=== PATIENT | male | born 1945 | race Asian ===

== ENCOUNTER 2023-08-27 11:40 | Inpatient (IN) | payer MEDICARE ==
[~2023-08-27] VITALS: Ht 175.3 cm; Wt 69.0 kg
[~2023-08-27 11:40] MED LIST: AMLO1TAB22 PO; ASPI81CH43 PO; GLIP10TA9 PO; INSLANTI SC; LIS20T PO; LISI20TA56 PO; MET25T PO; METF-370 PO; METF-371 PO; NYS5LQ MT; PIOG1TAB36 PO; PRAV20TA3 PO; TAMS0.4C36 PO
[2023-08-27 12:15] VITALS: PULSE 80; RESP 20; O2SAT 97
[2023-08-27 12:33] LABS: Basophils # (auto) 0.1 10 ^3/uL (0-0.2); Basophils % (auto) 1.5 % (0.0-2.0); Eosinophils # (auto) 0.1 10 ^3/uL (0-0.8); Eosinophils % (auto) 1.3 % (0.0-7.0); Hematocrit 37.2 % (41.0-53.0); Hemoglobin 12.6 g/dL (13.5-17.5); Lymphocytes # (auto) 1.2 10 ^3/uL (0.4-5.4); Lymphocytes % (auto) 23.7 % (10.0-50.0); Mean Corpuscular Hemoglobin 31.4 pg (28.0-32.0); Mean Corpuscular Hgb Conc. 33.9 g/dL (32.0-36.0); Mean Corpuscular Volume 92.5 fL (80.0-100.0); Monocytes # (auto) 0.4 10 ^3/uL (0-1.3); Monocytes % (auto) 7.5 % (0.0-12.0); Neutrophils # (auto) 3.2 10 ^3/uL (1.6-8.6); Red Blood Cells 4.02 10^6/uL (4.5-5.90); Red Cell Distribution Width 13.9 % (11.8-14.3); White Blood Cell 4.9 10^3/uL (4.4-10.8)
[2023-08-27 12:41] LABS: Chloride 101 mmol/L (98-107); Potassium 4.2 mmol/L (3.5-5.1); Sodium 134 mmol/L (136-145)
[2023-08-27 12:42] LABS: Anion Gap 6 (5-15); Carbon Dioxide 27 mmol/L (20-30)
[2023-08-27 12:47] LABS: BUN/Creatinine Ratio 21.4 (10.0-20.0); Blood Urea Nitrogen 22 mg/dL (9-23)
[2023-08-27 12:57] LABS: Glucose 313 mg/dL (74-106)
[2023-08-27] MEDS ORDERED: DEXTROSE (50%) 50ML SYRG IV PRN ×2 (13:45→14:15)
[2023-08-27] MEDS ORDERED: HYDROcodone-ACET 5/325MG TAB PO PRN ×2 (14:15→14:30)
[2023-08-27] MEDS ORDERED: NITROGLYCERIN 0.4 MG SL TAB SL PRN ×2 (14:15→14:30)
[2023-08-27] MEDS ORDERED: SODIUM CHLORIDE 0.9% 1,000 ML IV SCH (14:15)
[2023-08-27] MEDS ORDERED: ACETAMINOPHEN 325 MG TAB PO PRN ×2 (14:15→14:30)
[2023-08-27] MEDS ORDERED: MORPHINE SULFATE INJ 2 MG/ml SYRG IV PRN ×2 (14:15→14:30)
[2023-08-27] MEDS ORDERED: KETOROLAC TROMETH 30 MG/ML 1ML VIAL IV PRN (14:30)
[2023-08-27] MEDS ORDERED: MECLIZINE HCL 25 MG TAB PO PRN (14:30)
[2023-08-27] MEDS: KETOROLAC TROMETH 30 MG/ML 1ML VIAL IV ONE (15:04)
[2023-08-27] MEDS: SODIUM CHLORIDE 0.9% 1,000 ML IV SCH (15:17)
[2023-08-27] MEDS: MECLIZINE HCL 25 MG TAB PO ONE (15:18)
[2023-08-27] MEDS: PIOGLITAZONE HYDROCHLORIDE 30 MG TAB PO SCH (15:37)
[2023-08-27] MEDS ORDERED: ACCU-CHEK COMFORT CURVE STRIP VI SCH (17:00)
[2023-08-27] MEDS ORDERED: InsuLIN REG 1unit/0.01ml Soln (100units/ml) SC SCH ×2 (17:00→22:00)
[2023-08-27] MEDS: ACCU-CHEK COMFORT CURVE STRIP VI SCH (17:04)
[2023-08-27] MEDS: InsuLIN REG 1unit/0.01ml Soln (100units/ml) SC SCH ×2 (17:04→21:55)
[2023-08-27] MEDS: NYSTATIN (MOUTH-THROAT) 500,000 UNITS/5 ML SUSP MT SCH (17:49)
[2023-08-27] MEDS ORDERED: NYSTATIN (MOUTH-THROAT) 500,000 UNITS/5 ML SUSP MT SCH (18:00)
[2023-08-27 19:20] VITALS: PULSE 91; RESP 21; O2SAT 96
[2023-08-27] MEDS: metFORMIN HYDROCHLORIDE 500 MG TAB PO SCH (21:13)
[2023-08-27] MEDS: METOPROLOL TARTRATE 25 MG TAB PO SCH (21:15)
[2023-08-27] MEDS: glipiZIDE 5 MG TAB PO SCH (21:15)
[2023-08-27] MEDS ORDERED: METOPROLOL TARTRATE 25 MG TAB PO SCH (22:00)
[2023-08-27] MEDS ORDERED: GLIPIZIDE PO SCH (22:00)
[2023-08-27] MEDS ORDERED: metFORMIN HYDROCHLORIDE 500 MG TAB PO SCH (22:00)
[2023-08-28] VITALS (7 sets, daily range): BP systolic 131–160; BP diastolic 57–89; PULSE 77–94; RESP 18–19; TEMP 97.3–98.2; O2SAT 93–98
[2023-08-28 05:42] LABS: Basophils # (auto) 0 10 ^3/uL (0-0.2); Basophils % (auto) 0.8 % (0.0-2.0); Eosinophils # (auto) 0.2 10 ^3/uL (0-0.8); Hematocrit 37.2 % (41.0-53.0); Hemoglobin 12.6 g/dL (13.5-17.5); Lymphocytes # (auto) 1.4 10 ^3/uL (0.4-5.4); Lymphocytes % (auto) 25.9 % (10.0-50.0); Mean Corpuscular Hemoglobin 31.5 pg (28.0-32.0); Mean Corpuscular Hgb Conc. 33.9 g/dL (32.0-36.0); Mean Corpuscular Volume 92.9 fL (80.0-100.0); Monocytes # (auto) 0.5 10 ^3/uL (0-1.3); Monocytes % (auto) 8.8 % (0.0-12.0); Neutrophils # (auto) 3.3 10 ^3/uL (1.6-8.6); Neutrophils % (auto) 61.5 % (37.0-80.0); Nucleated Red Blood Cells % 0.1 %; Red Cell Distribution Width 13.7 % (11.8-14.3); White Blood Cell 5.4 10^3/uL (4.4-10.8)
[2023-08-28 06:04] LABS: Alanine Aminotransferase 23 U/L (7-40); Albumin 3.7 g/dL (3.2-4.8); Alkaline Phosphatase 77 U/L (46-116); Anion Gap 9 (5-15); Aspartate Aminotransferase 20 U/L (13-40); BUN/Creatinine Ratio 15.6 (10.0-20.0); Bilirubin, Total 1.4 mg/dL (0.2-1.0); Blood Urea Nitrogen 14 mg/dL (9-23); Calcium 9.3 mg/dL (8.5-10.1); Carbon Dioxide 22 mmol/L (20-30); Chloride 104 mmol/L (98-107); Potassium 3.9 mmol/L (3.5-5.1); Sodium 135 mmol/L (136-145); Total Protein 6.1 g/dL (5.7-8.2)
[2023-08-28 06:41] LABS: Glucose 183 mg/dL (74-106)
[2023-08-28] MEDS ORDERED: amLODIPine BESYLATE 5 MG TAB PO SCH (10:00)
[2023-08-28] MEDS ORDERED: ENOXAPARIN SOD 40 MG/0.4 ML SYRINGE SC SCH (10:00)
[2023-08-28] MEDS: PRAVASTATIN SODIUM 20 MG TAB PO SCH (10:00)
[2023-08-28] MEDS ORDERED: PRAVASTATIN SODIUM 20 MG TAB PO SCH (10:00)
[2023-08-28] MEDS ORDERED: [UNRECOGNIZED DRUG - OTHER] PO SCH (10:00)
[2023-08-28] MEDS ORDERED: LISINOPRIL 20 MG TAB PO SCH (10:00)
[2023-08-28] MEDS ORDERED: TAMSULOSIN HYDROCHLORIDE 0.4 MG CAP PO SCH (10:00)
[2023-08-28] MEDS ORDERED: ASPirin 81 mg TAB PO SCH (10:00)
[2023-08-28] MEDS: TAMSULOSIN HYDROCHLORIDE 0.4 MG CAP PO SCH (10:34)
[2023-08-28] MEDS: ASPirin 81 mg TAB PO SCH (10:34)
[2023-08-28] MEDS: LISINOPRIL 20 MG TAB PO SCH (10:34)
[2023-08-28] MEDS: amLODIPine BESYLATE 5 MG TAB PO SCH (10:35)
[2023-08-28] MEDS: ENOXAPARIN SOD 40 MG/0.4 ML SYRINGE SC SCH (10:36)
== END 2023-08-28 14:00 | disposition home or self-care (01) | DRG 69 ==
LOC: ER 11:40 → TELE 14:01 → ER 14:04 → TELE-EAST 22:33
PROVIDERS: ADMIT Nurse Practitioner Family; ATTEND Internal Medicine
DX: G45.9 Transient cerebral ischemic attack, unspecified (principal); E11.65 Type 2 diabetes mellitus with hyperglycemia; E78.5 Hyperlipidemia, unspecified; I10 Essential (primary) hypertension; F17.210 Nicotine dependence, cigarettes, uncomplicated; Z91.148 Patient's other noncompliance with medication regimen for other reason; Z86.73 Personal history of transient ischemic attack (TIA), and cerebral infarction without residual deficits
CPT/HCPCS: 36415; 70450; 80048; 80053; 82962; 85025; 87081; 93005; G0378; J1815

== ENCOUNTER 2024-08-22 20:21 | Inpatient (IN) | payer MEDICARE ==
[~2024-08-22] VITALS: Ht 162.6 cm; Wt 66.4 kg
[~2024-08-22 20:21] MED LIST changes: -TAMS0.4C36 PO; +TAMS0.4C39 PO
[2024-08-22 20:30] VITALS: PULSE 103; RESP 16; O2SAT 97
--- NOTE | 2024-08-22 20:45 | ED.PDOC ---
SOB-HPI HPI Comments 79 year old male came to emergency room via EMS for shortness of breath. Per EMS, there is a language barrier, call for shortness of breath, and upon their arrival, patient was saturating at 87-88% on room air. Patient was placed on oxygen cannula and rushed to the ER for further evaluation and management. No family member/ building cleaning supervisor at bedside at this time of care to provide more information. Chief Complaint: Shortness of Breath Time Seen by MD: 20:45 Primary Care Provider: SYLVIA Day notes: Trim Attacher Notes Information Source: Emergency Med Personnel Mode of Arrival: EMS Severity: Moderate Timing: Hours Duration: Since onset Context: With Light Exertion PE Risk Factors: None History of: None Prehospital treatment: Oxygen Modifying Factors: Nothing Past Medical History PAST MEDICAL HISTORY: DM, High Lipids, HTN, TIA Surgical History: Denies all surgeries Family History Family History: Reviewed,noncontributory to illness Social History Smoker: Non-Smoker Alcohol: Denies ETOH Use Drugs: Denies Drug Use Lives In: Home Constitutional: denies: chills, diaphoresis, fatigue, fever, malaise, sweats, weakness, others EENTM: denies: blurred vision, double vision, ear bleeding, ear discharge, ear drainage, ear pain, ear ringing, eye pain, eye redness, hearing loss, mouth pain, mouth swelling, nasal discharge, nose bleeding, nose congestion, nose pain, photophobia, tearing, throat pain, throat swelling, voice changes, others Respiratory: reports: SOB at rest, shortness of breath; denies: cough, h emoptysis, orthopnea, SOB with excertion, stridor, wheezing, others Cardiovascular: denies: chest pain, dizzy spells, diaphoresis, Dyspnea on exertion, edema, irregular heart beat, left arm pain, lightheadedness, palpitations, PND, syncope, others Gastrointestinal: denies: abdomen distended, abdominal pain, blood streaked bowels, constipated, diarrhea, dysphagia, difficulty swallowing, hematemesis, melena, nausea, poor appetite, poor fluid intake, rectal bleeding, rectal pain, vomiting, others Genitourinary: denies: burning, dysuria, flank pain, frequency, hematuria, incontinence, penile discharge, penile sore, pain, testicle pain, testicle swelling, urgency, others Neurological: denies: dizziness, fainting, headache, left sided numbness, left sided weakness, numbness, paresthesia, pre-existing deficit, right sided numbness, right sided weakness, seizure, speech problems, tingling, tremors, weakness, others Musculoskeletal: denies: back pain, gout, joint pain, joint swelling, muscle pain, muscle stiffness, neck pain, others Integumetry: denies: bruises, change in color, change in hair/nails, dryness, laceration, lesions, lumps, rash, wounds, others Allergic/Immunocompromised: denies: Difficulty Healing, Frequent Infections, Hives, Itching, others Hematologic/Lymphatic: denies: anemia, blood clots, easy bleeding, easy bruising, swollen glands, others Endocrine: denies: excessive hunger, excessive sweating, excessive thirst, excessive urination, flushing, intolerance to cold, intolerance to heat, unexplained weight gain, unexplained weight loss, others Psychiatric: denies: anxiety, bipolar disorder, depression, hopeless, panic disorder, schizophrenia, sleepless, suicidal, others Physical Exam General Appearance: No Apparent Distress, Normal HEENT: Normal ENT Inspection, Pharynx Normal, TMs Normal Neck: Full Range of Motion, Non-Tender, Normal, Normal Inspection Respiratory: Chest Non-Tender, Lungs Clear, No Accessory Muscle Use, Normal Breath Sounds, Respiratory Distress Cardiovascular: No Edema, No JVD, No Murmur, No Gallop, Normal Peripheral Pulses, Regular Rate/Rhythm Breast Exam: Deferred Gastrointestinal: No Organomegaly, Non Tender, No Pulsatile Mass, Normal Bowel Sounds, Soft Genitalia: Deferred Pelvic: Deferred Rectal: Deferred Extremities: No calf tenderness, Normal capillary refill, Normal inspection, Normal range of motion, Non-tender, No pedal edema Musculoskeletal : Apperance: Normal Neurologic: Alert, pulp grinder II-XII nml as Tested, No Motor Deficits, Normal Affect, Normal Mood, No Sensory Deficits Cerebellar Function: Normal Reflexes: Normal Skin: Dry, Normal Color, Warm Lymphatic: No Adenopathy Was a procedure done? Was a procedure done?: No Differential Dx Differential Diagnosis: Asthma, Bronchitis, COPD, Myocardial infarction, Pneumonia, Respiratory Distress, URI X-Ray, Labs, Meds, VS Vital Signs Date Time Temp Pulse Resp B/P (MAP) Pulse Ox O2 Delivery O2 Flow Rate FiO2 08/22/24 21:30 97.9 111 20 151/76 (101) 95 97.9 08/22/24 21:16 116 08/22/24 21:10 125 08/22/24 20:55 24 97 Oxymizer 10 72 72 08/22/24 20:30 103 16 97 Oxymizer 10 100 100 08/22/24 20:21 98.9 117 40 187/119 (141) 99 98.9 Lab Test 08/22/24 21:47 08/22/24 21:15 08/22/24 20:51 Range/Units Troponin I High Sensitivity 220 *H 220 *H </=54 ng/L Urine Color Light-yellow Yellow Urine Clarity Clear Clear Urine pH 5.5 5.0-9.0 Urine Specific [place] 1.014 1.001-1.035 Urine Protein 1+ H Negative Urine Ketones Negative Negative Urine Blood Negative Negative /uL Urine Nitrite Negative Negative Urine Bilirubin Negative Negative Urine Urobilinogen Normal Negative mg/dL Urine Leukocyte Esterase Negative Negative /uL Urine RBC 1 0 - 3 /hpf Urine Microscopic WBC 4 H 0-3 /HPF Urine Squamous Epithelial Cells Few <5 /hpf Urine Bacteria None seen None Seen /hpf Urine Glucose Normal Normal mg/dL White Blood Count 8.6 4.4-10.8 10^3/uL Red Blood Count 4.35 L 4.5-5.90 10^6/uL Hemoglobin 13.6 13.5-17.5 g/dL Hematocrit 40.6 L 41.0-53.0 % Mean Corpuscular Volume 93.2 80.0-100.0 fL Mean Corpuscular Hemoglobin 31.2 28.0-32.0 pg Mean Corpuscular Hemoglobin Concent 33.5 32.0-36.0 g/dL Red Cell Distribution Width 14.3 11.8-14.3 % Platelet Count 157 140-450 10^3/uL Mean Platelet Volume 8.1 6.9-10.8 fL Neutrophils (%) (Auto) 75.2 37.0-80.0 % Lymphocytes (%) (Auto) 17.1 10.0-50.0 % Monocytes (%) (Auto) 5.2 0.0-12.0 % Eosinophils (%) (Auto) 2.0 0.0-7.0 % Basophils (%) (Auto) 0.5 0.0-2.0 % Neutrophils # (Auto) 6.5 1.6-8.6 10 ^3/uL Lymphocytes # (Auto) 1.5 0.4-5.4 10 ^3/uL Monocytes # (Auto) 0.4 0-1.3 10 ^3/uL Eosinophils # (Auto) 0.2 0-0.8 10 ^3/uL Basophils # (Auto) 0 0-0.2 10 ^3/uL Nucleated Red Blood Cells 0.0 % Sodium Level 136 136-145 mmol/L Potassium Level 4.4 3.5-5.1 mmol/L Chloride Level 104 98-107 mmol/L Carbon Dioxide Level 24 20-31 mmol/L Anion Gap 8 5-15 Blood Urea Nitrogen 19 9-23 mg/dL Creatinine 1.45 H 0.700-1.30 mg/dL Glomerular Filtration Rate Calc 49 >90 mL/min BUN/Creatinine Ratio 13.1 10.0-20.0 Serum Glucose 211 H 74-106 mg/dL Calcium Level 9.6 8.7-10.4 mg/dL B-Type Natriuretic Peptide 652.95 0-100 pg/mL Current Medications Medications (Trade) Dose Ordered Sig/Aliya Route Start Time Stop Time Status Last Admin Albuterol (Ventolin Medneb) 5 mg ONCE ONCE NEB 08/22/24 20:45 08/22/24 20:46 DC 08/22/24 21:10 Ipratropium [place] (Atrovent Medneb) 0.5 mg ONCE ONCE NEB 08/22/24 20:45 08/22/24 20:46 DC 08/22/24 21:10 CHEST RADIOGRAPH Indication: sob Technique: Single frontal view of the chest was obtained Comparison: None FINDINGS: Lines and Tubes: None Lungs: Bilateral perihilar infiltrates with bilateral lower lobe interstitial infiltrates and areas of atelectasis. Pleura: No effusion. No pneumothorax. Cardiomediastinal contours: Unremarkable Bones: No acute osseous abnormality. IMPRESSION: 1. Findings may represent pneumonia or congestive failure Time of 1ST Reevaluation: 20:39 Reevaluation 1ST: Unchanged Patient Education/Counseling: Diagnosis, Treatment Family Education/Counseling: No Family Present Departure 1 Departure Time of Disposition: 22:42 (Patient has signs and symptoms have volume overload versus pneumonia. Patient empirically covered with antibiotics. We will not give the patient a full fluid bolus because patient also appears volume overloaded. We will admit patient for further workup and expert consultation) Impression: Primary Impression: Pneumonia Qualified Codes: J18.9 - Pneumonia, unspecified organism Additional Impression: Acute on chronic systolic (congestive) heart failure Disposition: 09 ADMITTED INPATIENT Admit to: Med Surg Condition: Serious Critical Care Note Critical Care Time?: Yes (35 min-critical care time only) Critical care comment: Shortness of breath Authorized and Performed by: Cristi Berrios MD Total critical care time: Approximately 38 minutes Due to a high probability of clinically significant, life threatening deterioration, the patient required my highest level of preparedness to intervene emergently and I personally spent this critical care time directly and personally managing the patient. This critical care time included obtaining a history; examining the patient; pulse oximetry; ordering and review of studies; arranging urgent treatment with development of a management plan; evaluation of patient's response to treatment; frequent reassessment; and, discussions with other providers. This critical care time was performed to assess and manage the high probability of imminent, life-threatening deterioration that could result in multi-organ failure. It was exclusive of separately billable procedures and treating other patients and teaching time. Please see my other sections and the rest of the note for further information on patient assessment and treatment. Stability Stability form required: No Heart Score Heart Score: Heart Score Response (Comments) Value History Moderate Suspicious 1 EKG Normal 0 Age >65 2 Risk Factors >3 or Hx ASHD 2 Troponin Normal limit 0 Total 5 I personally scribed for CRISTI BERRIOS MD ([email or web address]) on 08/22/24 at 20:45. Electronically submitted by [place] ([employer]). I personally scribed for CRISTI BERRIOS MD (STEVEN) on 08/22/24 at 21:12. Electronically submitted by [place] ([employer]). CIRSTI BERRIOS MD Aug 22, 2024 20:45
--- NOTE | 2024-08-22 21:09 | DVH ---
CHEST RADIOGRAPH Indication: sob Technique: Single frontal view of the chest was obtained Comparison: None FINDINGS: Lines and Tubes: None Lungs: Bilateral perihilar infiltrates with bilateral lower lobe interstitial infiltrates and areas o f atelectasis. Pleura: No effusion. No pneumothorax. Cardiomediastinal contours: Unremarkable Bones: No acute osseous abnormality. IMPRESSION: 1. Findings may represent pneumonia or congestive failure
[2024-08-22 21:10] LABS: Basophils # (auto) 0 10 ^3/uL (0-0.2); Basophils % (auto) 0.5 % (0.0-2.0); Chloride 104 mmol/L (98-107); Eosinophils # (auto) 0.2 10 ^3/uL (0-0.8); Hematocrit 40.6 % (41.0-53.0); Hemoglobin 13.6 g/dL (13.5-17.5); Lymphocytes # (auto) 1.5 10 ^3/uL (0.4-5.4); Lymphocytes % (auto) 17.1 % (10.0-50.0); Mean Corpuscular Hemoglobin 31.2 pg (28.0-32.0); Mean Corpuscular Hgb Conc. 33.5 g/dL (32.0-36.0); Mean Corpuscular Volume 93.2 fL (80.0-100.0); Monocytes # (auto) 0.4 10 ^3/uL (0-1.3); Monocytes % (auto) 5.2 % (0.0-12.0); Neutrophils # (auto) 6.5 10 ^3/uL (1.6-8.6); Neutrophils % (auto) 75.2 % (37.0-80.0); Platelet Count (auto) 157 10^3/uL (140-450); Potassium 4.4 mmol/L (3.5-5.1); Red Blood Cells 4.35 10^6/uL (4.5-5.90); Red Cell Distribution Width 14.3 % (11.8-14.3); Sodium 136 mmol/L (136-145); White Blood Cell 8.6 10^3/uL (4.4-10.8)
[2024-08-22] MEDS: IPRATROPIUM BROM 0.5 MG/2.5ML INH SOL NEB ONE (21:10)
[2024-08-22] MEDS: ALBUTEROL SULF 2.5 MG/0.5ML(0.5%) NEB SOLN NEB ONE (21:10)
[2024-08-22 21:11] LABS: Anion Gap 8 (5-15); Calcium 9.6 mg/dL (8.7-10.4); Carbon Dioxide 24 mmol/L (20-31)
[2024-08-22 21:16] LABS: BUN/Creatinine Ratio 13.1 (10.0-20.0); Blood Urea Nitrogen 19 mg/dL (9-23)
[2024-08-22 21:17] LABS: Urine Bacteria None Seen /hpf (None Seen)
[2024-08-22 21:47] LABS: Urine Blood Negative /uL (Negative); Urine Clarity Clear (Clear); Urine Color Light-Yellow (Yellow); Urine Protein, UAD 1+ (Negative); Urine Specific Gravity 1.014 (1.001-1.035); Urine Squamous Epithelial Cell FEW /hpf (<5); Urine Urobilinogen Normal (Negative); Urine WBC 4 /HPF (0-3); Urine pH 5.5 (5.0-9.0)
[2024-08-22 21:54] LABS: Glucose 211 mg/dL (74-106)
[2024-08-22] MEDS: VANCOMYCIN 1GM/250ML KIT 200 ML IV ONE (22:45)
[2024-08-22] MEDS: AZITHROMYCIN 250 MG TAB PO ONE (22:45)
[2024-08-22] MEDS ORDERED: DEXTROSE (50%) 50ML SYRG IV PRN (23:30)
[2024-08-22] MEDS ORDERED: ACETAMINOPHEN 325 MG TAB PO PRN (23:30)
[2024-08-22] MEDS ORDERED: hydrALAZINE HCL 20 MG/ML VL IV PRN (23:30)
[2024-08-22] MEDS ORDERED: NITROGLYCERIN 0.4 MG SL TAB SL PRN (23:30)
[2024-08-22] MEDS: FUROSEMIDE 40 MG/4 ML VIAL IV ONE ×2 (23:30→23:45)
[2024-08-22] MEDS ORDERED: DOCUSATE SOD 100 MG CAP PO PRN (23:30)
[2024-08-22] MEDS ORDERED: MORPHINE SULFATE INJ 2 MG/ml SYRG IV PRN (23:30)
[2024-08-22] MEDS ORDERED: ONDANSETRON HCL 4 MG/2 ML VIAL IV PRN (23:30)
--- NOTE | 2024-08-22 23:55 | DVHHP2 ---
History of Present Illness Reason for Visit: CHF exacerbation, unspecified History of Present Illness The patient is a 79-year-old male with past medical history of hypertension, TIA, hyperlipidemia, and diabetes mellitus who presented to [facility] with complaint of shortness of breaths. Patient reports symptoms pr ogressively get worse with increased work of breathing, getting worse that prompted this visit. Patient was seen and evaluated in the ED, laboratory data shows WBC 8.6, platelets 152, sodium 136, potassium 4.4, BUN 19, creatinine 1.45, GFR 49, glucose 211, troponin 220, lactic acid 3.3 trending down to 1.8, BNP 652.95, blood pressure 187/119 trending down to 151/76, heart rate 112,, temperature 97.9 F, O2 saturation 97% oxygen. Chest x-ray revealing presence of pneumonia congestive failure. Patient was started on IV antibiotic regimen azithromycin, vancomycin, please see medication orders section in the computer. On my assessment, patient denies chest pain, no headache, no dizziness, no diaphoresis, currently on oxygen, no nausea, no vomiting, no fever, no chills. Patient was admitted for further evaluation and medical management. Past Medical History DM, High Lipids, HTN, TIA Past Surgical History Denies all surgeries Family History Reviewed, noncontributory to the management of this case. Past Social History The patient lives at home, denies smoking, alcohol or illicit drugs abuse. Review of Systems Constitutional: Yes: Weakness; No: Fever, Chills, Sweats, Malaise, Other ENT: No: Ear pain, Ear discharge, Nose pain, Nose discharge, Nose congestion, Mouth pain, Mouth swelling, Throat pain, Throat swelling, Other Respiratory: Shortness of breath, Other (SOB at rest); No: Cough, Dry, SOB with excertion, Wheezing, Hemoptysis, Pleuritic Pain, Sputum, Wheezing Cardiovascular: No: Chest Pain, Palpitations, Orthopnea, Paroxysmal Noc. Dyspnea, Edema, Lt Headedness, Other Gastrointestinal: No: Nausea, Vomiting, Abdominal Pain, Diarrhea, Constipation, Melena, Hematochezia, Other Genitourinary: No Dysuria, No Frequency, No Incontinence, No Hematuria, No Ret ention, No Other Musculoskeletal: No: other, neck pain, shoulder pain, arm pain, back pain, hand pain, leg pain, foot pain Skin: No: Rash, Lesions, Jaundice, Bruising, Other Neurological: No: Weakness, Numbness, Incoordination, Change in speech, Confusion, Seizures, Other Allergies: Coded Allergies: NO KNOWN ALLERGIES (Unverified , 03/09/14) Exam Vital Signs Vital Signs Date Time Temp Pulse Resp B/P (MAP) Pulse Ox O2 Delivery O2 Flow Rate FiO2 08/22/24 21:30 97.9 111 20 151/76 (101) 95 97.9 08/22/24 20:55 Oxymizer 10 72 72 General Appearance: Alert, Oriented X3, Cooperative, No acute distress HEENT: Atraumatic, PERRLA, EOMI, Mucous membr. moist/pink Respiratory: Clear to auscultation, Normal air movement Cardiovascular: Regular rate, Normal S1, Normal S2, No murmurs Abdominal: Normal bowel sounds, Soft, No tenderness, No hepatospenomegaly, No m asses Extremities: No clubbing, No cyanosis, No edema, Normal pulses, No tenderness/swelling Skin: No rashes, No breakdown, No significant lesion Neuro: Normal speech, Normal tone, Sensation intact, Cranial nerves 3-12 NL, Reflexes 2+, Other (Generalized weakness) Psych/Mental Status: Mental status NL, Mood NL Labs/Xrays Labs Test 08/22/24 23:51 08/22/24 21:15 08/22/24 20:51 Range/Units Urine Color Light-yellow Yellow Urine Clarity Clear Clear Urine pH 5.5 5.0-9.0 Urine Specific [place] 1.014 1.001-1.035 Urine Protein 1+ H Negative Urine Ketones Negative Negative Urine Blood Negative Negative /uL Urine Nitrite Negative Negative Urine Bilirubin Negative Negative Urine Urobilinogen Normal Negative mg/dL Urine Leukocyte Esterase Negative Negative /uL Urine RBC 1 0 - 3 /hpf Urine Microscopic WBC 4 H 0-3 /HPF Urine Squamous Epithelial Cells Few <5 /hpf Urine Bacteria None seen None Seen /hpf Urine Glucose Normal Normal mg/dL White Blood Count 8.6 4.4-10.8 10^3/uL Red Blood Count 4.35 L 4.5-5.90 10^6/uL Hemoglobin 13.6 13.5-17.5 g/dL Hematocrit 40.6 L 41.0-53.0 % Mean Corpuscular Volume 93.2 80.0-100.0 fL Mean Corpuscular Hemoglobin 31.2 28.0-32.0 pg Mean Corpuscular Hemoglobin Concent 33.5 32.0-36.0 g/dL Red Cell Distribution Width 14.3 11.8-14.3 % Platelet Count 157 140-450 10^3/uL Mean Platelet Volume 8.1 6.9-10.8 fL Neutrophils (%) (Auto) 75.2 37.0-80.0 % Lymphocytes (%) (Auto) 17.1 10.0-50.0 % Monocytes (%) (Auto) 5.2 0.0-12.0 % Eosinophils (%) (Auto) 2.0 0.0-7.0 % Basophils (%) (Auto) 0.5 0.0-2.0 % Neutrophils # (Auto) 6.5 1.6-8.6 10 ^3/uL Lymphocytes # (Auto) 1.5 0.4-5.4 10 ^3/uL Monocytes # (Auto) 0.4 0-1.3 10 ^3/uL Eosinophils # (Auto) 0.2 0-0.8 10 ^3/uL Basophils # (Auto) 0 0-0.2 10 ^3/uL Nucleated Red Blood Cells 0.0 % Sodium Level 136 136-145 mmol/L Potassium Level 4.4 3.5-5.1 mmol/L Chloride Level 104 98-107 mmol/L Carbon Dioxide Level 24 20-31 mmol/L Anion Gap 8 5-15 Blood Urea Nitrogen 19 9-23 mg/dL Creatinine 1.45 H 0.700-1.30 mg/dL Glomerular Filtration Rate Calc 49 >90 mL/min BUN/Creatinine Ratio 13.1 10.0-20.0 Serum Glucose 211 H 74-106 mg/dL Calcium Level 9.6 8.7-10.4 mg/dL B-Type Natriuretic Peptide 652.95 0-100 pg/mL PATIENT: DIDI MANTILLA ACCT: [id number] UNIT: [id number] : 1945 LOC: ER ROOM / BED: / AGE / SEX: 79 / M ADM STATUS: REG ER SERVICE 34 ORDERING PHYSICIAN: CRISTI BERRIOS MD PROCEDURE(s): CXRP - CHEST PORTABLE REASON: sob ORDER NUMBER(s): [id number], ACCESSION NUMBER(s): [id number] CHEST RADIOGRAPH Indication: sob Technique: Single frontal view of the chest was obtained Comparison: None FINDINGS: Lines and Tubes: None Lungs: Bilateral perihilar infiltrates with bilateral lower lobe interstitial infiltrates and areas of atelectasis. Pleura: No effusion. No pneumothorax. Cardiomediastinal contours: Unremarkable Bones: No acute osseous abnormality. IMPRESSION: 1. Findings may represent pneumonia or congestive failure Assessment/Plan Assessment/Plan Pneumonia, unspecified organism Acute renal injury Diabetes mellitus with hyperglycemia Elevated troponin Generalized weakness Hypertensive urgency Elevated lactic acid level Acute on chronic systolic (congestive) heart failure Plan 1. Admit to telemetry unit 2. Breathing treatment 3. Pain control management 4. IV antibiotic management 5. Management of fluids and electrolytes 6. Consultation for wound care etc 7. Diagnostic test chest x-ray 8. DVT prophylaxis on aspirin 9. Repeat labs CBC, CMP in a.m. 10. Home medication reviewed and reconciled 11. Continue with current medical management 12. Treatment plan discussed with patient and RN. Patient verbalized understanding. Plan discussed with: Patient, Other (RN) My Orders Orders - NOEL LUGO DNP Procedure Category Date Status Time Albuterol Medneb PHA 08/22/24 Verified (Ventolin Medneb) 23:30 Azithromycin 500mg/ PHA 08/23/24 Verified 250ml (Zithromax 50 10:00 Ipratropium Medneb PHA 08/22/24 Verified (Atrovent Medneb) 23:30 Aspirin Tablet PHA 08/23/24 Verified 10:00 Amlodipine Tablet PHA 08/23/24 Verified (Norvasc Tablet) 10:00 Furosemide Injection PHA 08/23/24 Verified (Lasix Injection) 10:00 Furosemide Injection PHA 08/22/24 Verified (Lasix Injection) 23:30 * Cardiology Consult CONS 08/22/24 Verified 23:20 Hydralazine Injection PHA 08/22/24 Verified (Apresoline Inject 23:30 Carvedilol Tablet PHA 08/23/24 Verified (Coreg Tablet) 10:00 Consistent DIET 08/23/24 Verified Carb(Ccho)Diabetes Breakfast Glucose Blood PHA 08/23/24 Verified (Accu-Chek Comfort 00:00 Moderate Insulin Ss PHA 08/23/24 Verified 00:00 Dextrose 50% Syringe PHA 08/22/24 Verified 23:30 Admit ADMIT 08/22/24 Verified 23:20 Allergies SEA 08/22/24 Verified 23:20 Code Status CODE 08/22/24 Verified 23:20 Sodium Chloride Lock PHA 08/23/24 Verified (Saline Lock Ns) 06:00 Oxygen Per Hour RT 08/22/24 Verified 23:20 Hydrocodone-Acet PHA 08/22/24 Verified 5/325mg Tab ([place] 23:30 Ondansetron Hcl PHA 08/22/24 Verified (Zofran) 23:30 Docusate Sodium PHA 08/22/24 Verified Capsule (Colace 23:30 Fall Risk Precautions SEA 08/22/[address] 23:20 Complete Blood Count LAB 08/23/24 Verified 04:00 Comprehensive LAB 08/23/24 Verified Metabolic Panel 04:00 Echo 2d Mode Cardiac US 08/22/24 Verified DOP 23:20 Condition: Serious SEA 08/22/24 Verified 23:20 Acetaminophen Tablet PHA 08/22/24 Verified (Tylenol Tablet) 23:30 Sequential SEA 08/22/24 Verified Compression Device Nitroglycerin PHA 08/22/24 Verified Sublingual (Ntrostat 23:30 Morphine Sulfate PHA 08/22/24 Verified Injection 23:30 Stat Ekg For Chest SEA 08/22/24 Verified Pain 23:20 Notify Md Of Changes SEA 08/22/24 Verified From Base 23:20 Immigration Coordinator For SEA 08/22/24 Verified 24 Hours 23:20 Emergency Dysrhythmia SEA 08/22/24 Verified Protocol 23:20 Rhythm Strips Once SEA 08/22/24 Verified Every Shift 23:20 Oxygen By Nasal RT 08/22/24 Verified Cannula 23:20 Problem List: (1) Pneumonia, unspecified organism (2) Diabetes mellitus with hyperglycemia (3) Hypertensive urgency (4) Generalized weakness (5) Elevated troponin (6) Elevated lactic acid level (7) Acute renal injury (8) Acute on chronic systolic heart failure Date of Service: Aug 23, 2024 Billing Provider: NOEL LUGO DNP Common Visit Codes: [id number] INP/OBS CARE (HIGH) NOEL LUGO DNP Aug 22, 2024 23:55
[2024-08-23] VITALS (10 sets, daily range): BP systolic 97–127; BP diastolic 59–96; PULSE 69–111; RESP 17–20; TEMP 97.6–99; O2SAT 95–100
[2024-08-23] MEDS: InsuLIN REG 1unit/0.01ml Soln (100units/ml) SC SCH
[2024-08-23] MEDS: ACCU-CHEK COMFORT CURVE STRIP VI SCH
[2024-08-23 00:28] LABS: Lactic Acid w/Reflex 3.3 mmol/L (0.4-2.0)
[2024-08-23] MEDS: CEFEPIME 2GM/50ML NS 50 ML IV ONE (01:56)
[2024-08-23] MEDS: ALBUTEROL SULF 2.5 MG/0.5ML(0.5%) NEB SOLN NEB PRN (02:32)
[2024-08-23] MEDS: IPRATROPIUM BROM 0.5 MG/2.5ML INH SOL NEB PRN (02:32)
[2024-08-23 04:40] LABS: Basophils # (auto) 0 10 ^3/uL (0-0.2); Basophils % (auto) 0.4 % (0.0-2.0); Eosinophils # (auto) 0.1 10 ^3/uL (0-0.8); Eosinophils % (auto) 1.1 % (0.0-7.0); Hematocrit 36.9 % (41.0-53.0); Hemoglobin 12.9 g/dL (13.5-17.5); Lymphocytes # (auto) 1.9 10 ^3/uL (0.4-5.4); Lymphocytes % (auto) 16.6 % (10.0-50.0); Mean Corpuscular Volume 91.4 fL (80.0-100.0); Monocytes # (auto) 0.9 10 ^3/uL (0-1.3); Monocytes % (auto) 8.2 % (0.0-12.0); Neutrophils # (auto) 8.4 10 ^3/uL (1.6-8.6); Neutrophils % (auto) 73.7 % (37.0-80.0); Nucleated Red Blood Cells % 0.3 %; Platelet Count (auto) 142 10^3/uL (140-450); Red Blood Cells 4.04 10^6/uL (4.5-5.90); Red Cell Distribution Width 14.2 % (11.8-14.3); White Blood Cell 11.4 10^3/uL (4.4-10.8)
[2024-08-23 04:49] LABS: Alanine Aminotransferase 22 U/L (7-40); Albumin 4.4 g/dL (3.2-4.8); Alkaline Phosphatase 56 U/L (46-116); Anion Gap 12 (5-15); Aspartate Aminotransferase 21 U/L (13-40); BUN/Creatinine Ratio 15.1 (10.0-20.0); Blood Urea Nitrogen 19 mg/dL (9-23); Calcium 9.9 mg/dL (8.7-10.4); Carbon Dioxide 20 mmol/L (20-31); Chloride 107 mmol/L (98-107); Potassium 3.6 mmol/L (3.5-5.1); Sodium 139 mmol/L (136-145); Total Protein 6.9 g/dL (5.7-8.2)
[2024-08-23 04:59] LABS: Bilirubin, Total 1.4 mg/dL (0.2-1.0); Glucose 110 mg/dL (74-106)
[2024-08-23] MEDS: SODIUM CHLOR 0.9% PF (SALINE LOCK) 10ML VIAL/SYR IV SCH (06:06)
[2024-08-23 09:04] LABS: Magnesium 1.8 mg/dL (1.6-2.6)
--- NOTE | 2024-08-23 09:06 | DVHINCON2 ---
Date Seen: Aug 23, 2024 Referring Physician KATHY Villarreal Reason for Consultation CHF exacerbation History of Present Illness This is an 79-year-old male patient who presents to the emergency room with chief complaint of worsening shortness of breath for two days. Cardiology has been consulted at this time for CHF exacerbation. The patient denies any previous history of CHF. Initial twelve lead electrocardiogram reveals sinus tachycardia. Initial troponin level of 220ng/L with current peak level at 334ng/L. Initial BNP level of 652.95pg/mL. Significant past medical history includes hypertension, dyslipidemia, type 2 diabetes mellitus, and tobacco use. The patient denies seeing a bulk sausage casing tier off in the outpatient setting. Of note, the patient came in with a blood pressure reaching as high as 187/119. Past Medical History Past medical history reviewed. No other significant than mentioned above. Past Surgical History Denies any previous surgeries Family History: Alcoholism Cancer G8 SISTER Family history: Diabetes mellitus G8 MOTHER G8 FATHER G8 BROTHER Family History Family history reviewed. Social History The patient has a 30 pack-year history, smokes approximately half a pack per day Denies any alcohol use Denies any drug use Allergies: Coded Allergies: NO KNOWN ALLERGIES (Unverified , 03/09/14) Home Meds Reported Medications Tetrabenazine (Tetrabenazine) 12.5 Mg Tab, 12.5 MG PO BID, TAB 08/23/24 Lisinopril (Lisinopril) 20 Mg Tab, 1 TAB PO DAILY 08/22/23 Glipizide (Glipizide) 10 Mg Tab, 2 TAB PO BID 08/22/23 Pioglitazone Hydrochloride (PIOGLITAZONE HCL) 15 Mg Tab, 1 TAB PO DAILY 08/22/23 Metformin Hydrochloride (Metformin Hcl) 850 Mg Tab, 1 TAB PO TID 08/22/23 Pravastatin Sodium (PRAVACHOL TABLET) 20 Mg Tb, 20 MG PO DAILY 03/09/14 Lisinopril (ZESTRIL TABLET) 20 Mg Tb, 20 MG PO DAILY 03/09/14 Home Meds Home medications reviewed. Current Medications Current Medications Medications (Trade) Dose Ordered Sig/Aliya Route PRN Reason Start Time Stop Time Status Last Admin Albuterol (Ventolin Medneb) 2.5 mg Q4HPRN PRN NEB SHORTNESS OF BREATH 08/22/24 23:30 08/23/24 02:32 Azithromycin 250 ml @ 125 mls/hr DAILY IV 08/23/24 10:00 Ipratropium [place] (Atrovent Medneb) 0.5 mg Q4HPRN PRN NEB SHORTNESS OF BREATH 08/22/24 23:30 08/23/24 02:32 Aspirin 81 mg DAILY PO 08/23/24 10:00 Amlodipine Besylate (Norvasc Tablet) 5 mg DAILY PO 08/23/24 10:00 Furosemide (Lasix Injection) 40 mg DAILY IV 08/23/24 10:00 Hydralazine HCl (Apresoline Injection) 10 mg Q6HP PRN IV SBP>150 08/22/24 23:30 Carvedilol (Coreg Tablet) 12.5 mg Q12HR PO 08/23/24 10:00 Diagnostic Test (Pha) (Accu-Chek Comfort Curve T) 1 strip IQ4HR 08/23/24 00:00 08/23/24 04:00 Insulin Human Regular (InsuLIN R) IQ4HR SC 08/23/24 00:00 Dextrose 50 ml UD PRN IV Blood Sugar LESS THAN 60 08/22/24 23:30 Sodium Chloride (Saline Lock Ns) 10 ml Q8HR IV 08/23/24 06:00 08/23/24 06:06 Acetaminophen/ Hydrocodone Bitart ([place] 5/325MG Tab) 1 tab Q4HP PRN PO MODERATE PAIN (4-6 PAIN SCALE) 08/22/24 23:30 Ondansetron HCl (Zofran) 4 mg Q4HP PRN IV NAUSEA / VOMITING 08/22/24 23:30 Docusate Sodium (Colace Capsule) 100 mg BIDPRN PRN PO FOR CONSTIPATION 08/22/24 23:30 Acetaminophen (Tylenol Tablet) 650 mg Q6HP PRN PO PAIN SCALE 1-3 OR TEMP>100.4 08/22/24 23:30 Nitroglycerin (Ntrostat Sublingual) 0.4 mg Q5MINP PRN SL FOR CHEST PAIN 08/22/24 23:30 Morphine Sulfate 2 mg Q30M PRN IV FOR CHEST PAIN 08/22/24 23:30 Ceftriaxone Sodium 50 ml @ 100 mls/hr DAILY@09 IV 08/23/24 09:00 UNV Review of Systems Constitutional: No symptom reported Ears, Nose, & Throat: No symptom reported Eyes: No symptom reported Neurological: No symptoms reported Pulmonary/Respiratory: Shortness of breath Cardiovascular: No symptom reported Gastrointestinal: No symptom reported Genitourinary: No symptom reported Musculoskeletal: No symptom reported Skin: No symptom reported Psychiatric: No symptom reported Endocrine: No symptom reported Hematologic/Lymphatic: No symptom reported Vital Signs Vital Signs Date Time Temp Pulse Resp B/P (MAP) Pulse Ox O2 Delivery O2 Flow Rate FiO2 08/23/24 06:15 95 19 102/51 (68) 95 08/23/24 02:05 Oxymizer 8 N/A 08/23/24 01:10 97.9 97.9 Physical Exam General Appearance: Cooperative. Well-developed. Well-nourished. No acute distress. Pulmonary/Respiratory: Diminished bilateral lower lobe sounds Cardiovascular/Chest: Regular rate and rhythm. Peripheral Pulses: 2+ Radial (R). 2+ Radial (L). 2+ Pedal (R). 2+ Pedal (L) Abdominal Exam: Normal bowel sounds. Ankle Exam: Negative ankle edema Lower extremities: Negative lower extremity edema Neuro/Mental Status: A/OX4, coherent. Thoughts/Psych: Normal thought pattern. Appropriate mood and affect. Good judgment and insight. Appearance: No acute distress. Skin Exam: Normal inspection. Normal color. Warm and dry. Labs/Diagnostic Data Labs Test 08/23/24 03:50 08/23/24 01:39 08/22/24 21:15 08/22/24 20:51 Range/Units White Blood Count 11.4 #H 4.4-10.8 10^3/uL Red Blood Count 4.04 L 4.5-5.90 10^6/uL Hemoglobin 12.9 L 13.5-17.5 g/dL Hematocrit 36.9 L 41.0-53.0 % Mean Corpuscular Volume 91.4 80.0-100.0 fL Mean Corpuscular Hemoglobin 32.0 28.0-32.0 pg Mean Corpuscular Hemoglobin Concent 35.0 32.0-36.0 g/dL Red Cell Distribution Width 14.2 11.8-14.3 % Platelet Count 142 140-450 10^3/uL Mean Platelet Volume 8.2 6.9-10.8 fL Neutrophils (%) (Auto) 73.7 37.0-80.0 % Lymphocytes (%) (Auto) 16.6 10.0-50.0 % Monocytes (%) (Auto) 8.2 0.0-12.0 % Eosinophils (%) (Auto) 1.1 0.0-7.0 % Basophils (%) (Auto) 0.4 0.0-2.0 % Neutrophils # (Auto) 8.4 1.6-8.6 10 ^3/uL Lymphocytes # (Auto) 1.9 0.4-5.4 10 ^3/uL Monocytes # (Auto) 0.9 0-1.3 10 ^3/uL Eosinophils # (Auto) 0.1 0-0.8 10 ^3/uL Basophils # (Auto) 0 0-0.2 10 ^3/uL Nucleated Red Blood Cells 0.3 % Sodium Level 139 136-145 mmol/L Potassium Level 3.6 3.5-5.1 mmol/L Chloride Level 107 98-107 mmol/L Carbon Dioxide Level 20 20-31 mmol/L Anion Gap 12 5-15 Blood Urea Nitrogen 19 9-23 mg/dL Creatinine 1.26 0.700-1.30 mg/dL Glomerular Filtration Rate Calc 58 >90 mL/min BUN/Creatinine Ratio 15.1 10.0-20.0 Serum Glucose 110 #H 74-106 mg/dL Hemoglobin A1c 5.9 H <5.7 % A1C Calcium Level 9.9 8.7-10.4 mg/dL Magnesium Level 1.8 1.6-2.6 mg/dL Total Bilirubin 1.4 H 0.2-1.0 mg/dL Aspartate Amino Transferase (AST) 21 13-40 U/L Alanine Aminotransferase (ALT) 22 7-40 U/L Alkaline Phosphatase 56 46-116 U/L Troponin I High Sensitivity 334 *H </=54 ng/L Total Protein 6.9 5.7-8.2 g/dL Albumin 4.4 3.2-4.8 g/dL Triglycerides Level 159 H < 150 mg/dL LDL Cholesterol 76 < 100 mg/dL Lactic Acid Level 1.8 0.4-2.0 mmol/L Urine Color Light-yellow Yellow Urine Clarity Clear Clear Urine pH 5.5 5.0-9.0 Urine Specific [place] 1.014 1.001-1.035 Urine Protein 1+ H Negative Urine Ketones Negative Negative Urine Blood Negative Negative /uL Urine Nitrite Negative Negative Urine Bilirubin Negative Negative Urine Urobilinogen Normal Negative mg/dL Urine Leukocyte Esterase Negative Negative /uL Urine RBC 1 0 - 3 /hpf Urine Microscopic WBC 4 H 0-3 /HPF Urine Squamous Epithelial Cells Few <5 /hpf Urine Bacteria None seen None Seen /hpf Urine Glucose Normal Normal mg/dL B-Type Natriuretic Peptide 652.95 0-100 pg/mL Assessment Rule out structural heart disease NSTEMI Hypertensive urgency, resolved Dyslipidemia Type II diabetes mellitus ?Pneumonia Acute kidney injury, resolved Tobacco use Plan/Recommendation We will continue with the following plan/recommendations (Dr. Taylor): * Obtain a transthoracic echocardiogram to evaluate cardiac function * Blood pressure control and lipid-lowering agent * Diuresis as tolerated * Antibiotics per primary care team Case discussed with Dr. Taylor. Rest of recommendations per clinical course and progression. Thank you for allowing us to care for this patient. Please call with any questions or concerns. Critical care time spent: 43 minutes This medical document was created using an electronic medical record system with voice recognition software and computerized dictation system. Although this document has been carefully reviewed, there might still be some phonetic and typographical errors. Occasional wrong-word or ``sound-alike substitutions may have occurred due to the inherent limitations of voice recognition software. These areas are purely typographical due to imperfections of the software programs and do not reflect any compromise in the patient's medical care. Please read the chart carefully and recognize, using context, where these substitutions have occurred. Plan discussed with: Patient NYHA Physical activity limitations: NA Date of Service: Aug 23, 2024 Billing Provider: ULI RIVERA Cardiology Common Codes: 80386-PLLQZPT INP/OBS CARE (High) Cardiology Consultation Codes: 59334-[id number] CONSULT <45MIN ULI RIVERA Aug 23, 2024 09:06
[2024-08-23] MEDS: cefTRIAXone 1GM/50ML D5W 50 ML IV SCH (09:26)
[2024-08-23] MEDS: ASPirin 81 mg TAB PO SCH (10:46)
[2024-08-23] MEDS: CARVEDILOL 12.5 MG TAB PO SCH (10:46)
[2024-08-23] MEDS: amLODIPine BESYLATE 5 MG TAB PO SCH (10:47)
[2024-08-23] MEDS: AZITHROMYCIN 500MG/ 250ML 250 ML IV SCH (10:48)
[2024-08-23] MEDS: FUROSEMIDE 40 MG/4 ML VIAL IV SCH ×2 (10:48→16:45)
--- NOTE | 2024-08-23 11:55 | DVHPN2 ---
Reviewed: Care Plan, H&P, Labs, Medications, Previous Orders, Radiology Changes from previous H/P or p: No Changes ENT: No Ear pain, No Ear discharge, No Nose pain, No Nose discharge, No Nose congestion, No Mouth pain, No Mouth swelling, No Throat pain, No Throat swelling, No Other Cardiovascular: No Chest Pain, No Palpitations, No Orthopnea, No Paroxysmal Noc. Dyspnea, No Edema, No Lt Headedness, No Other Respiratory: No Cough, No Dry; Shortness of breath; No SOB with excertion, No Wheezing, No Hemoptysis, No Pleuritic Pain, No Sputum; Other (SOB at rest) Gastrointestinal: No Nausea, No Vomiting, No Abdominal Pain, No Diarrhea, No Constipation, No Melena, No Hematochezia, No Other Genitourinary: No Dysuria, No Frequency, No Incontinence, No Hematuria, No Retention, No Other Musculoskeletal: No other, No neck pain, No shoulder pain, No arm pain, No back pain, No hand pain, No leg pain, No foot pain Skin: No Rash, No Lesions, No Jaundice, No Bruising, No Other Objective Vitals Vital Signs Date Time Temp Pulse Resp B/P (MAP) Pulse Ox O2 Delivery O2 Flow Rate FiO2 08/23/24 10:48 118/87 08/23/24 10:46 90 08/23/24 09:10 97 Nasal Cannula* 4 36 08/23/24 08:05 98.1 20 98.1 General Appearance: Alert, Cooperative, No acute distress HEENT: Atraumatic, PERRLA, EOMI, Mucous membr. moist/pink Lungs: Clear to auscultation, Normal air movement Cardiovascular: Regular rate, Normal S1, Normal S2, No murmurs, Gallops, Rubs Abdomen: Normal bowel sounds, Soft, No tenderness Neuro: Cranial nerves 3-12 NL Psych/Mental Status: Mental status NL Medications Current Medications Medications Dose Ordered Sig/Aliya Route Start Time Stop Time Status Last Admin Dose Admin Albuterol 2.5 mg Q4HPRN PRN NEB 08/22/24 23:30 08/23/24 02:32 2.5 MG Azithromycin 250 ml @ 125 mls/hr DAILY IV 08/23/24 10:00 08/23/24 10:48 125 MLS/HR Ipratropium [place] 0.5 mg Q4HPRN PRN NEB 08/22/24 23:30 08/23/24 02:32 0.5 MG Aspirin 81 mg DAILY PO 08/23/24 10:00 08/23/24 10:46 81 MG Amlodipine Besylate 5 mg DAILY PO 08/23/24 10:00 08/23/24 10:47 5 MG Furosemide 40 mg DAILY IV 08/23/24 10:00 08/23/24 10:48 40 MG Hydralazine HCl 10 mg Q6HP PRN IV 08/22/24 23:30 Carvedilol 12.5 mg Q12HR PO 08/23/24 10:00 08/23/24 10:46 12.5 MG Diagnostic Test (Pha) 1 strip IQ4HR 08/23/24 00:00 08/23/24 08:00 1 STRIP Insulin Human Regular IQ4HR SC 08/23/24 00:00 08/23/24 09:27 2 UNITS Dextrose 50 ml UD PRN IV 08/22/24 23:30 Sodium Chloride 10 ml Q8HR IV 08/23/24 06:00 08/23/24 06:06 10 ML Acetaminophen/ Hydrocodone Bitart 1 tab Q4HP PRN PO 08/22/24 23:30 Ondansetron HCl 4 mg Q4HP PRN IV 08/22/24 23:30 Docusate Sodium 100 mg BIDPRN PRN PO 08/22/24 23:30 Acetaminophen 650 mg Q6HP PRN PO 08/22/24 23:30 Nitroglycerin 0.4 mg Q5MINP PRN SL 08/22/24 23:30 Morphine Sulfate 2 mg Q30M PRN IV 08/22/24 23:30 Ceftriaxone Sodium 50 ml @ 100 mls/hr DAILY@09 IV 08/23/24 09:00 08/23/24 09:26 100 MLS/HR Laboratory Results Laboratory Tests 08/23/24 03:50 Chemistry Test 08/22/24 20:51 08/23/24 03:50 Calcium Level 9.6 mg/dL (8.7-10.4) 9.9 mg/dL (8.7-10.4) Albumin 4.4 g/dL (3.2-4.8) Magnesium Level 1.8 mg/dL (1.6-2.6) Total Protein 6.9 g/dL (5.7-8.2) Lipid panel Test 08/23/24 03:50 Cholesterol Level 132 mg/dL (< 200) HDL Cholesterol 45 mg/dL (40-59) Triglycerides Level 159 mg/dL (< 150) H Cardiac Markers Test 08/22/24 20:51 B-Type Natriuretic Peptide 652.95 pg/mL (0-100) LFT Test 08/23/24 03:50 Alanine Aminotransferase (ALT) 22 U/L (7-40) Alkaline Phosphatase 56 U/L (46-116) Aspartate Amino Transferase (AST) 21 U/L (13-40) Total Bilirubin 1.4 mg/dL (0.2-1.0) H HgA1c, TSH Test 08/23/24 03:50 Hemoglobin A1c 5.9 % A1C (<5.7) H Thyroid Stimulating Hormone (TSH) 1.71 uIU/mL (0.55-4.78) Urinalysis Test 08/22/24 21:15 Urine Color Light-yellow (Yellow) Urine Clarity Clear (Clear) Urine pH 5.5 (5.0-9.0) Urine Specific [place] 1.014 (1.001-1.035) Urine Protein 1+ (Negative) H Urine Ketones Negative (Negative) Urine Blood Negative /uL (Negative) Urine Nitrite Negative (Negative) Urine Bilirubin Negative (Negative) Urine Urobilinogen Normal mg/dL (Negative) Urine Leukocyte Esterase Negative /uL (Negative) Urine RBC 1 /hpf (0 - 3) Urine Microscopic WBC 4 /HPF (0-3) H Urine Squamous Epithelial Cells Few /hpf (<5) Urine Bacteria None seen /hpf (None Seen) Urine Glucose Normal mg/dL (Normal) Labs and/or images reviewed: Labs reviewed by me Assessment/Plan Assessment/Plan Pneumonia, unspecified organism Acute renal injury Diabetes mellitus with hyperglycemia Elevated troponin Generalized weakness Hypertensive urgency Elevated lactic acid level Acute on chronic systolic (congestive) heart failure Gross hematuria Continuing current management. Continuing with IV antibiotic. Continuing with Lasix. We will change it to 40 mg IV b.i.d.. We will consulted Urology for his gross hematuria. I will send urine for culture Waiting for Cardiology to see the patient. This medical document was created using an electronic medical record system with [employer] direct computerized dictation system. Although this document has been carefully reviewed, there may still be some phonetic and typographical errors. These areas are purely typographical due to imperfections of the software programs, and do not reflect any compromise in the patient's medical care. Plan discussed with: Patient Date of Service: Aug 23, 2024 Billing Provider: SHERINE HERNÁNDEZ MD Common Visit Codes: [id number] INP/OBS CARE(HIGH) SHERINE HERNÁNDEZ MD Aug 23, 2024 11:55
--- NOTE | 2024-08-23 12:30 | ECG ---
[facility] Test Date: 2024-08-22 Test Time: 21:16:24 Pat Name: DIDI MANTILLA Department: ED Room: 0288T Gender: M [employer] Operator: LILIBETH : 1945 Requested By: CRISTI BERRIOS Order Number: [id number] Reading MD: Teodoro Taylor Measurements Intervals [place] Rate: 116 P: 64 VT: 176 QRS: 92 QRSD: 91 T: 25 QT: 320 QTc: 445 Interpretive Statements Sinus tachycardia Right axis deviation Minimal ST depression, lateral leads Electronically Signed On 08-24-2024 17:43:58 PDT by Teodoro Taylor Please click the below link to view image of tracing.
[2024-08-23] MEDS ORDERED: TETR1TAB2 PO (13:35)
--- NOTE | 2024-08-23 15:33 | DVHINCON2 ---
Date of service: Aug 23, 2024 Referring Physician Hospitalist Reason for Consultation Gross hematuria History of Present Illness 79-year-old male with past medical history of hypertension, TIA, hyperlipidemia, and diabetes mellitus who presented to [facility] with complaint of shortness of breaths. Patient reports symptoms progressively get worse with increased work of breathing, getting worse that prompted this visit. Patient was seen and evaluated in the ED, laboratory data shows WBC 8.6, platelets 152, sodium 136, potassium 4.4, BUN 19, creatinine 1.45, GFR 49, glucose 211, troponin 220, lactic acid 3.3 trending down to 1.8, BNP 652.95, blood pressure 187/119 trending down to 151/76, heart rate 112,, temperature 97.9 F, O2 saturation 97% oxygen. Chest x-ray revealing presence of pneumonia congestive failure. Patient was started on IV antibiotic regimen azithromycin, vancomycin, please see medication orders section in the computer. On my assessment, patient denies chest pain, no headache, no dizziness, no diaphoresis, currently on oxy gen, no nausea, no vomiting, no fever, no chills. Patient was admitted for further evaluation and medical management. Past Medical History DM, High Lipids, HTN, TIA Past Surgical History Denies all surgeries Family History: Alcoholism Cancer G8 SISTER Family history: Diabetes mellitus G8 MOTHER G8 FATHER G8 BROTHER Allergies: Coded Allergies: NO KNOWN ALLERGIES (Unverified , 03/09/14) Home Meds Reported Medications Tetrabenazine (Tetrabenazine) 12.5 Mg Tab, 12.5 MG PO BID, TAB 08/23/24 Lisinopril (Lisinopril) 20 Mg Tab, 1 TAB PO DAILY 08/22/23 Glipizide (Glipizide) 10 Mg Tab, 2 TAB PO BID 08/22/23 Pioglitazone Hydrochloride (PIOGLITAZONE HCL) 15 Mg Tab, 1 TAB PO DAILY 08/22/23 Metformin Hydrochloride (Metformin Hcl) 850 Mg Tab, 1 TAB PO TID 08/22/23 Pravastatin Sodium (PRAVACHOL TABLET) 20 Mg Tb, 20 MG PO DAILY 03/09/14 Lisinopril (ZESTRIL TABLET) 20 Mg Tb, 20 MG PO DAILY 03/09/14 Current Medications Current Medications Medications (Trade) Dose Ordered Sig/Aliya Route PRN Reason Start Time Stop Time Status Last Admin Albuterol (Ventolin Medneb) 2.5 mg Q4HPRN PRN NEB SHORTNESS OF BREATH 08/22/24 23:30 08/23/24 02:32 Azithromycin 250 ml @ 125 mls/hr DAILY IV 08/23/24 10:00 08/23/24 10:48 Ipratropium [place] (Atrovent Medneb) 0.5 mg Q4HPRN PRN NEB SHORTNESS OF BREATH 08/22/24 23:30 08/23/24 02:32 Aspirin 81 mg DAILY PO 08/23/24 10:00 08/23/24 10:46 Amlodipine Besylate (Norvasc Tablet) 5 mg DAILY PO 08/23/24 10:00 08/23/24 10:47 Furosemide (Lasix Injection) 40 mg DAILY IV 08/23/24 10:00 08/23/24 13:00 DC 08/23/24 10:48 Hydralazine HCl (Apresoline Injection) 10 mg Q6HP PRN IV SBP>150 08/22/24 23:30 Carvedilol (Coreg Tablet) 12.5 mg Q12HR PO 08/23/24 10:00 08/23/24 10:46 Diagnostic Test (Pha) (Accu-Chek Comfort Curve T) 1 strip IQ4HR 08/23/24 00:00 08/23/24 12:21 Insulin Human Regular (InsuLIN R) IQ4HR SC 08/23/24 00:00 08/23/24 12:18 Dextrose 50 ml UD PRN IV Blood Sugar LESS THAN 60 08/22/24 23:30 Sodium Chloride (Saline Lock Ns) 10 ml Q8HR IV 08/23/24 06:00 08/23/24 06:06 Acetaminophen/ Hydrocodone Bitart ([place] 5/325MG Tab) 1 tab Q4HP PRN PO MODERATE PAIN (4-6 PAIN SCALE) 08/22/24 23:30 Ondansetron HCl (Zofran) 4 mg Q4HP PRN IV NAUSEA / VOMITING 08/22/24 23:30 Docusate Sodium (Colace Capsule) 100 mg BIDPRN PRN PO FOR CONSTIPATION 08/22/24 23:30 Acetaminophen (Tylenol Tablet) 650 mg Q6HP PRN PO PAIN SCALE 1-3 OR TEMP>100.4 08/22/24 23:30 Nitroglycerin (Ntrostat Sublingual) 0.4 mg Q5MINP PRN SL FOR CHEST PAIN 08/22/24 23:30 Morphine Sulfate 2 mg Q30M PRN IV FOR CHEST PAIN 08/22/24 23:30 Ceftriaxone Sodium 50 ml @ 100 mls/hr DAILY@09 IV 08/23/24 09:00 08/23/24 09:26 Furosemide (Lasix Injection) 40 mg BIDD IV 08/23/24 18:00 Review of Systems Constitutional: Yes: Weakness; No: Fever, Chills, Sweats, Malaise, Other ENT: No: Ear pain, Ear discharge, Nose pain, Nose discharge, Nose congestion, Mouth pain, Mouth swelling, Throat pain, Throat swelling, Other Respiratory: Shortness of breath, Other (SOB at rest); No: Cough, Dry, SOB with excertion, Wheezing, Hemoptysis, Pleuritic Pain, Sputum, Wheezing Cardiovascular: No: Chest Pain, Palpitations, Orthopnea, Paroxysmal Noc. Dyspnea, Edema, Lt Headedness, Other Gastrointestinal: No: Nausea, Vomiting, Abdominal Pain, Diarrhea, Constipation, Melena, Hematochezia, Other Genitourinary: No Dysuria, No Frequency, No Incontinence, No Hematuria, No Retention, No Other Musculoskeletal: No: other, neck pain, shoulder pain, arm pain, back pain, hand pain, leg pain, foot pain Skin: No: Rash, Lesions, Jaundice, Bruising, Other Neurological: No: Weakness, Numbness, Incoordination, Change in speech, Confusion, Seizures, Other Allergies: Coded Allergies: NO KNOWN ALLERGIES (Unverified , 03/09/14) Vital Signs Vital Signs Date Time Temp Pulse Resp B/P (MAP) Pulse Ox O2 Delivery O2 Flow Rate FiO2 08/23/24 13:16 97.6 69 18 97/59 (72) 96 97.6 08/23/24 12:50 Nasal Cannula* 4 36 Physical Exam s Date Time Temp Pulse Resp B/P (MAP) Pulse Ox O2 Delivery O2 Flow Rate FiO2 08/22/24 21:30 97.9 111 20 151/76 (101) 95 97.9 08/22/24 20:55 Oxymizer 10 72 72 General Appearance: Alert, Oriented X3, Cooperative, No acute distress HEENT: Atraumatic, PERRLA, EOMI, Mucous membr. moist/pink Respiratory: Clear to auscultation, Normal air movement Cardiovascular: Regular rate, Normal S1, Normal S2, No murmurs Abdominal: Normal bowel sounds, Soft, No tenderness, No hepatospenomegaly, No masses Extremities: No clubbing, No cyanosis, No edema, Normal pulses, No tenderness/ swelling Skin: No rashes, No breakdown, No significant lesion Neuro: Normal speech, Normal tone, Sensation intact, Cranial nerves 3-12 NL, Reflexes 2+, Other (Generalized weakness) Psych/Mental Status: Mental status NL, Mood NL Labs/Diagnostic Data Labs Test 08/23/24 14:13 08/23/24 12:12 08/23/24 03:50 08/23/24 01:39 Range/Units Troponin I High Sensitivity 368 *H </=54 ng/L POC Glucose 145 H 70-106 mg/dl White Blood Count 11.4 #H 4.4-10.8 10^3/uL Red Blood Count 4.04 L 4.5-5.90 10^6/uL Hemoglobin 12.9 L 13.5-17.5 g/dL Hematocrit 36.9 L 41.0-53.0 % Mean Corpuscular Volume 91.4 80.0-100.0 fL Mean Corpuscular Hemoglobin 32.0 28.0-32.0 pg Mean Corpuscular Hemoglobin Concent 35.0 32.0-36.0 g/dL Red Cell Distribution Width 14.2 11.8-14.3 % Platelet Count 142 140-450 10^3/uL Mean Platelet Volume 8.2 6.9-10.8 fL Neutrophils (%) (Auto) 73.7 37.0-80.0 % Lymphocytes (%) (Auto) 16.6 10.0-50.0 % Monocytes (%) (Auto) 8.2 0.0-12.0 % Eosinophils (%) (Auto) 1.1 0.0-7.0 % Basophils (%) (Auto) 0.4 0.0-2.0 % Neutrophils # (Auto) 8.4 1.6-8.6 10 ^3/uL Lymphocytes # (Auto) 1.9 0.4-5.4 10 ^3/uL Monocytes # (Auto) 0.9 0-1.3 10 ^3/uL Eosinophils # (Auto) 0.1 0-0.8 10 ^3/uL Basophils # (Auto) 0 0-0.2 10 ^3/uL Nucleated Red Blood Cells 0.3 % Sodium Level 139 136-145 mmol/L Potassium Level 3.6 3.5-5.1 mmol/L Chloride Level 107 98-107 mmol/L Carbon Dioxide Level 20 20-31 mmol/L Anion Gap 12 5-15 Blood Urea Nitrogen 19 9-23 mg/dL Creatinine 1.26 0.700-1.30 mg/dL Glomerular Filtration Rate Calc 58 >90 mL/min BUN/Creatinine Ratio 15.1 10.0-20.0 Serum Glucose 110 #H 74-106 mg/dL Hemoglobin A1c 5.9 H <5.7 % A1C Calcium Level 9.9 8.7-10.4 mg/dL Magnesium Level 1.8 1.6-2.6 mg/dL Total Bilirubin 1.4 H 0.2-1.0 mg/dL Aspartate Amino Transferase (AST) 21 13-40 U/L Alanine Aminotransferase (ALT) 22 7-40 U/L Alkaline Phosphatase 56 46-116 U/L Total Protein 6.9 5.7-8.2 g/dL Albumin 4.4 3.2-4.8 g/dL Triglycerides Level 159 H < 150 mg/dL Cholesterol Level 132 < 200 mg/dL LDL Cholesterol 76 < 100 mg/dL HDL Cholesterol 45 40-59 mg/dL Thyroid Stimulating Hormone (TSH) 1.71 0.55-4.78 uIU/mL Lactic Acid Level 1.8 0.4-2.0 mmol/L Test 08/22/24 21:15 08/22/24 20:51 Range/Units Urine Color Light-yellow Yellow Urine Clarity Clear Clear Urine pH 5.5 5.0-9.0 Urine Specific [place] 1.014 1.001-1.035 Urine Protein 1+ H Negative Urine Ketones Negative Negative Urine Blood Negative Negative /uL Urine Nitrite Negative Negative Urine Bilirubin Negative Negative Urine Urobilinogen Normal Negative mg/dL Urine Leukocyte Esterase Negative Negative /uL Urine RBC 1 0 - 3 /hpf Urine Microscopic WBC 4 H 0-3 /HPF Urine Squamous Epithelial Cells Few <5 /hpf Urine Bacteria None seen None Seen /hpf Urine Glucose Normal Normal mg/dL B-Type Natriuretic Peptide 652.95 0-100 pg/mL Assessment Gross hematuria Nava catheter in place Plan/Recommendation CT Scan abd/pelvis NC PSA Urine culture Plan discussed with: Patient, Other FLORI LANE MD Aug 23, 2024 15:33
--- NOTE | 2024-08-23 18:08 | DVH ---
Exam: CT CT AB PEL WO CON-NO ORAL OR IV History: hematuria Comparison Study: None Technique: Multidetector spiral CT of the abdomen was performed from lung bases to pubic symphysis. I maging was performed without IV contrast. Axial, coronal and sagittal multiplanar reformats were obta ined from the axial data set by the technologist. Radiation Dose : 1. Abdomen/Pelvis: CTDIvol 9.2 mGy, DLP 495.69 mGy*cm. Findings: Evaluation of solid organs is limited due to lack of intravenous contrast use. Lung Bases: Small bilateral pleural effusions with adjacent atelectasis. Ground-glass opacities in th e visualized lung bases. Coronary artery calcifications. Liver: The liver is normal in size. No focal lesions. Gallbladder and Biliary Tree: Gallbladder not visualized. No biliary ductal dilatation. Spleen: Unremarkable Pancreas: The pancreas is grossly normal in appearance. Adrenal Glands: Unremarkable Kidneys: Bilateral renal cysts are noted measuring up to 5.6 cm. 1.2 cm intermediate density exophyti c lesion noted in the right kidney. No nephrolithiasis or hydronephrosis. Bladder: Diffuse bladder wall thickening is noted. The bladder is decompressed with Nava catheter. Bowel: Colonic diverticulosis. The bowel loops are nondilated. Normal appendix is visualized in the right lower quadrant without findings of appendicitis. Ascites: Absent Lymphadenopathy: No lymphadenopathy. Abdominal Wall and Mesentery: Unremarkable. Vasculature: Moderate atherosclerotic calcifications of the aorta and its branches. 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 Pelvic Organs: Unremarkable Musculoskeletal: No acute fractures or dislocation. 1.4 cm lytic lesion noted along the superior end plate of L5. IMPRESSION: 1. Diffuse bladder wall thickening, which could represent cystitis. 2. No nephrolithiasis or hydronephrosis. 3. 1.2 cm intermediate density exophytic lesion noted in the right kidney. Recommend contrast enhance d CT of the abdomen and pelvis (ideally renal protocol CT) for further evaluation. 4. 1.4 cm lytic lesion noted along the superior endplate of L5. This could represent endplate degener ative change, with other etiologies not excluded. MRI lumbar spine with contrast can provide further evaluation. 5. 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 6. Small bilateral pleural effusions. 7. Ground-glass opacities in the visualized lungs, could represent pneumonia and/or edema. Radiation optimization: All CT scans at this facility use at least one of these dose optimization tena hniques: automated exposure control mA and/or kV adjustment per patient size (includes targeted exam s where dose is matched to clinical indication) or iterative reconstruction.
[2024-08-23 18:44] LABS: Urine Bacteria None Seen /hpf (None Seen)
[2024-08-23 19:00] LABS: Urine Blood 3+ /uL (Negative); Urine Clarity Turbid (Clear); Urine Color Colorless (Yellow); Urine Mucus FEW (None Seen); Urine Protein, UAD 1+ (Negative); Urine Specific Gravity 1.005 (1.001-1.035); Urine Squamous Epithelial Cell None Seen /hpf (<5); Urine Urobilinogen Normal (Negative); Urine WBC 22 /HPF (0-3); Urine pH 5.5 (5.0-9.0)
--- NOTE | 2024-08-23 19:15 | DVHSR ---
APPROVED REPORT EXAM: Two-dimensional and M-mode echocardiogram with Doppler and color Doppler. Blood Pressure: 102/51 mmHg INDICATION CHF exacerbation, unspecified RISK FACTORS Height: 64, Weight: 138 DIMENSIONS LVDd (3.8-5.7cm)LA (2D)4.2 (1.9-4.0cm)Aortic Root4.0 (2.0-3.7cm) LVDs (2.5-4.0cm)LA (MM) (1.9-4.0cm)Aortic Cusp Exc1.7 (1.5-2.0cm) EF (%) 22.0 (55-70%)Rt. Atrium (1.9-4.0cm)Asc. Aorta cm Mitral Valve MitralMitral Stenosis E wave0.64m/sMV Mean GR.mmHg A wave0.88m/sMV Peak GR.98mmHg E/A ratio0.72D MVAcm2 DECEL [id number] 1/2 Syia87tg IVRTmsDop MVA2.80cm2 Aortic Valve Aortic ValveAortic Stenosis V10.74m/Jenn Mean GR.3mmHg V21.00m/Jenn Peak GR.4mmHg LVOT Diameter2.2 (1.8-2.4cm)Doppler AVA2.81cm2 AI P 1/2 Phlo611.07ms Pulmonic Valve V20.70m/s Tricuspid Valve TR Velocity2.48m/s [id number] Conclusion Sinus rhythm. Left atrial enlargement. Left ventricular enlargement. Enlarged aortic root. Sigmoid septum noted. Septal hypokinesis. Valves appear to be structurally normal. Mild mitral annular calcification. Left ventricular function is markedly diminished. EF is about 20% with severe global hypokinesis. T here appears to be a echolucent area within the mid interventricular septum best seen in the apical l argenis axis view and parasternal view. There appears to be a vacuole type of structure, a lucency surr ounded by a myocardial and an endocardial layer of higher echogenicity, it appears to be a semiluna r cystic lesion (as best can be described) within the anterior septal wall of the left ventricle. Th e surrounding myocardium is hypokinetic but not akinetic. The endocardial wall appears to have no mu scular layer. The short axis view suggests a discontinuity of the endocardium with what appears to b e slight aneurysmal formation within the myocardium along the anterior septal region. The mid and perla perficial layer of the myocardium is not dyskinetic. Clinical correlation recommended. Suggest SAM for further delineation. Mild aortic insufficiency with mild mitral regurgitation. Moderate tricuspid regurgitation. Trace p ulmonic insufficiency. No pericardial effusion masses or vegetations.
--- NOTE | 2024-08-23 20:40 | DVH ---
EXAM: CT HEAD WITHOUT CONTRAST INDICATION: fall protocol TECHNIQUE: CT of the head without intravenous contrast. Radiation Dose Information: CT Dose: CTDI volume is 58.5 mGy. Dose-length product is 1152.77 mGy*cm The dose indicators for CT are the volume Computed Tomography (CT) Dose Index (CTDIvol) and the Dose Length Product (DLP), and are measured in units of mGy and mGy-cm, respectively. These indicators are not patient dose, but values generated from the CT scanner acquisition factors. The report includes radiation exposure data for exposures received during this examination. COMPARISON: CT HEAD WITHOUT CONTRAST on DOS: 08/27/23, CT HEAD WITHOUT CONTRAST on DOS: 08/22/23 FINDINGS: There is no evidence of acute intracranial hemorrhage, extra-axial collection, mass effect, midline s hift, herniation or hydrocephalus. The ventricles, sulci and cisterns are age appropriate. The villarreal-white differentiation is intact. Patchy periventricular and subcortical white matter hypoattenuation is nonspecific but may be related to small vessel ischemic disease. The visualized paranasal sinuses and mastoid air cells are clear. The surrounding soft tissues and osseous structures are unremarkable. IMPRESSION: 1. No acute intracranial hemorrhage. 2. No CT findings of territorial ischemia. 3. No CT findings of displaced skull fracture.
[2024-08-24] VITALS (10 sets, daily range): BP systolic 96–127; BP diastolic 57–72; PULSE 69–85; RESP 17–21; TEMP 97.6–98.1; O2SAT 93–99
[2024-08-24 07:07] LABS: PSA Free 3.23 ng/mL
--- NOTE | 2024-08-24 10:36 | DVH ---
EXAM: US Retroperitoneal Limited, Renal CLINICAL INDICATION: 1.2 cm right renal lesion TECHNIQUE: Real-time limited ultrasound of the retroperitoneum with image documentation. COMPARISON: None FINDINGS: RIGHT KIDNEY: Right kidney measures up to 10.0 cm. Right renal cysts, largest measuring up to 7.6 cm. No stones. LEFT KIDNEY: Left kidney measures up to 10.5 cm. Left renal cysts, largest measuring up to 2.4 cm. No stones. OTHER FINDINGS: . . IMPRESSION: Bilateral renal cysts.
--- NOTE | 2024-08-24 12:37 | DVHPN2 ---
Progress Note - Dictate Date Seen: Aug 24, 2024 Has the PT tested + for MRSA If YES, has PT been informed?: No Medical Necessity Reason Pt with a Central, PICC or Fol: Yes The following are medically ne: Nava Catheter Medical Necessity Reason Gross hematuria Subjective I spoke with the patient and the at the bedside. He has never had any urological issues prior to this admission. He is a chronic smoker of at least one pack per day. Given this finding, I recommended a diagnostic cystoscopy once the urine clears vital signs Vital Sign Date Time Temp Pulse Resp B/P (MAP) Pulse Ox O2 Delivery O2 Flow Rate FiO2 08/24/24 11:30 83 109/69 08/24/24 09:00 97.9 21 98 97.9 08/24/24 08:10 Nasal Cannula* 4 36 Total Intake and Output 08/23/24 08/23/24 08/24/24 15:00 23:00 07:00 Intake Total 300 ml 400 ml 300 ml Output Total 1000 ml 500 ml 675 ml Balance -700 ml -100 ml -375 ml medications Current Medications Medications Dose Ordered Sig/Aliya Route Start Time Stop Time Status Last Admin Dose Admin Albuterol 2.5 mg Q4HPRN PRN NEB 08/22/24 23:30 08/23/24 02:32 2.5 MG Azithromycin 250 ml @ 125 mls/hr DAILY IV 08/23/24 10:00 08/24/24 10:58 125 MLS/HR Ipratropium [place] 0.5 mg Q4HPRN PRN NEB 08/22/24 23:30 08/23/24 02:32 0.5 MG Aspirin 81 mg DAILY PO 08/23/24 10:00 08/24/24 10:15 81 MG Amlodipine Besylate 5 mg DAILY PO 08/23/24 10:00 08/24/24 10:15 5 MG Hydralazine HCl 10 mg Q6HP PRN IV 08/22/24 23:30 Carvedilol 12.5 mg Q12HR PO 08/23/24 10:00 08/24/24 10:16 12.5 MG Diagnostic Test (Pha) 1 strip IQ4HR 08/23/24 00:00 08/24/24 12:09 1 STRIP Insulin Human Regular IQ4HR SC 08/23/24 00:00 08/24/24 08:30 3 UNITS Dextrose 50 ml UD PRN IV 08/22/24 23:30 Sodium Chloride 10 ml Q8HR IV 08/23/24 06:00 08/24/24 05:41 10 ML Acetaminophen/ Hydrocodone Bitart 1 tab Q4HP PRN PO 08/22/24 23:30 Ondansetron HCl 4 mg Q4HP PRN IV 08/22/24 23:30 Docusate Sodium 100 mg BIDPRN PRN PO 08/22/24 23:30 Acetaminophen 650 mg Q6HP PRN PO 08/22/24 23:30 Nitroglycerin 0.4 mg Q5MINP PRN SL 08/22/24 23:30 Morphine Sulfate 2 mg Q30M PRN IV 08/22/24 23:30 Ceftriaxone Sodium 50 ml @ 100 mls/hr DAILY@09 IV 08/23/24 09:00 08/24/24 10:00 100 MLS/HR Furosemide 40 mg BIDD IV 08/23/24 18:00 08/24/24 05:40 40 MG objective Nava catheter in place with heme tinged urine noted laboratory and microbiology Laboratory Tests 08/23/24 03:50 Test 08/23/24 03:50 Range/Units Serum Glucose 110 #H 74-106 mg/dL Problem List Urinary catheter with hematuria, possible traumatic versus malignancy in light of significant smoking history Assessment/Plan Gross hematuria Nava catheter in place Once cleared, catheter can be removed upon discharge and schedule patient for outpatient cystoscopy We will obtain urine for cytology PSA level Plan discussed with: Patient, Spouse FLORI LANE MD Aug 24, 2024 12:37
--- NOTE | 2024-08-24 14:06 | DVHPN2 ---
Subjective The patient is seen and examined at bedside. Complain of hematuria still. Reviewed: Care Plan, H&P, Labs, Medications, Previous Orders, Radiology Changes from previous H/P or p: No Changes ENT: No Ear pain, No Ear discharge, No Nose pain, No Nose discharge, No Nose congestion, No Mouth pain, No Mouth swelling, No Throat pain, No Throat swelling, No Other Cardiovascular: No Chest Pain, No Palpitations, No Orthopnea, No Paroxysmal Noc. Dyspnea, No Edema, No Lt Headedness, No Other Respiratory: No Cough, No Dry; Shortness of breath; No SOB with excertion, No Wheezing, No Hemoptysis, No Pleuritic Pain, No Sputum; Other (SOB at rest) Gastrointestinal: No Nausea, No Vomiting, No Abdominal Pain, No Diarrhea, No Constipation, No Melena, No Hematochezia, No Other Genitourinary: No Dysuria, No Frequency, No Incontinence, No Hematuria, No Retention, No Other Musculoskeletal: No other, No neck pain, No shoulder pain, No arm pain, No back pain, No hand pain, No leg pain, No foot pain Skin: No Rash, No Lesions, No Jaundice, No Bruising, No Other Objective Vitals Vital Signs Date Time Temp Pulse Resp B/P (MAP) Pulse Ox O2 Delivery O2 Flow Rate FiO2 08/24/24 11:30 83 109/69 08/24/24 09:00 97.9 21 98 97.9 08/24/24 08:10 Nasal Cannula* 4 36 Intake/Output Intake and Output 08/24/24 07:00 Intake Total 1000 ml Output Total 2175 ml Balance -1175 ml Intake Oral 700 ml IV Total 300 ml Output Urine Total 2175 ml General Appearance: Alert, Cooperative, No acute distress HEENT: Atraumatic, PERRLA, EOMI, Mucous membr. moist/pink Lungs: Clear to auscultation, Normal air movement Cardiovascular: Regular rate, Normal S1, Normal S2, No murmurs, Gallops, Rubs Abdomen: Normal bowel sounds, Soft, No tenderness Neuro: Cranial nerves 3-12 NL Psych/Mental Status: Mental status NL Medications Current Medications Medications Dose Ordered Sig/Aliya Route Start Time Stop Time Status Last Admin Dose Admin Albuterol 2.5 mg Q4HPRN PRN NEB 08/22/24 23:30 08/23/24 02:32 2.5 MG Azithromycin 250 ml @ 125 mls/hr DAILY IV 08/23/24 10:00 08/24/24 10:58 125 MLS/HR Ipratropium [place] 0.5 mg Q4HPRN PRN NEB 08/22/24 23:30 08/23/24 02:32 0.5 MG Aspirin 81 mg DAILY PO 08/23/24 10:00 08/24/24 10:15 81 MG Amlodipine Besylate 5 mg DAILY PO 08/23/24 10:00 08/24/24 10:15 5 MG Hydralazine HCl 10 mg Q6HP PRN IV 08/22/24 23:30 Carvedilol 12.5 mg Q12HR PO 08/23/24 10:00 08/24/24 10:16 12.5 MG Diagnostic Test (Pha) 1 strip IQ4HR 08/23/24 00:00 08/24/24 12:09 1 STRIP Insulin Human Regular IQ4HR SC 08/23/24 00:00 08/24/24 08:30 3 UNITS Dextrose 50 ml UD PRN IV 08/22/24 23:30 Sodium Chloride 10 ml Q8HR IV 08/23/24 06:00 08/24/24 13:38 10 ML Acetaminophen/ Hydrocodone Bitart 1 tab Q4HP PRN PO 08/22/24 23:30 Ondansetron HCl 4 mg Q4HP PRN IV 08/22/24 23:30 Docusate Sodium 100 mg BIDPRN PRN PO 08/22/24 23:30 Acetaminophen 650 mg Q6HP PRN PO 08/22/24 23:30 Nitroglycerin 0.4 mg Q5MINP PRN SL 08/22/24 23:30 Morphine Sulfate 2 mg Q30M PRN IV 08/22/24 23:30 Ceftriaxone Sodium 50 ml @ 100 mls/hr DAILY@09 IV 08/23/24 09:00 08/24/24 10:00 100 MLS/HR Furosemide 40 mg BIDD IV 08/23/24 18:00 08/24/24 05:40 40 MG Laboratory Results Laboratory Tests 08/23/24 03:50 Urinalysis Test 08/23/24 00:00 Urine Color Colorless (Yellow) Urine Clarity Turbid (Clear) H Urine pH 5.5 (5.0-9.0) Urine Specific [place] 1.005 (1.001-1.035) Urine Protein 1+ (Negative) H Urine Ketones Negative (Negative) Urine Blood 3+ /uL (Negative) H Urine Nitrite Negative (Negative) Urine Bilirubin Negative (Negative) Urine Urobilinogen Normal mg/dL (Negative) Urine Leukocyte Esterase Trace /uL (Negative) Urine RBC 1175 /hpf (0 - 3) Urine Microscopic WBC 22 /HPF (0-3) H Urine Squamous Epithelial Cells None seen /hpf (<5) Urine Bacteria None seen /hpf (None Seen) Urine Mucus Few (None Seen) Urine Glucose Normal mg/dL (Normal) Microbiology Microbiology Date/Time Source Procedure Growth Status 08/22/24 23:51 Blood Blood Culture - Preliminary NO GROWTH AFTER 24 HOURS OF INCUBATION. Resulted Labs and/or images reviewed: Labs reviewed by me Assessment/Plan Assessment/Plan Pneumonia, unspecified organism Acute renal injury Diabetes mellitus with hyperglycemia Elevated troponin Generalized weakness Hypertensive urgency Elevated lactic acid level Acute on chronic systolic (congestive) heart failure Gross hematuria Continuing current management. Continuing with IV antibiotic. Continuing with Lasix. We will change it to 40 mg IV b.i.d.. Urology input appreciated. Continuing to flush Nava. Hematuria improved. Cardiology input appreciated. This medical document was created using an electronic medical record system with [employer] direct computerized dictation system. Although this document has been carefully reviewed, there may still be some phonetic and typographical errors. These areas are purely typographical due to imperfections of the software programs, and do not reflect any compromise in the patient's medical care. Plan discussed with: Patient Date of Service: Aug 24, 2024 Billing Provider: SHERINE HERNÁNDEZ MD Common Visit Codes: [id number] INP/OBS CARE(HIGH) SHERINE HERNÁNDEZ MD Aug 24, 2024 14:06
--- NOTE | 2024-08-24 19:24 | DVHPN2 ---
Consult Progress Note Date Seen: Aug 24, 2024 Subjective Review of Systems: CVS:Normal, RESPIRATORY:Normal, NEURO:Normal Other Systems: Sitter at bedside given episodes of confusion and combativeness Objective vital signs Vital Sign Date Time Temp Pulse Resp B/P (MAP) Pulse Ox O2 Delivery O2 Flow Rate FiO2 08/24/24 17:27 112/71 08/24/24 17:00 97.8 69 17 96 97.8 08/24/24 08:10 Nasal Cannula* 4 36 Total Intake and Output 08/23/24 08/23/24 08/24/24 15:00 23:00 07:00 Intake Total 300 ml 400 ml 300 ml Output Total 1000 ml 500 ml 675 ml Balance -700 ml -100 ml -375 ml medications Current Medications Medications Dose Ordered Sig/Aliya Route Start Time Stop Time Status Last Admin Dose Admin Albuterol 2.5 mg Q4HPRN PRN NEB 08/22/24 23:30 08/23/24 02:32 2.5 MG Azithromycin 250 ml @ 125 mls/hr DAILY IV 08/23/24 10:00 08/24/24 10:58 125 MLS/HR Ipratropium [place] 0.5 mg Q4HPRN PRN NEB 08/22/24 23:30 08/23/24 02:32 0.5 MG Aspirin 81 mg DAILY PO 08/23/24 10:00 08/24/24 10:15 81 MG Amlodipine Besylate 5 mg DAILY PO 08/23/24 10:00 08/24/24 10:15 5 MG Hydralazine HCl 10 mg Q6HP PRN IV 08/22/24 23:30 Carvedilol 12.5 mg Q12HR PO 08/23/24 10:00 08/24/24 10:16 12.5 MG Diagnostic Test (Pha) 1 strip IQ4HR 08/23/24 00:00 08/24/24 15:45 1 STRIP Insulin Human Regular IQ4HR SC 08/23/24 00:00 08/24/24 15:52 2 UNITS Dextrose 50 ml UD PRN IV 08/22/24 23:30 Sodium Chloride 10 ml Q8HR IV 08/23/24 06:00 08/24/24 13:38 10 ML Acetaminophen/ Hydrocodone Bitart 1 tab Q4HP PRN PO 08/22/24 23:30 Ondansetron HCl 4 mg Q4HP PRN IV 08/22/24 23:30 Docusate Sodium 100 mg BIDPRN PRN PO 08/22/24 23:30 Acetaminophen 650 mg Q6HP PRN PO 08/22/24 23:30 Nitroglycerin 0.4 mg Q5MINP PRN SL 08/22/24 23:30 Morphine Sulfate 2 mg Q30M PRN IV 08/22/24 23:30 Ceftriaxone Sodium 50 ml @ 100 mls/hr DAILY@09 IV 08/23/24 09:00 08/24/24 10:00 100 MLS/HR Furosemide 40 mg BIDD IV 08/23/24 18:00 08/24/24 17:27 40 MG Examination: LUNGS:Normal, CVS:Normal (NSR), NEURO:Normal (A&O x3) laboratory and microbiology Laboratory Tests 08/23/24 03:50 Test 08/23/24 03:50 Range/Units Serum Glucose 110 #H 74-106 mg/dL Problem List/Assessment/Plan Problem List/Assessment/Plan Non ST-elevation myocardial infarction Rule out coronary artery disease Hypertensive urgency, resolved Type II diabetes mellitus Dyslipidemia ?Pneumonia Acute kidney injury, resolved Tobacco use Plan/Recommendation (Dr. Taylor) Transthoracic echocardiogram revealed an EF of 20% with severe global hypokinesis and suggestions for a transesophageal echocardiogram to further delineate abnormal structural findings (see echo report). Conversation held with patient who stated he does not want to proceed with any invasive cardiac work-up including a SAM given his advanced age. As the patient has had episodes of confusion it was attempted to communicate with next of kin/ Kyleigh Munoz over the phone. Unfortunately her Turkmen is limited and we were not able to explain if full detail cardiac findings and recommendations. States she will be here tomorrow. We will hold a conversation with patient and at bedside with the aid of a director veterinary to further delineate work-up. In the meantime, initiate GDMT for HFrEF and uptitrate as tolerated. Continue preload and afterload reduction, strict I&Os, daily weight, and fluid restriction. Initiate DVT/VTE prophylaxis. Further management per clinical course. Thank you for allowing us to care for this patient. Please call with any questions or concerns. This medical document was created using an electronic medical record system with voice recognition software and computerized dictation system. Although this document has been carefully reviewed, there might still be some phonetic and typographical errors. Occasional wrong-word or ``sound-alike substitutions may have occurred due to the inherent limitations of voice recognition software. These areas are purely typographical due to imperfections of the software programs and do not reflect any compromise in the patient's medical care. Please read the chart carefully and recognize, using context, where these substitutions have occurred. Plan discussed with: Patient, Spouse, Other Date of Service: Aug 24, 2024 Billing Provider: JOSE MACDONALD Cardiology Common Codes: [id number] HOSP CARE(High JOSE MACDONALD Aug 24, 2024 19:24
[2024-08-24] MEDS: CARVEDILOL 12.5 MG TAB PO SCH (21:32)
[2024-08-25] VITALS (11 sets, daily range): BP systolic 94–116; BP diastolic 56–78; PULSE 69–92; RESP 16–19; TEMP 97.4–98.3; O2SAT 94–98
[2024-08-25] MEDS: FUROSEMIDE 40 MG/4 ML VIAL IV SCH (05:52)
[2024-08-25 07:17] LABS: Basophils # (auto) 0 10 ^3/uL (0-0.2); Basophils % (auto) 0.6 % (0.0-2.0); Eosinophils # (auto) 0.3 10 ^3/uL (0-0.8); Eosinophils % (auto) 4.5 % (0.0-7.0); Hemoglobin 13.5 g/dL (13.5-17.5); Lymphocytes # (auto) 1.9 10 ^3/uL (0.4-5.4); Mean Corpuscular Hemoglobin 31.1 pg (28.0-32.0); Mean Corpuscular Hgb Conc. 33.6 g/dL (32.0-36.0); Mean Corpuscular Volume 92.6 fL (80.0-100.0); Monocytes # (auto) 0.6 10 ^3/uL (0-1.3); Monocytes % (auto) 7.5 % (0.0-12.0); Neutrophils # (auto) 4.7 10 ^3/uL (1.6-8.6); Neutrophils % (auto) 62.4 % (37.0-80.0); Nucleated Red Blood Cells % 0.1 %; Platelet Count (auto) 150 10^3/uL (140-450); Red Blood Cells 4.32 10^6/uL (4.5-5.90); Red Cell Distribution Width 14.3 % (11.8-14.3); White Blood Cell 7.6 10^3/uL (4.4-10.8)
[2024-08-25 07:29] LABS: Chloride 102 mmol/L (98-107); Potassium 3.5 mmol/L (3.5-5.1); Sodium 138 mmol/L (136-145)
[2024-08-25 07:30] LABS: Anion Gap 11 (5-15); Carbon Dioxide 25 mmol/L (20-31)
[2024-08-25 07:31] LABS: Calcium 9.7 mg/dL (8.7-10.4)
[2024-08-25 07:47] LABS: Blood Urea Nitrogen 40 mg/dL (9-23); Glucose 132 mg/dL (74-106)
--- NOTE | 2024-08-25 08:05 | DVH ---
XY CHEST PORTABLE, HISTORY: CHF COMPARISON: XY CHEST PORTABLE on DOS: 08/22/24 XY CHEST PORTABLE on DOS: 08/22/24 TECHNICAL DATA: 1 view of the chest was obtained. FINDINGS: Lines and tubes: None Cardiomediastinal silhouette: enlarged Pulmonary vasculature: promiennt Lung expansion: normal Lung airspace: normal Lung interstitium: normal Pleura: normal Pneumothorax: no Bones: Unremarkable Other: no IMPRESSION: Cardiomegaly with pulmonary vascular congestion.
[2024-08-25] MEDS: ENOXAPARIN SOD 30 MG/0.3 ML SYRINGE SC SCH (09:35)
[2024-08-25] MEDS: EMPAGLIFLOZIN 10 MG TAB PO SCH (09:35)
[2024-08-25] MEDS: SPIRONOLACTONE 25 MG TAB PO SCH (09:36)
[2024-08-25] MEDS: VALSARTAN 80 MG TAB PO SCH (09:36)
[2024-08-25] MEDS: SODIUM CHLORIDE 0.9% 250 ML IV ONE (11:45)
--- NOTE | 2024-08-25 13:25 | DVHPN2 ---
Consult Progress Note Subjective Other Systems: Patient in normal sinus rhythm on statistical secretary. No cardiac complaints at time of assessment. is at bedside Objective vital signs Vital Sign Date Time Temp Pulse Resp B/P (MAP) Pulse Ox O2 Delivery O2 Flow Rate FiO2 08/25/24 10:36 70 94/51 08/25/24 08:36 98.1 18 95 98.1 08/25/24 08:15 Nasal Cannula* 4 36 Total Intake and Output 08/24/24 08/24/24 08/25/24 15:00 23:00 07:00 Intake Total 300 ml 800 ml 1225 ml Output Total 650 ml 1350 ml Balance 300 ml 150 ml -125 ml medications Current Medications Medications Dose Ordered Sig/Aliya Route Start Time Stop Time Status Last Admin Dose Admin Albuterol 2.5 mg Q4HPRN PRN NEB 08/22/24 23:30 08/23/24 02:32 2.5 MG Azithromycin 250 ml @ 125 mls/hr DAILY IV 08/23/24 10:00 08/25/24 09:37 125 MLS/HR Ipratropium [place] 0.5 mg Q4HPRN PRN NEB 08/22/24 23:30 08/23/24 02:32 0.5 MG Aspirin 81 mg DAILY PO 08/23/24 10:00 08/25/24 09:37 81 MG Hydralazine HCl 10 mg Q6HP PRN IV 08/22/24 23:30 Diagnostic Test (Pha) 1 strip IQ4HR 08/23/24 00:00 08/25/24 11:48 1 STRIP Insulin Human Regular IQ4HR SC 08/23/24 00:00 08/25/24 12:27 2 UNITS Dextrose 50 ml UD PRN IV 08/22/24 23:30 Sodium Chloride 10 ml Q8HR IV 08/23/24 06:00 08/25/24 05:52 10 ML Acetaminophen/ Hydrocodone Bitart 1 tab Q4HP PRN PO 08/22/24 23:30 Ondansetron HCl 4 mg Q4HP PRN IV 08/22/24 23:30 Docusate Sodium 100 mg BIDPRN PRN PO 08/22/24 23:30 Acetaminophen 650 mg Q6HP PRN PO 08/22/24 23:30 Nitroglycerin 0.4 mg Q5MINP PRN SL 08/22/24 23:30 Morphine Sulfate 2 mg Q30M PRN IV 08/22/24 23:30 Ceftriaxone Sodium 50 ml @ 100 mls/hr DAILY@09 IV 08/23/24 09:00 08/25/24 07:58 100 MLS/HR Carvedilol 6.25 mg Q12HR PO 08/24/24 22:00 08/25/24 09:36 6.25 MG Furosemide 20 mg BIDD IV 08/25/24 06:00 08/25/24 05:52 20 MG Spironolactone 12.5 mg DAILY PO 08/25/24 10:00 08/25/24 09:36 12.5 MG Valsartan 40 mg DAILY PO 08/25/24 10:00 08/25/24 09:36 40 MG Empaglifozin 10 mg DAILY PO 08/25/24 10:00 08/25/24 09:35 10 MG Enoxaparin Sodium 30 mg DAILY SC 08/25/24 10:00 08/25/24 09:35 30 MG Examination: GENERAL:Abnormal (Generalized weakness), LUNGS:Normal, CVS:Normal, NEURO:Normal laboratory and microbiology Laboratory Tests 08/25/24 05:55 Test 08/25/24 05:55 Range/Units Serum Glucose 132 H 74-106 mg/dL Problem List/Assessment/Plan Problem List/Assessment/Plan Non ST-elevation myocardial infarction Rule out coronary artery disease Hypertensive urgency, resolved Type II diabetes mellitus Dyslipidemia ?Pneumonia Acute kidney injury, resolved Tobacco use Plan/Recommendation (Dr. Taylor) Transthoracic echocardiogram revealed an EF of 20% with severe global hypokinesis the suggestions for a transesophageal echocardiogram to further delineate abnormal structural findings (see echo report). English principal network engineer was used to speak with the patient and his at bedside regarding recommended transesophageal echocardiogram. At this time, the patient was refusing. The patient states that given his age, he does not want to proceed with any kind of invasive cardiac workup. Continue guideline directed medical therapy for CHF, continue preload and afterload reduction, strict intake and output, daily weights, and maintaining fluid restriction. Thank you for allowing us to care for this patient. Please call with any questions or concerns. This medical document was created using an electronic medical record system with voice recognition software and computerized dictation system. Although this document has been carefully reviewed, there might still be some phonetic and typographical errors. Occasional wrong-word or ``sound-alike substitutions may have occurred due to the inherent limitations of voice recognition software. These areas are purely typographical due to imperfections of the software programs and do not reflect any compromise in the patient's medical care. Please read the chart carefully and recognize, using context, where these substitutions have occurred. Plan discussed with: Patient, Spouse Dietary Evaluation Review Comments: 1) Add cardiac restriction to 60g CCHO diet 2) Encourage optimal beverage intake. Continue IV hydration. 3) F/u with cardiology and nephrology 4) Continue to monitor I&O, labs, and skin integrity Expected Outcomes/Goals: 1) appetite and labs to improve 2) f/u in 3-5 days Date of Service: Aug 25, 2024 Billing Provider: ULI RIVERA Common Visit Codes: [id number] INP/OBS CARE(HIGH) ULI RIVERA Aug 25, 2024 13:25
--- NOTE | 2024-08-25 21:11 | DVHPN2 ---
Progress Note - Dictate Date Seen: Aug 25, 2024 Has the PT tested + for MRSA If YES, has PT been informed?: No Medical Necessity Reason Pt with a Central, PICC or Fol: Yes The following are medically ne: Nava Catheter Medical Necessity Reason Gross hematuria Subjective Sleeping soundly with sitter at bedside. vital signs Vital Sign Date Time Temp Pulse Resp B/P (MAP) Pulse Ox O2 Delivery O2 Flow Rate FiO2 08/25/24 17:46 94/66 08/25/24 16:35 97.8 92 18 98 97.8 08/25/24 09:28 Nasal Cannula* 3 32 Total Intake and Output 08/24/24 08/24/24 08/25/24 15:00 23:00 07:00 Intake Total 300 ml 800 ml 1225 ml Output Total 650 ml 1350 ml Balance 300 ml 150 ml -125 ml medications Current Medications Medications Dose Ordered Sig/Aliya Route Start Time Stop Time Status Last Admin Dose Admin Albuterol 2.5 mg Q4HPRN PRN NEB 08/22/24 23:30 08/23/24 02:32 2.5 MG Azithromycin 250 ml @ 125 mls/hr DAILY IV 08/23/24 10:00 08/25/24 09:37 125 MLS/HR Ipratropium [place] 0.5 mg Q4HPRN PRN NEB 08/22/24 23:30 08/23/24 02:32 0.5 MG Aspirin 81 mg DAILY PO 08/23/24 10:00 08/25/24 09:37 81 MG Hydralazine HCl 10 mg Q6HP PRN IV 08/22/24 23:30 Diagnostic Test (Pha) 1 strip IQ4HR 08/23/24 00:00 08/25/24 16:03 1 STRIP Insulin Human Regular IQ4HR SC 08/23/24 00:00 08/25/24 16:13 2 UNITS Dextrose 50 ml UD PRN IV 08/22/24 23:30 Sodium Chloride 10 ml Q8HR IV 08/23/24 06:00 08/25/24 14:00 10 ML Acetaminophen/ Hydrocodone Bitart 1 tab Q4HP PRN PO 08/22/24 23:30 Ondansetron HCl 4 mg Q4HP PRN IV 08/22/24 23:30 Docusate Sodium 100 mg BIDPRN PRN PO 08/22/24 23:30 Acetaminophen 650 mg Q6HP PRN PO 08/22/24 23:30 Nitroglycerin 0.4 mg Q5MINP PRN SL 08/22/24 23:30 Morphine Sulfate 2 mg Q30M PRN IV 08/22/24 23:30 Ceftriaxone Sodium 50 ml @ 100 mls/hr DAILY@09 IV 08/23/24 09:00 08/25/24 07:58 100 MLS/HR Carvedilol 6.25 mg Q12HR PO 08/24/24 22:00 08/25/24 09:36 6.25 MG Furosemide 20 mg BIDD IV 08/25/24 06:00 08/25/24 05:52 20 MG Spironolactone 12.5 mg DAILY PO 08/25/24 10:00 08/25/24 09:36 12.5 MG Valsartan 40 mg DAILY PO 08/25/24 10:00 08/25/24 09:36 40 MG Empaglifozin 10 mg DAILY PO 08/25/24 10:00 08/25/24 09:35 10 MG Enoxaparin Sodium 30 mg DAILY SC 08/25/24 10:00 08/25/24 09:35 30 MG objective Nava catheter in place with heme tinged urine noted getting clearer laboratory and microbiology Laboratory Tests 08/25/24 05:55 Test 08/25/24 05:55 Range/Units Serum Glucose 132 H 74-106 mg/dL Problem List Urinary catheter with hematuria, possible traumatic versus malignancy in light of significant smoking history Assessment/Plan Gross hematuria Nava catheter in place Once cleared, catheter can be removed upon discharge and schedule patient for outpatient cystoscopy We will obtain urine for cytology PSA level Dietary Evaluation Review Comments: 1) Add cardiac restriction to 60g CCHO diet 2) Encourage optimal beverage intake. Continue IV hydration. 3) F/u with cardiology and nephrology 4) Continue to monitor I&O, labs, and skin integrity Expected Outcomes/Goals: 1) appetite and labs to improve 2) f/u in 3-5 days Plan discussed with: FLORI Keller MD Aug 25, 2024 21:11
--- NOTE | 2024-08-25 23:10 | DVHPN2 ---
Subjective The patient is seen and examined at bedside. No complaint today. Patient said his shortness for breath improved. Hematuria improved. Reviewed: Care Plan, H&P, Labs, Medications, Previous Orders, Radiology Changes from previous H/P or p: No Changes ENT: No Ear pain, No Ear discharge, No Nose pain, No Nose discharge, No Nose congestion, No Mouth pain, No Mouth swelling, No Throat pain, No Throat swelling, No Other Cardiovascular: No Chest Pain, No Palpitations, No Orthopnea, No Paroxysmal Noc. Dyspnea, No Edema, No Lt Headedness, No Other Respiratory: No Cough, No Dry; Shortness of breath; No SOB with excertion, No Wheezing, No Hemoptysis, No Pleuritic Pain, No Sputum; Other (SOB at rest) Gastrointestinal: No Nausea, No Vomiting, No Abdominal Pain, No Diarrhea, No Constipation, No Melena, No Hematochezia, No Other Genitourinary: No Dysuria, No Frequency, No Incontinence, No Hematuria, No Retention, No Other Musculoskeletal: No other, No neck pain, No shoulder pain, No arm pain, No back pain, No hand pain, No leg pain, No foot pain Skin: No Rash, No Lesions, No Jaundice, No Bruising, No Other Objective Vitals Vital Signs Date Time Temp Pulse Resp B/P (MAP) Pulse Ox O2 Delivery O2 Flow Rate FiO2 08/25/24 21:18 98 Nasal Cannula 2.0 08/25/24 21:18 28 08/25/24 21:13 85 92/68 08/25/24 21:00 98.3 17 98.3 Intake/Output Intake and Output 08/25/24 07:00 Intake Total 2325 ml Output Total 2000 ml Balance 325 ml Intake Oral 2025 ml IV Total 300 ml Output Urine Total 2000 ml General Appearance: Alert, Cooperative, No acute distress HEENT: Atraumatic, PERRLA, EOMI, Mucous membr. moist/pink Lungs: Clear to auscultation, Normal air movement Cardiovascular: Regular rate, Normal S1, Normal S2, No murmurs, Gallops, Rubs Abdomen: Normal bowel sounds, Soft, No tenderness Neuro: Cranial nerves 3-12 NL Psych/Mental Status: Mental status NL Medications Current Medications Medications Dose Ordered Sig/Aliya Route Start Time Stop Time Status Last Admin Dose Admin Albuterol 2.5 mg Q4HPRN PRN NEB 3/20/25 23:30 08/23/24 02:32 2.5 MG Azithromycin 250 ml @ 125 mls/hr DAILY IV 08/23/24 10:00 08/25/24 09:37 125 MLS/HR Ipratropium [place] 0.5 mg Q4HPRN PRN NEB 08/22/24 23:30 08/23/24 02:32 0.5 MG Aspirin 81 mg DAILY PO 08/23/24 10:00 08/25/24 09:37 81 MG Hydralazine HCl 10 mg Q6HP PRN IV 08/22/24 23:30 Diagnostic Test (Pha) 1 strip IQ4HR 08/23/24 00:00 08/25/24 21:16 1 STRIP Insulin Human Regular IQ4HR SC 08/23/24 00:00 08/25/24 16:13 2 UNITS Dextrose 50 ml UD PRN IV 08/22/24 23:30 Sodium Chloride 10 ml Q8HR IV 08/23/24 06:00 08/25/24 21:15 10 ML Acetaminophen/ Hydrocodone Bitart 1 tab Q4HP PRN PO 08/22/24 23:30 Ondansetron HCl 4 mg Q4HP PRN IV 08/22/24 23:30 Docusate Sodium 100 mg BIDPRN PRN PO 08/22/24 23:30 Acetaminophen 650 mg Q6HP PRN PO 08/22/24 23:30 Nitroglycerin 0.4 mg Q5MINP PRN SL 08/22/24 23:30 Morphine Sulfate 2 mg Q30M PRN IV 08/22/24 23:30 Ceftriaxone Sodium 50 ml @ 100 mls/hr DAILY@09 IV 08/23/24 09:00 08/25/24 07:58 100 MLS/HR Carvedilol 6.25 mg Q12HR PO 08/24/24 22:00 08/25/24 09:36 6.25 MG Furosemide 20 mg BIDD IV 08/25/24 06:00 08/25/24 05:52 20 MG Spironolactone 12.5 mg DAILY PO 08/25/24 10:00 08/25/24 09:36 12.5 MG Valsartan 40 mg DAILY PO 08/25/24 10:00 08/25/24 09:36 40 MG Empaglifozin 10 mg DAILY PO 08/25/24 10:00 08/25/24 09:35 10 MG Enoxaparin Sodium 30 mg DAILY SC 08/25/24 10:00 08/25/24 09:35 30 MG Laboratory Results Laboratory Tests 08/25/24 05:55 Chemistry Test 08/25/24 05:55 Calcium Level 9.7 mg/dL (8.7-10.4) Cardiac Markers Test 08/25/24 05:55 B-Type Natriuretic Peptide 210.88 pg/mL (0-100) Urinalysis Test 08/23/24 00:00 Urine Color Colorless (Yellow) Urine Clarity Turbid (Clear) H Urine pH 5.5 (5.0-9.0) Urine Specific [place] 1.005 (1.001-1.035) Urine Protein 1+ (Negative) H Urine Ketones Negative (Negative) Urine Blood 3+ /uL (Negative) H Urine Nitrite Negative (Negative) Urine Bilirubin Negative (Negative) Urine Urobilinogen Normal mg/dL (Negative) Urine Leukocyte Esterase Trace /uL (Negative) Urine RBC 1175 /hpf (0 - 3) Urine Microscopic WBC 22 /HPF (0-3) H Urine Squamous Epithelial Cells None seen /hpf (<5) Urine Bacteria None seen /hpf (None Seen) Urine Mucus Few (None Seen) Urine Glucose Normal mg/dL (Normal) Microbiology Microbiology Date/Time Source Procedure Growth Status 08/22/24 23:51 Blood Blood Culture - Preliminary NO GROWTH AFTER 48 HOURS OF INCUBATION. Resulted Labs and/or images reviewed: Labs reviewed by me Assessment/Plan Assessment/Plan Pneumonia, unspecified organism Acute renal injury Diabetes mellitus with hyperglycemia Elevated troponin Generalized weakness Hypertensive urgency Elevated lactic acid level Acute on chronic systolic (congestive) heart failure Gross hematuria Continuing current management. Continuing with IV antibiotic. Continuing with Lasix. We will change it to 40 mg IV b.i.d.. Urology input appreciated Cardiology input appreciated This medical document was created using an electronic medical record system with [employer] direct computerized dictation system. Although this document has been carefully reviewed, there may still be some phonetic and typographical errors. These areas are purely typographical due to imperfections of the software programs, and do not reflect any compromise in the patient's medical care. Plan discussed with: Patient Date of Service: Aug 25, 2024 Billing Provider: SHERINE HERNÁNDEZ MD Common Visit Codes: [id number] INP/OBS CARE(HIGH) SHERINE HERNÁNDEZ MD Aug 25, 2024 23:10
[2024-08-26] VITALS (9 sets, daily range): BP systolic 92–132; BP diastolic 68–75; PULSE 59–86; RESP 16–19; TEMP 97.9–98.1; O2SAT 96–99
[2024-08-26 11:26] LABS: Chloride 104 mmol/L (98-107); Potassium 3.8 mmol/L (3.5-5.1); Sodium 141 mmol/L (136-145)
[2024-08-26 11:28] LABS: Anion Gap 9 (5-15); Calcium 9.8 mg/dL (8.7-10.4); Carbon Dioxide 28 mmol/L (20-31)
[2024-08-26 11:32] LABS: Basophils # (auto) 0 10 ^3/uL (0-0.2); Basophils % (auto) 0.6 % (0.0-2.0); Eosinophils # (auto) 0.3 10 ^3/uL (0-0.8); Hematocrit 39.5 % (41.0-53.0); Hemoglobin 13.5 g/dL (13.5-17.5); Lymphocytes # (auto) 1.3 10 ^3/uL (0.4-5.4); Lymphocytes % (auto) 20.6 % (10.0-50.0); Mean Corpuscular Hemoglobin 31.6 pg (28.0-32.0); Mean Corpuscular Hgb Conc. 34.2 g/dL (32.0-36.0); Mean Corpuscular Volume 92.4 fL (80.0-100.0); Monocytes # (auto) 0.5 10 ^3/uL (0-1.3); Monocytes % (auto) 7.5 % (0.0-12.0); Neutrophils % (auto) 66.3 % (37.0-80.0); Nucleated Red Blood Cells % 0.1 %; Platelet Count (auto) 157 10^3/uL (140-450); Red Blood Cells 4.27 10^6/uL (4.5-5.90); Red Cell Distribution Width 14.3 % (11.8-14.3); White Blood Cell 6.1 10^3/uL (4.4-10.8)
[2024-08-26 11:33] LABS: BUN/Creatinine Ratio 26.8 (10.0-20.0)
[2024-08-26 11:42] LABS: Blood Urea Nitrogen 42 mg/dL (9-23); Glucose 223 mg/dL (74-106)
--- NOTE | 2024-08-26 12:54 | DVHPN2 ---
Consult Progress Note Subjective Other Systems: Patient was in normal sinus rhythm on residential monitor. Denies any cardiac symptoms at time of assessment Objective vital signs Vital Sign Date Time Temp Pulse Resp B/P (MAP) Pulse Ox O2 Delivery O2 Flow Rate FiO2 08/26/24 11:36 96 Nasal Cannula* 1 24 08/26/24 09:55 133/78 08/26/24 09:55 81 08/26/24 08:18 97.9 19 97.9 Total Intake and Output 08/25/24 08/25/24 08/26/24 15:00 23:00 07:00 Intake Total 550 ml 1200 ml 950 ml Output Total 850 ml 1500 ml Balance 550 ml 350 ml -550 ml medications Current Medications Medications Dose Ordered Sig/Aliya Route Start Time Stop Time Status Last Admin Dose Admin Albuterol 2.5 mg Q4HPRN PRN NEB 08/22/24 23:30 08/23/24 02:32 2.5 MG Azithromycin 250 ml @ 125 mls/hr DAILY IV 08/23/24 10:00 08/26/24 09:54 125 MLS/HR Ipratropium [place] 0.5 mg Q4HPRN PRN NEB 08/22/24 23:30 08/23/24 02:32 0.5 MG Aspirin 81 mg DAILY PO 08/23/24 10:00 08/26/24 09:56 81 MG Hydralazine HCl 10 mg Q6HP PRN IV 08/22/24 23:30 Diagnostic Test (Pha) 1 strip IQ4HR 08/23/24 00:00 08/26/24 08:00 1 STRIP Insulin Human Regular IQ4HR SC 08/23/24 00:00 08/26/24 04:21 2 UNITS Dextrose 50 ml UD PRN IV 08/22/24 23:30 Sodium Chloride 10 ml Q8HR IV 08/23/24 06:00 08/26/24 06:19 10 ML Acetaminophen/ Hydrocodone Bitart 1 tab Q4HP PRN PO 08/22/24 23:30 Ondansetron HCl 4 mg Q4HP PRN IV 08/22/24 23:30 Docusate Sodium 100 mg BIDPRN PRN PO 08/22/24 23:30 Acetaminophen 650 mg Q6HP PRN PO 08/22/24 23:30 Nitroglycerin 0.4 mg Q5MINP PRN SL 08/22/24 23:30 Morphine Sulfate 2 mg Q30M PRN IV 08/22/24 23:30 Ceftriaxone Sodium 50 ml @ 100 mls/hr DAILY@09 IV 08/23/24 09:00 08/26/24 09:54 100 MLS/HR Carvedilol 6.25 mg Q12HR PO 08/24/24 22:00 08/26/24 09:55 6.25 MG Furosemide 20 mg BIDD IV 08/25/24 06:00 08/26/24 06:20 20 MG Spironolactone 12.5 mg DAILY PO 08/25/24 10:00 08/26/24 09:56 12.5 MG Valsartan 40 mg DAILY PO 08/25/24 10:00 08/26/24 09:55 40 MG Empaglifozin 10 mg DAILY PO 08/25/24 10:00 08/26/24 09:56 10 MG Enoxaparin Sodium 30 mg DAILY SC 08/25/24 10:00 08/26/24 09:54 30 MG Examination: GENERAL:Abnormal (Generalized weakness), LUNGS:Normal, CVS:Normal, NEURO:Normal laboratory and microbiology Laboratory Tests 08/26/24 10:59 Test 08/26/24 10:59 Range/Units Serum Glucose 223 H 74-106 mg/dL Problem List/Assessment/Plan Problem List/Assessment/Plan Non ST-elevation myocardial infarction Rule out coronary artery disease Hypertensive urgency, resolved Type II diabetes mellitus Dyslipidemia ?Pneumonia Acute kidney injury, resolved Tobacco use Plan/Recommendation (Dr. Taylor) Transthoracic echocardiogram revealed an EF of 20% with severe global hypokinesis and suggestions for a transesophageal echocardiogram to further delineate the numerous abnormal structural findings (see echo report). [place] public welfare director was used to speak with the patient and his at bedside regarding recommended transesophageal echocardiogram. Initially, the patient refused the procedure. The patient has changed his mind and decided that he does want to do the SAM. and patient's son at bedside at this time to confirm that the patient would like further workup at this time. We will schedule the patient to undergo a transesophageal echocardiogram on 08/28/2024. Continue guideline directed medical therapy for CHF, continue preload and afterload reduction, strict intake and output, daily weights, and maintaining fluid restriction. Thank you for allowing us to care for this patient. Please call with any questions or concerns. This medical document was created using an electronic medical record system with voice recognition software and computerized dictation system. Although this document has been carefully reviewed, there might still be some phonetic and typographical errors. Occasional wrong-word or ``sound-alike substitutions may have occurred due to the inherent limitations of voice recognition software. These areas are purely typographical due to imperfections of the software programs and do not reflect any compromise in the patient's medical care. Please read the chart carefully and recognize, using context, where these substitutions have occurred. Plan discussed with: Patient, Spouse, Son Dietary Evaluation Review Comments: 1) Add cardiac restriction to 60g CCHO diet 2) Encourage optimal beverage intake. Continue IV hydration. 3) F/u with cardiology and nephrology 4) Continue to monitor I&O, labs, and skin integrity Expected Outcomes/Goals: 1) appetite and labs to improve 2) f/u in 3-5 days Date of Service: Aug 26, 2024 Billing Provider: ULI RIVERA Common Visit Codes: [id number] INP/OBS CARE(HIGH) ULI RIVERA Aug 26, 2024 12:53
--- NOTE | 2024-08-26 15:42 | DVHPN2 ---
Subjective Patient continues to have cough and some dyspnea. Reviewed: Care Plan, H&P, Labs, Medications, Previous Orders, Radiology Changes from previous H/P or p: No Changes ENT: No Ear pain, No Ear discharge, No Nose pain, No Nose discharge, No Nose congestion, No Mouth pain, No Mouth swelling, No Throat pain, No Throat swelling, No Other Cardiovascular: No Chest Pain, No Palpitations, No Orthopnea, No Paroxysmal Noc. Dyspnea, No Edema, No Lt Headedness, No Other Respiratory: No Cough, No Dry; Shortness of breath; No SOB with excertion, No Wheezing, No Hemoptysis, No Pleuritic Pain, No Sputum; Other (SOB at rest) Gastrointestinal: No Nausea, No Vomiting, No Abdominal Pain, No Diarrhea, No Constipation, No Melena, No Hematochezia, No Other Genitourinary: No Dysuria, No Frequency, No Incontinence, No Hematuria, No Retention, No Other Musculoskeletal: No other, No neck pain, No shoulder pain, No arm pain, No back pain, No hand pain, No leg pain, No foot pain Skin: No Rash, No Lesions, No Jaundice, No Bruising, No Other Objective Vitals Vital Signs Date Time Temp Pulse Resp B/P (MAP) Pulse Ox O2 Delivery O2 Flow Rate FiO2 08/26/24 11:36 96 Nasal Cannula* 1 24 08/26/24 10:55 86 105/80 08/26/24 08:18 97.9 19 97.9 Intake/Output Intake and Output 08/26/24 07:00 Intake Total 2700 ml Output Total 2350 ml Balance 350 ml Intake Oral 2150 ml IV Total 550 ml Output Urine Total 2350 ml General Appearance: Alert, Oriented X3, Cooperative, No acute distress HEENT: Atraumatic, PERRLA, EOMI, Mucous membr. moist/pink Lungs: Clear to auscultation, Normal air movement Cardiovascular: Regular rate, Normal S1, Normal S2, No murmurs, Gallops, Rubs Abdomen: Normal bowel sounds, Soft, No tenderness Neuro: Cranial nerves 3-12 NL Psych/Mental Status: Mental status NL Medications Current Medications Medications Dose Ordered Sig/Aliya Route Start Time Stop Time Status Last Admin Dose Admin Azithromycin 250 ml @ 125 mls/hr DAILY IV 08/23/24 10:00 08/26/24 09:54 125 MLS/HR Aspirin 81 mg DAILY PO 08/23/24 10:00 08/26/24 09:56 81 MG Hydralazine HCl 10 mg Q6HP PRN IV 08/22/24 23:30 Diagnostic Test (Pha) 1 strip IQ4HR 08/23/24 00:00 08/26/24 12:00 1 STRIP Insulin Human Regular IQ4HR SC 08/23/24 00:00 08/26/24 12:00 3 UNITS Dextrose 50 ml UD PRN IV 08/22/24 23:30 Sodium Chloride 10 ml Q8HR IV 08/23/24 06:00 08/26/24 06:19 10 ML Acetaminophen/ Hydrocodone Bitart 1 tab Q4HP PRN PO 08/22/24 23:30 Ondansetron HCl 4 mg Q4HP PRN IV 08/22/24 23:30 Docusate Sodium 100 mg BIDPRN PRN PO 08/22/24 23:30 Acetaminophen 650 mg Q6HP PRN PO 08/22/24 23:30 Nitroglycerin 0.4 mg Q5MINP PRN SL 08/22/24 23:30 Morphine Sulfate 2 mg Q30M PRN IV 08/22/24 23:30 Ceftriaxone Sodium 50 ml @ 100 mls/hr DAILY@09 IV 08/23/24 09:00 08/26/24 09:54 100 MLS/HR Carvedilol 6.25 mg Q12HR PO 08/24/24 22:00 08/26/24 09:55 6.25 MG Furosemide 20 mg BIDD IV 08/25/24 06:00 08/26/24 06:20 20 MG Spironolactone 12.5 mg DAILY PO 08/25/24 10:00 08/26/24 09:56 12.5 MG Valsartan 40 mg DAILY PO 08/25/24 10:00 08/26/24 09:55 40 MG Empaglifozin 10 mg DAILY PO 08/25/24 10:00 08/26/24 09:56 10 MG Enoxaparin Sodium 30 mg DAILY SC 08/25/24 10:00 08/26/24 09:54 30 MG Laboratory Results Laboratory Tests 08/26/24 10:59 Chemistry Test 08/26/24 10:59 Calcium Level 9.8 mg/dL (8.7-10.4) Urinalysis Test 08/23/24 00:00 Urine Color Colorless (Yellow) Urine Clarity Turbid (Clear) H Urine pH 5.5 (5.0-9.0) Urine Specific [place] 1.005 (1.001-1.035) Urine Protein 1+ (Negative) H Urine Ketones Negative (Negative) Urine Blood 3+ /uL (Negative) H Urine Nitrite Negative (Negative) Urine Bilirubin Negative (Negative) Urine Urobilinogen Normal mg/dL (Negative) Urine Leukocyte Esterase Trace /uL (Negative) Urine RBC 1175 /hpf (0 - 3) Urine Microscopic WBC 22 /HPF (0-3) H Urine Squamous Epithelial Cells None seen /hpf (<5) Urine Bacteria None seen /hpf (None Seen) Urine Mucus Few (None Seen) Urine Glucose Normal mg/dL (Normal) Microbiology Microbiology Date/Time Source Procedure Growth Status 08/22/24 23:51 Blood Blood Culture - Preliminary NO GROWTH AFTER 72 HOURS OF INCUBATION. Resulted Labs and/or images reviewed: Labs reviewed by me, Image(s) reviewed by me Assessment/Plan Assessment/Plan Impression: -acute hypoxic respiratory failure -acute systolic heart failure with ejection fraction 20% -questionable cardiac mass -diabetes mellitus -dyslipidemia -primary hypertension -hematuria -probable underlying CKD stage IIIB Plan: -change sliding scale to mild a.c./HS -O2 supplementation to keep saturation greater than 92% -continue guideline directed medical therapy for heart failure -continue IV diuresis -plans for SAM in two days -urology consultation for hematuria. Hematuria has resolved -continue statin -continue antibiotics at this time, we will reassess tomorrow after chest x-ray for possible discontinuation -repeat labs in a.m. -long discussion made with the patient and who was bedside. All questions answered. Total time spent with patient discussing and formulating plan of care: 35 minutes. Total time spent with patient and family regarding advance care plannin minutes. This medical document was created using an electronic medical record system with [employer] system. Although this document has been carefully reviewed, there may still be some phonetic and typographical errors. These areas are purely typographical due to imperfections of the software programs, and do not reflect any compromise in the patient's medical care. Plan discussed with: Patient, Other (RN) My Orders Orders - [facility] Procedure Category Date Status Time Basic Metabolic Panel LAB 08/27/24 Verified 04:00 Chest Portable XY 08/27/24 Verified 04:00 Glucose Blood PHA 08/26/24 Verified (Accu-Chek Comfort 17:00 Mild Sliding Scale PHA 08/26/24 Verified 17:00 Dextrose 50% Syringe PHA 08/26/24 Verified 15:45 Date of Service: Aug 26, 2024 Billing Provider: JOURDAN GONZALES NP Common Visit Codes: [id number] INP/OBS CARE(HIGH) Secondary Visit Codes: [id number] CARE PLAN 30 MINUTES JOURDAN GONZALES NP Aug 26, 2024 15:42
[2024-08-26] MEDS ORDERED: DEXTROSE (50%) 50ML SYRG IV PRN (15:45)
[2024-08-26] MEDS: ACCU-CHEK COMFORT CURVE STRIP VI SCH (16:11)
[2024-08-26] MEDS: InsuLIN REG 1unit/0.01ml Soln (100units/ml) SC SCH (16:15)
[2024-08-26 20:25] LABS: Urine Bacteria FEW /hpf (None Seen); Urine Blood 3+ /uL (Negative); Urine Budding Yeast OCCASIONAL /hpf (None Seen); Urine Clarity Clear (Clear); Urine Color Light-Yellow (Yellow); Urine Mucus FEW (None Seen); Urine Protein, UAD TRACE (Negative); Urine Specific Gravity 1.018 (1.001-1.035); Urine Squamous Epithelial Cell FEW /hpf (<5); Urine Urobilinogen Normal (Negative); Urine WBC 16 /HPF (0-3); Urine pH 5.5 (5.0-9.0)
[2024-08-27] VITALS (8 sets, daily range): BP systolic 107–136; BP diastolic 60–92; PULSE 64–81; RESP 16–19; TEMP 97.4–98.1; O2SAT 93–99
[2024-08-27 08:06] LABS: Chloride 103 mmol/L (98-107); Potassium 4.1 mmol/L (3.5-5.1); Sodium 139 mmol/L (136-145)
[2024-08-27 08:07] LABS: Anion Gap 10 (5-15); Carbon Dioxide 26 mmol/L (20-31)
[2024-08-27 08:08] LABS: Calcium 10.1 mg/dL (8.7-10.4)
[2024-08-27 08:12] LABS: BUN/Creatinine Ratio 22.8 (10.0-20.0)
[2024-08-27 08:13] LABS: Blood Urea Nitrogen 38 mg/dL (9-23); Glucose 137 mg/dL (74-106)
--- NOTE | 2024-08-27 08:33 | DVH ---
INDICATION: chf TECHNIQUE: Frontal view of the chest. COMPARISON: XY CHEST PORTABLE on DOS: 08/25/24, XY CHEST PORTABLE on DOS: 08/22/24 FINDINGS: . The heart and mediastinal contours are grossly unremarkable. There is no evidence of pleural disea se. The lungs are clear. The bony structures of the chest are intact without fracture. IMPRESSION: 1. No evidence of acute disease.
--- NOTE | 2024-08-27 10:28 | DVHPN2 ---
Consult Progress Note Subjective Other Systems: Patient remains in normal sinus rhythm on night monitor. Denies any cardiac symptoms at time of assessment Objective vital signs Vital Sign Date Time Temp Pulse Resp B/P (MAP) Pulse Ox O2 Delivery O2 Flow Rate FiO2 08/27/24 08:46 107/75 08/27/24 08:45 84 08/27/24 08:00 18 96 Nasal Cannula* 4 36 08/27/24 05:00 97.4 97.4 Total Intake and Output 08/26/24 08/26/24 08/27/24 15:00 23:00 07:00 Intake Total 250 ml 1320 ml 600 ml Output Total 1900 ml 1900 ml Balance 250 ml -580 ml -1300 ml medications Current Medications Medications Dose Ordered Sig/Aliya Route Start Time Stop Time Status Last Admin Dose Admin Azithromycin 250 ml @ 125 mls/hr DAILY IV 08/23/24 10:00 08/27/24 08:44 125 MLS/HR Aspirin 81 mg DAILY PO 08/23/24 10:00 08/27/24 08:46 81 MG Hydralazine HCl 10 mg Q6HP PRN IV 08/22/24 23:30 Sodium Chloride 10 ml Q8HR IV 08/23/24 06:00 08/27/24 05:22 10 ML Acetaminophen/ Hydrocodone Bitart 1 tab Q4HP PRN PO 08/22/24 23:30 Ondansetron HCl 4 mg Q4HP PRN IV 08/22/24 23:30 Docusate Sodium 100 mg BIDPRN PRN PO 08/22/24 23:30 Acetaminophen 650 mg Q6HP PRN PO 08/22/24 23:30 Nitroglycerin 0.4 mg Q5MINP PRN SL 08/22/24 23:30 Morphine Sulfate 2 mg Q30M PRN IV 08/22/24 23:30 Ceftriaxone Sodium 50 ml @ 100 mls/hr DAILY@09 IV 08/23/24 09:00 08/27/24 08:44 100 MLS/HR Carvedilol 6.25 mg Q12HR PO 08/24/24 22:00 08/27/24 08:45 6.25 MG Furosemide 20 mg BIDD IV 08/25/24 06:00 08/27/24 05:21 20 MG Spironolactone 12.5 mg DAILY PO 08/25/24 10:00 08/27/24 08:44 12.5 MG Valsartan 40 mg DAILY PO 08/25/24 10:00 08/27/24 08:46 40 MG Empaglifozin 10 mg DAILY PO 08/25/24 10:00 08/27/24 08:46 10 MG Enoxaparin Sodium 30 mg DAILY SC 08/25/24 10:00 08/27/24 08:46 30 MG Diagnostic Test (Pha) 1 strip ACHS 08/26/24 17:00 08/27/24 06:31 1 STRIP Insulin Human Regular ACHS SC 08/26/24 17:00 08/27/24 06:38 2 UNITS Dextrose 50 ml UD PRN IV 08/26/24 15:45 Examination: GENERAL:Normal, LUNGS:Normal, CVS:Normal, NEURO:Normal laboratory and microbiology Laboratory Tests 08/27/24 06:21 08/26/24 10:59 Test 08/27/24 06:21 Range/Units Serum Glucose 137 H 74-106 mg/dL Problem List/Assessment/Plan Problem List/Assessment/Plan Non ST-elevation myocardial infarction Rule out coronary artery disease Acute on chronic decompensated HFrEF, NYHA class III, newly diagnosed Moderate tricuspid regurgitation Hypertensive urgency, resolved Type II diabetes mellitus Dyslipidemia Acute kidney injury Tobacco use Plan/Recommendation (Dr. Taylor) Transthoracic echocardiogram revealed an EF of 20% with severe global hypokinesis and suggestions for a transesophageal echocardiogram to further delineate the numerous abnormal structural findings (see echo report). [place] spinning machine tender was used to speak with the patient and his at bedside regarding recommended transesophageal echocardiogram. Initially the patient refused procedure, but has now changed his mind and is agreeable. The patient has been scheduled to undergo a transesophageal echocardiogram on 08/28/2024. Continue guideline directed medical therapy for CHF, continue preload and afterload reduction, strict intake and output, daily weights, and maintaining fluid restriction. Continue with close cardiac surveillance. Thank you for allowing us to care for this patient. Please call with any questions or concerns. This medical document was created using an electronic medical record system with voice recognition software and computerized dictation system. Although this document has been carefully reviewed, there might still be some phonetic and typographical errors. Occasional wrong-word or ``sound-alike substitutions may have occurred due to the inherent limitations of voice recognition software. These areas are purely typographical due to imperfections of the software programs and do not reflect any compromise in the patient's medical care. Please read the chart carefully and recognize, using context, where these substitutions have occurred. Plan discussed with: Patient, Other (Bedside RN) Dietary Evaluation Review Comments: 1) Add cardiac restriction to 60g CCHO diet 2) Encourage optimal beverage intake. Continue IV hydration. 3) F/u with cardiology and nephrology 4) Continue to monitor I&O, labs, and skin integrity Expected Outcomes/Goals: 1) appetite and labs to improve 2) f/u in 3-5 days Date of Service: Aug 27, 2024 Billing Provider: ULI RIVERA Common Visit Codes: [id number] INP/OBS CARE(HIGH) ULI RIVERA Aug 27, 2024 10:28
[2024-08-27] MEDS: FLUCONAZOLE 100 MG TAB PO ONE (16:06)
--- NOTE | 2024-08-27 16:16 | DVHPN2 ---
Subjective Patient's cough and dyspnea has improved. Reviewed: Care Plan, H&P, Labs, Medications, Previous Orders, Radiology Changes from previous H/P or p: Changes General: Per HPI ENT: No Ear pain, No Ear discharge, No Nose pain, No Nose discharge, No Nose congestion, No Mouth pain, No Mouth swelling, No Throat pain, No Throat swelling, No Other Cardiovascular: No Chest Pain, No Palpitations, No Orthopnea, No Paroxysmal Noc. Dyspnea, No Edema, No Lt Headedness, No Other Respiratory: No Cough, No Dry; Shortness of breath; No SOB with excertion, No Wheezing, No Hemoptysis, No Pleuritic Pain, No Sputum; Other (SOB at rest) Gastrointestinal: No Nausea, No Vomiting, No Abdominal Pain, No Diarrhea, No Constipation, No Melena, No Hematochezia, No Other Genitourinary: No Dysuria, No Frequency, No Incontinence, No Hematuria, No Retention, No Other Musculoskeletal: No other, No neck pain, No shoulder pain, No arm pain, No back pain, No hand pain, No leg pain, No foot pain Skin: No Rash, No Lesions, No Jaundice, No Bruising, No Other Objective Vitals Vital Signs Date Time Temp Pulse Resp B/P (MAP) Pulse Ox O2 Delivery O2 Flow Rate FiO2 08/27/24 12:47 97.9 81 18 131/92 (105) 94 97.9 08/27/24 08:00 Nasal Cannula* 4 36 Intake/Output Intake and Output 08/27/24 07:00 Intake Total 2170 ml Output Total 3800 ml Balance -1630 ml Intake Oral 1920 ml IV Total 250 ml Output Urine Total 3800 ml General Appearance: Alert, Oriented X3, Cooperative, No acute distress HEENT: Atraumatic, PERRLA, EOMI, Mucous membr. moist/pink Lungs: Clear to auscultation, Normal air movement Cardiovascular: Regular rate, Normal S1, Normal S2, No murmurs, Gallops, Rubs Abdomen: Normal bowel sounds, Soft, No tenderness Neuro: Cranial nerves 3-12 NL Psych/Mental Status: Mental status NL Medications Current Medications Medications Dose Ordered Sig/Aliya Route Start Time Stop Time Status Last Admin Dose Admin Aspirin 81 mg DAILY PO 08/23/24 10:00 08/27/24 08:46 81 MG Hydralazine HCl 10 mg Q6HP PRN IV 08/22/24 23:30 Sodium Chloride 10 ml Q8HR IV 08/23/24 06:00 08/27/24 13:54 10 ML Acetaminophen/ Hydrocodone Bitart 1 tab Q4HP PRN PO 08/22/24 23:30 Ondansetron HCl 4 mg Q4HP PRN IV 08/22/24 23:30 Docusate Sodium 100 mg BIDPRN PRN PO 08/22/24 23:30 Acetaminophen 650 mg Q6HP PRN PO 08/22/24 23:30 Nitroglycerin 0.4 mg Q5MINP PRN SL 08/22/24 23:30 Morphine Sulfate 2 mg Q30M PRN IV 08/22/24 23:30 Ceftriaxone Sodium 50 ml @ 100 mls/hr DAILY@09 IV 08/23/24 09:00 08/27/24 08:44 100 MLS/HR Carvedilol 6.25 mg Q12HR PO 08/24/24 22:00 08/27/24 08:45 6.25 MG Spironolactone 12.5 mg DAILY PO 08/25/24 10:00 08/27/24 08:44 12.5 MG Valsartan 40 mg DAILY PO 08/25/24 10:00 08/27/24 08:46 40 MG Enoxaparin Sodium 30 mg DAILY SC 08/25/24 10:00 08/27/24 08:46 30 MG Diagnostic Test (Pha) 1 strip ACHS 08/26/24 17:00 08/27/24 11:38 1 STRIP Insulin Human Regular ACHS SC 08/26/24 17:00 08/27/24 11:48 4 UNITS Dextrose 50 ml UD PRN IV 08/26/24 15:45 Furosemide 20 mg DAILY IV 08/28/24 10:00 Fluconazole 100 mg DAILY PO 08/28/24 10:00 Laboratory Results Laboratory Tests 08/26/24 10:59 08/27/24 06:21 Chemistry Test 08/27/24 06:21 Calcium Level 10.1 mg/dL (8.7-10.4) Urinalysis Test 08/26/24 15:05 Urine Color Light-yellow (Yellow) Urine Clarity Clear (Clear) Urine pH 5.5 (5.0-9.0) Urine Specific [place] 1.018 (1.001-1.035) Urine Protein Trace (Negative) H Urine Ketones Negative (Negative) Urine Blood 3+ /uL (Negative) H Urine Nitrite Negative (Negative) Urine Bilirubin Negative (Negative) Urine Urobilinogen Normal mg/dL (Negative) Urine Leukocyte Esterase 1+ /uL (Negative) Urine RBC 65 /hpf (0 - 3) Urine Microscopic WBC 16 /HPF (0-3) H Urine Squamous Epithelial Cells Few /hpf (<5) Urine Bacteria Few /hpf (None Seen) H Urine Mucus Few (None Seen) Urine Yeast (Budding) Occasional /hpf (None Urine Glucose 4+ mg/dL (Normal) H Microbiology Microbiology Date/Time Source Procedure Growth Status 08/22/24 23:51 Blood Blood Culture - Preliminary NO GROWTH AFTER 72 HOURS OF INCUBATION. Resulted Labs and/or images reviewed: Labs reviewed by me, Image(s) reviewed by me Assessment/Plan Assessment/Plan Impression: -acute hypoxic respiratory failure -acute systolic heart failure with ejection fraction 20% -questionable cardiac mass -diabetes mellitus -dyslipidemia -primary hypertension -hematuria -probable underlying CKD stage IIIB Plan: Events: Repeat chest x-ray today reveals improvement with pulmonary vascular congestion. Patient clinically has less dyspnea, cough. Repeat UA reveals UTI. We will stop Jardiance. Continue Rocephin and add Diflucan for noted yeast. Patient also had some hematuria as well as noted positive blood plus three in UA. Stop Lovenox and continue SCDs for DVT prophylaxis. -O2 supplementation to keep saturation greater than 92% -continue guideline directed medical therapy for heart failure -decrease IV Lasix to daily -cardiology consultation: Plans for SAM tomorrow -urology consultation for hematuria. Hematuria has resolved -continue statin -stop azithromycin, continue Rocephin -repeat labs in a.m. -PT consultation Total time spent with patient discussing and formulating plan of care: 35 minutes. This medical document was created using an electronic medical record system with [employer] dictation system. Although this document has been carefully reviewed, there may still be some phonetic and typographical errors. These areas are purely typographical due to imperfections of the software programs, and do not reflect any compromise in the patient's medical care. Plan discussed with: Patient, Other (RN) My Orders Orders - JOURDAN GONZALES NP Procedure Category Date Status Time Furosemide Injection PHA 08/28/24 In Process (Lasix Injection) 10:00 Pt Request For Service PT 08/27/24 Logged 14:32 Fluconazole Tablet PHA 08/28/24 In Process (Diflucan Tablet) 10:00 Basic Metabolic Panel LAB 08/28/24 Verified 04:00 PTPTT LAB 08/28/24 Verified 04:00 Date of Service: Aug 27, 2024 Billing Provider: JOURDAN GONZALES NP Common Visit Codes: [id number] INP/OBS CARE(HIGH) JOURDAN GONZALES NP Aug 27, 2024 16:16
[2024-08-28] VITALS (10 sets, daily range): BP systolic 98–138; BP diastolic 56–86; PULSE 61–83; RESP 14–18; TEMP 98–98.7; O2SAT 93–100
[2024-08-28 06:30] LABS: INR 0.99 (0.9-1.15); Partial Thromboplastin Time 27.9 SEC (24.5-34.5); Prothrombin Time 10.5 sec (9.3-11.8)
[2024-08-28 06:39] LABS: Calcium 10.3 mg/dL (8.7-10.4); Chloride 104 mmol/L (98-107); Potassium 4.1 mmol/L (3.5-5.1); Sodium 139 mmol/L (136-145)
[2024-08-28 06:40] LABS: Anion Gap 10 (5-15); Carbon Dioxide 25 mmol/L (20-31)
[2024-08-28 06:46] LABS: BUN/Creatinine Ratio 27.2 (10.0-20.0); Blood Urea Nitrogen 46 mg/dL (9-23); Glucose 136 mg/dL (74-106)
[2024-08-28] MEDS: LIDOCAINE VISCOUS 2% 15ML UD PO ONE (08:15)
[2024-08-28] MEDS: ONDANSETRON HCL 4 MG/2 ML VIAL IV ONE (08:15)
[2024-08-28] MEDS: MIDAZOLAM HCL 2MG/2ML 2ml VIAL (1mg/ml) IV ONE (09:45)
[2024-08-28] MEDS: fentaNYL CITRATE 100 MCG/2 ML VL IV ONE (09:45)
[2024-08-28] MEDS: FUROSEMIDE 40 MG/4 ML VIAL IV SCH (11:10)
[2024-08-28] MEDS: FLUCONAZOLE 100 MG TAB PO SCH (11:11)
--- NOTE | 2024-08-28 11:55 | DVHOP2 ---
Operative Report - 2 Report Details Date: 08/28/24 Preop Diagnosis: Abnormal echo. Rule out structural defect Postop Diagnosis: Anterior hypokinesis to akinesis Surgeon: Gold Taylor MD Anesthesiologist: Conscious sedation Anesthesia: Mac, Local (Lidocaine was given for gargling. Conscious sedation was undertaken with Versed and fentanyl. I personally ordered and monitored patient throughout the entirety of the procedure.) Consent: The patient was informed of the risks and benefits of the procedure. These include but are not limited to complications of anesthesia, postoperative infection, incomplete relief of symptoms, recurrence of symptoms, damage to blood vessels, nerves and tendons, deep venous thrombosis, pulmonary embolism and possible need for repeat surgery in the future. Complications: No complications Findings: Anterior wall hypokinesis Indications for Surgery: Structural defect found in anterior wall on transthoracic echo Name of Procedure Performed Transesophageal echocardiogram Procedure Details Procedure Details: Prior full informed consent obtained the patient was prepped and draped in usual fashion followed by placement of the transesophageal probe. Standard views obtained. Technically good study. Sinus rhythm. Left atrial enlargement. Left ventricular enlargement. Valves are normal. Left ventricular systolic performance is diminished. There is anterior hypokinesis of [id number] degree. Overall estimated ejection fraction i s about 30%. Previous transthoracic echocardiogram showed what appeared to be a cystic type lesion in the anterior septum. It appears on transesophageal echocardiogram that the papillary muscle adjacent to the anterior wall gives the impression of an enclose cystic lesion. This is in fact just a papillary muscle. The anterior wall is notably hypokinetic but still functional. There was no cystic lesion noted. Right ventricular function is preserved. Transgastric views are unremarkable and concordant with what is noted above. There is mild tricuspid regurgitation mild mitral insufficiency noted on transesophageal imaging. There is trace aortic insufficiency. No pericardial effusion masses or vegetations discernible. Condition Good Disposition Still a Patient Date of Service: Aug 28, 2024 Billing Provider: GOLD TAYLOR Sr., MD Cardiology Common Codes: PROCEDURE ONLY Cardiology Procedure Codes: [id number] W/IMG DOC INCL PROB ACQ GOLD TAYLOR Sr., MD Aug 28, 2024 11:55
--- NOTE | 2024-08-28 13:44 | DVHPN2 ---
Consult Progress Note Date Seen: Aug 28, 2024 Subjective Review of Systems: CVS:Normal, RESPIRATORY:Normal, NEURO:Normal Objective vital signs Vital Sign Date Time Temp Pulse Resp B/P (MAP) Pulse Ox O2 Delivery O2 Flow Rate FiO2 08/28/24 11:13 118/66 08/28/24 11:11 62 08/28/24 10:51 17 98 08/28/24 05:00 98.2 98.2 08/27/24 20:18 Nasal Cannula* 4 36 Total Intake and Output 08/27/24 08/27/24 08/28/24 15:00 23:00 07:00 Intake Total 300 ml 1090 ml 440 ml Output Total 1250 ml 1000 ml Balance 300 ml -160 ml -560 ml medications Current Medications Medications Dose Ordered Sig/Aliya Route Start Time Stop Time Status Last Admin Dose Admin Aspirin 81 mg DAILY PO 08/23/24 10:00 08/28/24 10:00 81 MG Hydralazine HCl 10 mg Q6HP PRN IV 08/22/24 23:30 Sodium Chloride 10 ml Q8HR IV 08/23/24 06:00 08/28/24 05:13 10 ML Acetaminophen/ Hydrocodone Bitart 1 tab Q4HP PRN PO 08/22/24 23:30 Ondansetron HCl 4 mg Q4HP PRN IV 08/22/24 23:30 Docusate Sodium 100 mg BIDPRN PRN PO 08/22/24 23:30 Acetaminophen 650 mg Q6HP PRN PO 08/22/24 23:30 Nitroglycerin 0.4 mg Q5MINP PRN SL 08/22/24 23:30 Morphine Sulfate 2 mg Q30M PRN IV 08/22/24 23:30 Ceftriaxone Sodium 50 ml @ 100 mls/hr DAILY@09 IV 08/23/24 09:00 08/28/24 11:08 100 MLS/HR Carvedilol 6.25 mg Q12HR PO 08/24/24 22:00 08/28/24 11:11 6.25 MG Spironolactone 12.5 mg DAILY PO 08/25/24 10:00 08/28/24 11:12 12.5 MG Valsartan 40 mg DAILY PO 08/25/24 10:00 08/28/24 11:13 40 MG Enoxaparin Sodium 30 mg DAILY SC 08/25/24 10:00 08/27/24 08:46 30 MG Diagnostic Test (Pha) 1 strip ACHS 08/26/24 17:00 08/28/24 11:30 1 STRIP Insulin Human Regular ACHS SC 08/26/24 17:00 08/28/24 11:30 2 UNITS Dextrose 50 ml UD PRN IV 08/26/24 15:45 Furosemide 20 mg DAILY IV 08/28/24 10:00 08/28/24 11:10 20 MG Fluconazole 100 mg DAILY PO 08/28/24 10:00 08/28/24 11:11 100 MG Examination: LUNGS:Normal, CVS:Normal, NEURO:Abnormal (Tremors present) laboratory and microbiology Laboratory Tests 08/28/24 04:39 08/26/24 10:59 Test 08/28/24 04:39 Range/Units Serum Glucose 136 H 74-106 mg/dL Problem List/Assessment/Plan Problem List/Assessment/Plan Non ST-elevation myocardial infarction Acute on chronic decompensated HFrEF, NYHA class III, newly diagnosed Rule out coronary artery disease Moderate tricuspid regurgitation Hypertensive urgency, resolved Type II diabetes mellitus Dyslipidemia Acute kidney injury Tobacco use Plan/Recommendation (Dr. Taylor) Transthoracic echocardiogram revealed an EF of 20% with severe global hypokinesis. Status post transesophageal echocardiogram with unremarkable structural findings. Ischemic work-up offered to patient which he declines at this time. and daughter at bedside at the time of conversation. They would like to speak to the patient and we will re-evaluate in case the patient considers undergoing invasive cardiac work-up. In the meantime, continue GDMT for HFrEF, monitor renal function closely. Continue preload and afterload reduction, strict I&Os, daily weight, and fluid restriction. DVT/VTE prophylaxis. Further management per clinical course. Thank you for allowing us to care for this patient. Please call with any questions or concerns. This medical document was created using an electronic medical record system with voice recognition software and computerized dictation system. Although this document has been carefully reviewed, there might still be some phonetic and typographical errors. Occasional wrong-word or ``sound-alike substitutions may have occurred due to the inherent limitations of voice recognition software. These areas are purely typographical due to imperfections of the software programs and do not reflect any compromise in the patient's medical care. Please read the chart carefully and recognize, using context, where these substitutions have occurred. Plan discussed with: Patient, Spouse, Daughter, Other Dietary Evaluation Review Comments: 1) Add cardiac restriction to 60g CCHO diet 2) Encourage optimal beverage intake. Continue IV hydration. 3) F/u with cardiology and nephrology 4) Continue to monitor I&O, labs, and skin integrity Expected Outcomes/Goals: 1) appetite and labs to improve 2) f/u in 3-5 days Date of Service: Aug 28, 2024 Billing Provider: JOSE MACDONALD Cardiology Common Codes: [id number] HOSP CARE(High JOSE MACDONALD Aug 28, 2024 13:44
--- NOTE | 2024-08-28 15:05 | DVHPN2 ---
Subjective Patient denies any symptoms. Reviewed: Care Plan, H&P, Labs, Medications, Previous Orders, Radiology Changes from previous H/P or p: Changes General: Per HPI ENT: No Ear pain, No Ear discharge, No Nose pain, No Nose discharge, No Nose congestion, No Mouth pain, No Mouth swelling, No Throat pain, No Throat swelling, No Other Cardiovascular: No Chest Pain, No Palpitations, No Orthopnea, No Paroxysmal Noc. Dyspnea, No Edema, No Lt Headedness, No Other Respiratory: No Cough, No Dry; Shortness of breath; No SOB with excertion, No Wheezing, No Hemoptysis, No Pleuritic Pain, No Sputum; Other (SOB at rest) Gastrointestinal: No Nausea, No Vomiting, No Abdominal Pain, No Diarrhea, No Constipation, No Melena, No Hematochezia, No Other Genitourinary: No Dysuria, No Frequency, No Incontinence, No Hematuria, No Retention, No Other Musculoskeletal: No other, No neck pain, No shoulder pain, No arm pain, No back pain, No hand pain, No leg pain, No foot pain Skin: No Rash, No Lesions, No Jaundice, No Bruising, No Other Objective Vitals Vital Signs Date Time Temp Pulse Resp B/P (MAP) Pulse Ox O2 Delivery O2 Flow Rate FiO2 08/28/24 11:13 118/66 08/28/24 11:11 62 08/28/24 10:51 17 98 08/28/24 05:00 98.2 98.2 08/27/24 20:18 Nasal Cannula* 4 36 Intake/Output Intake and Output 08/28/24 07:00 Intake Total 1830 ml Output Total 2250 ml Balance -420 ml Intake Oral 1530 ml IV Total 300 ml Output Urine Total 2250 ml General Appearance: Alert, Oriented X3, Cooperative, No acute distress HEENT: Atraumatic, PERRLA, EOMI, Mucous membr. moist/pink Lungs: Clear to auscultation, Normal air movement Cardiovascular: Regular rate, Normal S1, Normal S2, No murmurs, Gallops, Rubs Abdomen: Normal bowel sounds, Soft, No tenderness Neuro: Cranial nerves 3-12 NL Skin: Dry, Intact Psych/Mental Status: Mental status NL Medications Current Medications Medications Dose Ordered Sig/Aliya Route Start Time Stop Time Status Last Admin Dose Admin Aspirin 81 mg DAILY PO 08/23/24 10:00 08/28/24 10:00 81 MG Hydralazine HCl 10 mg Q6HP PRN IV 08/22/24 23:30 Sodium Chloride 10 ml Q8HR IV 08/23/24 06:00 08/28/24 05:13 10 ML Acetaminophen/ Hydrocodone Bitart 1 tab Q4HP PRN PO 08/22/24 23:30 Ondansetron HCl 4 mg Q4HP PRN IV 08/22/24 23:30 Docusate Sodium 100 mg BIDPRN PRN PO 08/22/24 23:30 Acetaminophen 650 mg Q6HP PRN PO 08/22/24 23:30 Nitroglycerin 0.4 mg Q5MINP PRN SL 08/22/24 23:30 Morphine Sulfate 2 mg Q30M PRN IV 08/22/24 23:30 Ceftriaxone Sodium 50 ml @ 100 mls/hr DAILY@09 IV 08/23/24 09:00 08/28/24 11:08 100 MLS/HR Carvedilol 6.25 mg Q12HR PO 08/24/24 22:00 08/28/24 11:11 6.25 MG Spironolactone 12.5 mg DAILY PO 08/25/24 10:00 08/28/24 11:12 12.5 MG Valsartan 40 mg DAILY PO 08/25/24 10:00 08/28/24 11:13 40 MG Diagnostic Test (Pha) 1 strip ACHS 08/26/24 17:00 08/28/24 11:30 1 STRIP Insulin Human Regular ACHS SC 08/26/24 17:00 08/28/24 11:30 2 UNITS Dextrose 50 ml UD PRN IV 08/26/24 15:45 Furosemide 20 mg DAILY IV 08/28/24 10:00 08/28/24 11:10 20 MG Fluconazole 100 mg DAILY PO 08/28/24 10:00 08/28/24 11:11 100 MG Acetylcysteine 600 mg BID PO 08/29/24 10:00 08/31/24 09:59 UNV Laboratory Results Laboratory Tests 08/26/24 10:59 08/28/24 04:39 Chemistry Test 08/28/24 04:39 Calcium Level 10.3 mg/dL (8.7-10.4) Coagulation Test 08/28/24 04:39 Prothrombin Time 10.5 sec (9.3-11.8) Prothrombin Time INR 0.99 (0.9-1.15) Activated Partial Thromboplast Time 27.9 SEC (24.5-34.5) Urinalysis Test 08/26/24 15:05 Urine Color Light-yellow (Yellow) Urine Clarity Clear (Clear) Urine pH 5.5 (5.0-9.0) Urine Specific [place] 1.018 (1.001-1.035) Urine Protein Trace (Negative) H Urine Ketones Negative (Negative) Urine Blood 3+ /uL (Negative) H Urine Nitrite Negative (Negative) Urine Bilirubin Negative (Negative) Urine Urobilinogen Normal mg/dL (Negative) Urine Leukocyte Esterase 1+ /uL (Negative) Urine RBC 65 /hpf (0 - 3) Urine Microscopic WBC 16 /HPF (0-3) H Urine Squamous Epithelial Cells Few /hpf (<5) Urine Bacteria Few /hpf (None Seen) H Urine Mucus Few (None Seen) Urine Yeast (Budding) Occasional /hpf (None Urine Glucose 4+ mg/dL (Normal) H Microbiology Microbiology Date/Time Source Procedure Growth Status 08/22/24 23:51 Blood Blood Culture - Final NO GROWTH AFTER 5 DAYS OF INCUBATION. Complete Labs and/or images reviewed: Labs reviewed by me, Image(s) reviewed by me Assessment/Plan Assessment/Plan Impression: -acute hypoxic respiratory failure -acute systolic heart failure with ejection fraction 20% -questionable cardiac mass -diabetes mellitus -dyslipidemia -primary hypertension -hematuria -probable underlying CKD stage IIIB Plan: Events: Patient weaned off of oxygen by myself. Patient noted to be saturating 97% on room air. -O2 supplementation to keep saturation greater than 92% -continue guideline directed medical therapy for heart failure -continue current IV diuresis -cardiology consultation: SAM performed with no signs of cardiac mass. Plans for left heart catheterization tomorrow. -urology consultation for hematuria. Hematuria has resolved -continue statin -continue Rocephin and Diflucan -repeat labs in a.m. -PT consultation Total time spent with patient discussing and formulating plan of care: 35 minutes. This medical document was created using an electronic medical record system with [employer] system. Although this document has been carefully reviewed, there may still be some phonetic and typographical errors. These areas are purely typographical due to imperfections of the software programs, and do not reflect any compromise in the patient's medical care. Plan discussed with: Patient, Other (RN) My Orders Orders - JOURDAN GONZALES NP Procedure Category Date Status Time Acetylcysteine Po PHA 08/29/24 Logged (For Tiffany) ([employer] Po 10:00 Date of Service: Aug 28, 2024 Billing Provider: JOURDAN GONZALES NP Common Visit Codes: [id number] INP/OBS CARE(HIGH) JOURDAN GONZALES NP Aug 28, 2024 15:05
[2024-08-28] MEDS: MELATONIN 5 MG TAB PO PRN (23:47)
[2024-08-29] VITALS (7 sets, daily range): BP systolic 99–134; BP diastolic 57–73; PULSE 73–85; RESP 16–18; TEMP 97.5–98.2; O2SAT 90–98
--- NOTE | 2024-08-29 09:09 | DVHPN2 ---
Subjective Patient denies any symptoms. Reviewed: Care Plan, H&P, Labs, Medications, Previous Orders, Radiology Changes from previous H/P or p: No Changes General: Per HPI ENT: No Ear pain, No Ear discharge, No Nose pain, No Nose discharge, No Nose congestion, No Mouth pain, No Mouth swelling, No Throat pain, No Throat swelling, No Other Cardiovascular: No Chest Pain, No Palpitations, No Orthopnea, No Paroxysmal Noc. Dyspnea, No Edema, No Lt Headedness, No Other Respiratory: No Cough, No Dry; Shortness of breath; No SOB with excertion, No Wheezing, No Hemoptysis, No Pleuritic Pain, No Sputum; Other (SOB at rest) Gastrointestinal: No Nausea, No Vomiting, No Abdominal Pain, No Diarrhea, No Constipation, No Melena, No Hematochezia, No Other Genitourinary: No Dysuria, No Frequency, No Incontinence, No Hematuria, No Retention, No Other Musculoskeletal: No other, No neck pain, No shoulder pain, No arm pain, No back pain, No hand pain, No leg pain, No foot pain Skin: No Rash, No Lesions, No Jaundice, No Bruising, No Other Objective Vitals Vital Signs Date Time Temp Pulse Resp B/P (MAP) Pulse Ox O2 Delivery O2 Flow Rate FiO2 08/29/24 05:00 97.9 79 18 99/57 (71) 92 97.9 08/28/24 20:30 Room Air* 0 21 Intake/Output Intake and Output 08/29/24 07:00 Intake Total 990 ml Output Total 1525 ml Balance -535 ml Intake Oral 940 ml IV Total 50 ml Output Urine Total 1525 ml # Bowel Movements 1 General Appearance: Alert, Oriented X3, Cooperative, No acute distress HEENT: Atraumatic, PERRLA, EOMI, Mucous membr. moist/pink Lungs: Clear to auscultation, Normal air movement Cardiovascular: Regular rate, Normal S1, Normal S2, No murmurs, Gallops, Rubs Abdomen: Normal bowel sounds, Soft, No tenderness Neuro: Cranial nerves 3-12 NL Skin: Dry, Intact Psych/Mental Status: Mental status NL Medications Current Medications Medications Dose Ordered Sig/Aliya Route Start Time Stop Time Status Last Admin Dose Admin Aspirin 81 mg DAILY PO 08/23/24 10:00 08/28/24 10:00 81 MG Hydralazine HCl 10 mg Q6HP PRN IV 08/22/24 23:30 Sodium Chloride 10 ml Q8HR IV 08/23/24 06:00 08/29/24 05:23 10 ML Acetaminophen/ Hydrocodone Bitart 1 tab Q4HP PRN PO 08/22/24 23:30 Ondansetron HCl 4 mg Q4HP PRN IV 08/22/24 23:30 Docusate Sodium 100 mg BIDPRN PRN PO 08/22/24 23:30 Acetaminophen 650 mg Q6HP PRN PO 08/22/24 23:30 Nitroglycerin 0.4 mg Q5MINP PRN SL 08/22/24 23:30 Morphine Sulfate 2 mg Q30M PRN IV 08/22/24 23:30 Ceftriaxone Sodium 50 ml @ 100 mls/hr DAILY@09 IV 08/23/24 09:00 08/28/24 11:08 100 MLS/HR Carvedilol 6.25 mg Q12HR PO 08/24/24 22:00 08/28/24 21:40 6.25 MG Spironolactone 12.5 mg DAILY PO 08/25/24 10:00 08/28/24 11:12 12.5 MG Valsartan 40 mg DAILY PO 08/25/24 10:00 08/28/24 11:13 40 MG Diagnostic Test (Pha) 1 strip ACHS 08/26/24 17:00 08/29/24 06:32 1 STRIP Insulin Human Regular ACHS SC 08/26/24 17:00 08/28/24 21:47 4 UNITS Dextrose 50 ml UD PRN IV 08/26/24 15:45 Furosemide 20 mg DAILY IV 08/28/24 10:00 08/28/24 11:10 20 MG Fluconazole 100 mg DAILY PO 08/28/24 10:00 08/28/24 11:11 100 MG Acetylcysteine 600 mg BID PO 08/29/24 10:00 08/31/24 09:59 Melatonin 10 mg HS PRN PO 08/28/24 23:00 08/28/24 23:47 10 MG Laboratory Results Laboratory Tests 08/26/24 10:59 08/28/24 04:39 Urinalysis Test 08/26/24 15:05 Urine Color Light-yellow (Yellow) Urine Clarity Clear (Clear) Urine pH 5.5 (5.0-9.0) Urine Specific [place] 1.018 (1.001-1.035) Urine Protein Trace (Negative) H Urine Ketones Negative (Negative) Urine Blood 3+ /uL (Negative) H Urine Nitrite Negative (Negative) Urine Bilirubin Negative (Negative) Urine Urobilinogen Normal mg/dL (Negative) Urine Leukocyte Esterase 1+ /uL (Negative) Urine RBC 65 /hpf (0 - 3) Urine Microscopic WBC 16 /HPF (0-3) H Urine Squamous Epithelial Cells Few /hpf (<5) Urine Bacteria Few /hpf (None Seen) H Urine Mucus Few (None Seen) Urine Yeast (Budding) Occasional /hpf (None Urine Glucose 4+ mg/dL (Normal) H Microbiology Microbiology Date/Time Source Procedure Growth Status 08/22/24 23:51 Blood Blood Culture - Final NO GROWTH AFTER 5 DAYS OF INCUBATION. Complete Labs and/or images reviewed: Labs reviewed by me, Image(s) reviewed by me Assessment/Plan Assessment/Plan Impression: -acute hypoxic respiratory failure -acute systolic heart failure with ejection fraction 20% -questionable cardiac mass -diabetes mellitus -dyslipidemia -primary hypertension -hematuria -probable underlying CKD stage IIIB Plan: Events: No events overnight. Plans for left heart catheterization tomorrow. -O2 supplementation to keep saturation greater than 92% -continue guideline directed medical therapy for heart failure -continue statin -continue Rocephin and Diflucan -repeat labs in a.m. -PT consultation Total time spent with patient discussing and formulating plan of care: 35 minutes. This medical document was created using an electronic medical record system with [employer] dictation system. Although this document has been carefully reviewed, there may still be some phonetic and typographical errors. These areas are purely typographical due to imperfections of the software programs, and do not reflect any compromise in the patient's medical care. Plan discussed with: Patient, Other (RN) My Orders Orders - JOURDAN GONZALES [employer] Procedure Category Date Status Time Acetylcysteine Po PHA 08/29/24 In Process (For Tiffany) (Mucomyst Po 10:00 Acetylcysteine Po PHA 08/30/24 Verified (For Tiffany) (Mucomyst Po 10:00 Urine Bacterial CHRISTINA 08/29/24 Verified Culture 09:06 Basic Metabolic Panel LAB 08/30/24 Verified 04:00 Complete Blood Count LAB 08/30/24 Verified 04:00 Date of Service: Aug 29, 2024 Billing Provider: JOURDAN GONZALES NP Common Visit Codes: [id number] INP/OBS CARE(HIGH) JOURDAN GONZALES NP Aug 29, 2024 09:09
[2024-08-29] MEDS ORDERED: ACETYLCYSTEINE ORAL for CIN 20%(200MG/ML) 4ML PO SCH (10:00)
--- NOTE | 2024-08-29 10:08 | DVHPN2 ---
Consult Progress Note Date Seen: Aug 29, 2024 Subjective Review of Systems: CVS:Normal, RESPIRATORY:Normal, NEURO:Normal Objective vital signs Vital Sign Date Time Temp Pulse Resp B/P (MAP) Pulse Ox O2 Delivery O2 Flow Rate FiO2 08/29/24 09:27 134/73 08/29/24 09:27 81 08/29/24 05:00 97.9 18 92 97.9 08/28/24 20:30 Room Air* 0 21 Total Intake and Output 08/28/24 08/28/24 08/29/24 15:00 23:00 07:00 Intake Total 50 ml 650 ml 290 ml Output Total 950 ml 575 ml Balance 50 ml -300 ml -285 ml medications Current Medications Medications Dose Ordered Sig/Aliya Route Start Time Stop Time Status Last Admin Dose Admin Aspirin 81 mg DAILY PO 08/23/24 10:00 08/29/24 09:26 81 MG Hydralazine HCl 10 mg Q6HP PRN IV 08/22/24 23:30 Sodium Chloride 10 ml Q8HR IV 08/23/24 06:00 08/29/24 05:23 10 ML Acetaminophen/ Hydrocodone Bitart 1 tab Q4HP PRN PO 08/22/24 23:30 Ondansetron HCl 4 mg Q4HP PRN IV 08/22/24 23:30 Docusate Sodium 100 mg BIDPRN PRN PO 08/22/24 23:30 Acetaminophen 650 mg Q6HP PRN PO 08/22/24 23:30 Nitroglycerin 0.4 mg Q5MINP PRN SL 08/22/24 23:30 Morphine Sulfate 2 mg Q30M PRN IV 08/22/24 23:30 Ceftriaxone Sodium 50 ml @ 100 mls/hr DAILY@09 IV 08/23/24 09:00 08/29/24 09:28 100 MLS/HR Carvedilol 6.25 mg Q12HR PO 08/24/24 22:00 08/29/24 09:27 6.25 MG Spironolactone 12.5 mg DAILY PO 08/25/24 10:00 08/29/24 09:28 12.5 MG Valsartan 40 mg DAILY PO 08/25/24 10:00 08/29/24 09:27 40 MG Diagnostic Test (Pha) 1 strip ACHS 08/26/24 17:00 08/29/24 06:32 1 STRIP Insulin Human Regular ACHS SC 08/26/24 17:00 08/28/24 21:47 4 UNITS Dextrose 50 ml UD PRN IV 08/26/24 15:45 Furosemide 20 mg DAILY IV 08/28/24 10:00 08/29/24 09:26 20 MG Fluconazole 100 mg DAILY PO 08/28/24 10:00 08/29/24 09:27 100 MG Melatonin 10 mg HS PRN PO 08/28/24 23:00 08/28/24 23:47 10 MG Acetylcysteine 600 mg BID PO 08/30/24 10:00 08/31/24 22:00 Examination: LUNGS:Normal, CVS:Normal, NEURO:Normal laboratory and microbiology Laboratory Tests 08/28/24 04:39 08/26/24 10:59 Test 08/28/24 04:39 Range/Units Serum Glucose 136 H 74-106 mg/dL Problem List/Assessment/Plan Problem List/Assessment/Plan Non ST-elevation myocardial infarction Acute on chronic decompensated HFrEF, NYHA class III, newly diagnosed Rule out coronary artery disease Moderate tricuspid regurgitation Hypertensive urgency, resolved Type II diabetes mellitus Dyslipidemia Acute kidney injury Tobacco use Plan/Recommendation (Dr. Taylor) Transthoracic echocardiogram revealed an EF of 20% with severe global hypokinesis. Status post transesophageal echocardiogram with unremarkable structural findings. Patient has agreed to undergo ischemic work-up. Scheduled for left cardiac catheterization and coronary angiogram with Dr. Taylor on 08/30/2024. All risks and benefits of the procedure were discussed in full detail with patient, , and daughter at bedside. They all agreed for intervention. All questions answered. Agree with Mucomyst for renal protection. In the meantime, continue GDMT for HFrEF, monitor renal function closely. DVT/VTE prophylaxis. Further management per clinical course. Thank you for allowing us to care for this patient. Please call with any questions or concerns. This medical document was created using an electronic medical record system with voice recognition software and computerized dictation system. Although this document has been carefully reviewed, there might still be some phonetic and typographical errors. Occasional wrong-word or ``sound-alike substitutions may have occurred due to the inherent limitations of voice recognition software. These areas are purely typographical due to imperfections of the software programs and do not reflect any compromise in the patient's medical care. Please read the chart carefully and recognize, using context, where these substitutions have occurred. Plan discussed with: Patient, Spouse, Other Dietary Evaluation Review Comments: 1) Add cardiac restriction to 60g CCHO diet 2) Encourage optimal beverage intake. Continue IV hydration. 3) F/u with cardiology and nephrology 4) Continue to monitor I&O, labs, and skin integrity Expected Outcomes/Goals: 1) appetite and labs to improve 2) f/u in 3-5 days Date of Service: Aug 29, 2024 Billing Provider: JOSE MACDONALD Cardiology Common Codes: [id number] HOSP CARE(High JOSE MACDONALD Aug 29, 2024 10:08
[2024-08-29] MEDS: HYDROcodone-ACET 5/325MG TAB PO PRN (21:30)
[2024-08-30] VITALS (12 sets, daily range): BP systolic 109–149; BP diastolic 59–82; PULSE 60–74; RESP 13–20; TEMP 97.3–98.4; O2SAT 91–99
[2024-08-30 06:20] LABS: Basophils # (auto) 0.1 10 ^3/uL (0-0.2); Basophils % (auto) 1.2 % (0.0-2.0); Eosinophils # (auto) 0.3 10 ^3/uL (0-0.8); Eosinophils % (auto) 4.4 % (0.0-7.0); Hemoglobin 13.7 g/dL (13.5-17.5); Lymphocytes # (auto) 2.1 10 ^3/uL (0.4-5.4); Lymphocytes % (auto) 33.3 % (10.0-50.0); Mean Corpuscular Hemoglobin 31.4 pg (28.0-32.0); Mean Corpuscular Hgb Conc. 34.2 g/dL (32.0-36.0); Mean Corpuscular Volume 91.7 fL (80.0-100.0); Monocytes # (auto) 0.6 10 ^3/uL (0-1.3); Neutrophils # (auto) 3.2 10 ^3/uL (1.6-8.6); Neutrophils % (auto) 52.1 % (37.0-80.0); Platelet Count (auto) 176 10^3/uL (140-450); Red Blood Cells 4.36 10^6/uL (4.5-5.90); Red Cell Distribution Width 13.9 % (11.8-14.3); White Blood Cell 6.2 10^3/uL (4.4-10.8)
[2024-08-30 06:30] LABS: Chloride 104 mmol/L (98-107); INR 1.01 (0.9-1.15); Partial Thromboplastin Time 27.9 SEC (24.5-34.5); Potassium 4.5 mmol/L (3.5-5.1); Prothrombin Time 10.7 sec (9.3-11.8); Sodium 137 mmol/L (136-145)
[2024-08-30 06:31] LABS: Anion Gap 8 (5-15); Carbon Dioxide 25 mmol/L (20-31)
[2024-08-30 06:36] LABS: BUN/Creatinine Ratio 33.9 (10.0-20.0); Blood Urea Nitrogen 56 mg/dL (9-23); Glucose 150 mg/dL (74-106)
[2024-08-30] MEDS: ACETYLCYSTEINE ORAL for CIN 20%(200MG/ML) 4ML PO SCH (09:14)
--- NOTE | 2024-08-30 11:16 | DVHPN2 ---
Subjective The patient is seen and examined at bedside. No complaint today. Patient said his shortness for breath improved. Hematuria improved. Reviewed: Care Plan, H&P, Labs, Medications, Previous Orders, Radiology Changes from previous H/P or p: No Changes General: Per HPI ENT: No Ear pain, No Ear discharge, No Nose pain, No Nose discharge, No Nose congestion, No Mouth pain, No Mouth swelling, No Throat pain, No Throat swelling, No Other Cardiovascular: No Chest Pain, No Palpitations, No Orthopnea, No Paroxysmal Noc. Dyspnea, No Edema, No Lt Headedness, No Other Respiratory: No Cough, No Dry; Shortness of breath; No SOB with excertion, No Wheezing, No Hemoptysis, No Pleuritic Pain, No Sputum; Other (SOB at rest) Gastrointestinal: No Nausea, No Vomiting, No Abdominal Pain, No Diarrhea, No Constipation, No Melena, No Hematochezia, No Other Genitourinary: No Dysuria, No Frequency, No Incontinence, No Hematuria, No Retention, No Other Musculoskeletal: No other, No neck pain, No shoulder pain, No arm pain, No back pain, No hand pain, No leg pain, No foot pain Skin: No Rash, No Lesions, No Jaundice, No Bruising, No Other Objective Vitals Vital Signs Date Time Temp Pulse Resp B/P (MAP) Pulse Ox O2 Delivery O2 Flow Rate FiO2 08/30/24 10:07 66 110/63 08/30/24 09:00 97.9 20 99 97.9 08/29/24 20:00 Room Air* 0 21 Intake/Output Intake and Output 08/30/24 07:00 Intake Total 730 ml Output Total 850 ml Balance -120 ml Intake Oral 730 ml Output Urine Total 850 ml # Voids 8 General Appearance: Alert, Oriented X3, Cooperative, No acute distress HEENT: Atraumatic, PERRLA, EOMI, Mucous membr. moist/pink Lungs: Clear to auscultation, Normal air movement Cardiovascular: Regular rate, Normal S1, Normal S2, No murmurs, Gallops, Rubs Abdomen: Normal bowel sounds, Soft, No tenderness Neuro: Cranial nerves 3-12 NL Skin: Dry, Intact Psych/Mental Status: Mental status NL Medications Current Medications Medications Dose Ordered Sig/Aliya Route Start Time Stop Time Status Last Admin Dose Admin Aspirin 81 mg DAILY PO 08/23/24 10:00 08/30/24 09:06 81 MG Hydralazine HCl 10 mg Q6HP PRN IV 08/22/24 23:30 Sodium Chloride 10 ml Q8HR IV 08/23/24 06:00 08/30/24 05:17 10 ML Acetaminophen/ Hydrocodone Bitart 1 tab Q4HP PRN PO 08/22/24 23:30 08/29/24 21:30 1 TAB Ondansetron HCl 4 mg Q4HP PRN IV 08/22/24 23:30 Docusate Sodium 100 mg BIDPRN PRN PO 08/22/24 23:30 Acetaminophen 650 mg Q6HP PRN PO 08/22/24 23:30 Nitroglycerin 0.4 mg Q5MINP PRN SL 08/22/24 23:30 Morphine Sulfate 2 mg Q30M PRN IV 08/22/24 23:30 Ceftriaxone Sodium 50 ml @ 100 mls/hr DAILY@09 IV 08/23/24 09:00 08/30/24 08:45 100 MLS/HR Carvedilol 6.25 mg Q12HR PO 08/24/24 22:00 08/30/24 09:07 6.25 MG Spironolactone 12.5 mg DAILY PO 08/25/24 10:00 08/29/24 09:28 12.5 MG Valsartan 40 mg DAILY PO 08/25/24 10:00 08/30/24 09:07 40 MG Diagnostic Test (Pha) 1 strip ACHS 08/26/24 17:00 08/30/24 06:43 1 STRIP Insulin Human Regular ACHS SC 08/26/24 17:00 08/29/24 21:41 3 UNITS Dextrose 50 ml UD PRN IV 08/26/24 15:45 Furosemide 20 mg DAILY IV 08/28/24 10:00 08/29/24 09:26 20 MG Fluconazole 100 mg DAILY PO 08/28/24 10:00 08/30/24 09:07 100 MG Melatonin 10 mg HS PRN PO 08/28/24 23:00 08/29/24 21:29 10 MG Acetylcysteine 600 mg BID PO 08/30/24 10:00 08/31/24 22:00 08/30/24 09:14 600 MG Laboratory Results Laboratory Tests 08/30/24 05:30 Chemistry Test 08/30/24 05:30 Calcium Level 10.0 mg/dL (8.7-10.4) Coagulation Test 08/30/24 05:30 Prothrombin Time 10.7 sec (9.3-11.8) Prothrombin Time INR 1.01 (0.9-1.15) Activated Partial Thromboplast Time 27.9 SEC (24.5-34.5) Urinalysis Test 08/26/24 15:05 Urine Color Light-yellow (Yellow) Urine Clarity Clear (Clear) Urine pH 5.5 (5.0-9.0) Urine Specific [place] 1.018 (1.001-1.035) Urine Protein Trace (Negative) H Urine Ketones Negative (Negative) Urine Blood 3+ /uL (Negative) H Urine Nitrite Negative (Negative) Urine Bilirubin Negative (Negative) Urine Urobilinogen Normal mg/dL (Negative) Urine Leukocyte Esterase 1+ /uL (Negative) Urine RBC 65 /hpf (0 - 3) Urine Microscopic WBC 16 /HPF (0-3) H Urine Squamous Epithelial Cells Few /hpf (<5) Urine Bacteria Few /hpf (None Seen) H Urine Mucus Few (None Seen) Urine Yeast (Budding) Occasional /hpf (None Urine Glucose 4+ mg/dL (Normal) H Microbiology Microbiology Date/Time Source Procedure Growth Status 08/29/24 10:53 Voided Urine Urine Culture - Preliminary Resulted 08/22/24 23:51 Blood Blood Culture - Final NO GROWTH AFTER 5 DAYS OF INCUBATION. Complete Labs and/or images reviewed: Labs reviewed by me Assessment/Plan Assessment/Plan -acute hypoxic respiratory failure -acute systolic heart failure with ejection fraction 20% -questionable cardiac mass -diabetes mellitus -dyslipidemia -primary hypertension -hematuria -probable underlying CKD stage IIIB -pneumonia Plan: Events: Continuing current management. The patient will have left heart catheterization today. -O2 supplementation to keep saturation greater than 92% -continue guideline directed medical therapy for heart failure -continue statin -continue IV Rocephin and Diflucan -repeat labs in a.m. -PT consultation Continuing with Lasix 40 mg IV b.i.d.. Urology input appreciated Cardiology input appreciated This medical document was created using an electronic medical record system with [employer] computerized dictation system. Although this document has been carefully reviewed, there may still be some phonetic and typographical errors. These areas are purely typographical due to imperfections of the software programs, and do not reflect any compromise in the patient's medical care. Plan discussed with: Patient Date of Service: Aug 30, 2024 Billing Provider: SHERINE HERNÁNDEZ MD Common Visit Codes: [id number] INP/OBS CARE(HIGH) SHERINE HERNÁNDEZ MD Aug 30, 2024 11:16
[2024-08-30] MEDS: IODIXANOL 320MG/ML 100ML BTL IV ONE (11:46)
[2024-08-30] MEDS: fentaNYL CITRATE 100 MCG/2 ML VL ONE (11:53)
[2024-08-30] MEDS: VERAPAMIL 2.5MG/ML INJ 2ML VIAL IV ONE (11:53)
[2024-08-30] MEDS: HEPARIN SODIUM (PORCINE) 5000 UNITS/ML 1ML VIAL ONE (11:53)
[2024-08-30] MEDS: ANGIOMAX 250 MG VIAL IV ONE (11:53)
[2024-08-30] MEDS: MIDAZOLAM HCL 2MG/2ML 2ml VIAL (1mg/ml) ONE (11:54)
[2024-08-30] MEDS: LIDOCAINE 2%HCL (LOCAL ANESTH.) INJ 20ML MDV ONE (11:59)
--- NOTE | 2024-08-30 16:42 | DVHOP2 ---
Operative Report Report Details Date: 08/30/24 Preop Diagnosis: CAD Postop Diagnosis: Three-vessel coronary artery disease. Cardiomyopathy. Surgeon: Gold Taylor MD Anesthesiologist: Conscious sedation Anesthesia: Mac, Local Consent: The patient was informed of the risks and benefits of the procedure. These include but are not limited to complications of anesthesia, postoperative infection, incomplete relief of symptoms, recurrence of symptoms, damage to blood vessels, nerves and tendons, deep venous thrombosis, pulmonary embolism and possible need for repeat surgery in the future. Complications: No complications Estimated Blood Loss: 5 cc Findings: Triple-vessel disease. Cardiomyopathy. Indications for Surgery: Chest pain Name of Procedure Performed Left heart catheterization bilateral cine coronary angiography. Left ventriculography. Procedure Details Procedure Details: Local anesthesia 2% lidocaine to the right wrist full informed consent obtained patient was prepped and draped in usual fashion followed by an attempted placement of a catheter into radial artery. Because of the limited blood return we encouraged to take an angiographic evaluation of the radial artery. There was a very small radial artery at the forearm. The ulnar artery seems to be the dominant vessel. We placed a op site dressing over the radial catheter for ultrasound and fluoroscopic guidance we gained access into femoral artery and placed a six Tamazight sheath through which diagnostic Shabnam catheters were then used to cannulate both arm and left coronary ostia and a pigtail catheter was used for ventriculography. Hemodynamics: Aortic blood pressure was 110/70. End-diastolic pressure was 14. There was no gradient across the aortic valve on pullback. Coronary anatomy: The RCA is occluded proximally. There are intracoronary collaterals to the mid RCA. There was a very large distal RCA and posterolateral branches as well as PDA. Left main is large and normal. Distal % stenosis. The LAD is a large vessel it has a 95% stenosis at its mid section. Diagonals are free of significant disease. The circumflex is large. It is nondominant however it gives off a large marginal branch that is occluded proximally. Has faint collateralization it supplies the lateral wall inferiorly. Ventriculography in the HEDRICK projection revealed an EF of about 35% with global hypokinesis especially of the mid inferior wall. Impression: Decreased left ventricular ejection fraction. [place] left ventricular end-diastolic pressure was. Triple-vessel coronary artery disease. Recommendations we will refer to coronary bypass surgery. Condition Guarded Disposition Still a Patient Visit Coding Cardiology Date of Service: Aug 30, 2024 Billing Provider: GOLD TAYLOR Sr., MD Cardiology Common Codes: PROCEDURE ONLY Cardiology Procedure Codes: [id number] VESSEL W/I VASC FAM, [id number] ADD CORONARY BRANCH, [id number] ADD COR ART/BRNCH/GRFT, [id number] HEART CATH W/INTRA INJ GOLD TAYLOR Sr., MD Aug 30, 2024 14:45 GOLD TAYLOR Sr., MD Aug 30, 2024 16:42
[2024-08-31] VITALS (8 sets, daily range): BP systolic 110–143; BP diastolic 53–78; PULSE 63–79; RESP 17–20; TEMP 96.2–98; O2SAT 94–98
--- NOTE | 2024-08-31 12:00 | DVHPN2 ---
Subjective s/p pci Reviewed: Care Plan, H&P, Labs, Medications, Previous Orders, Radiology Changes from previous H/P or p: No Changes General: Per HPI ENT: No Ear pain, No Ear discharge, No Nose pain, No Nose discharge, No Nose congestion, No Mouth pain, No Mouth swelling, No Throat pain, No Throat swelling, No Other Cardiovascular: No Chest Pain, No Palpitations, No Orthopnea, No Paroxysmal Noc. Dyspnea, No Edema, No Lt Headedness, No Other Respiratory: No Cough, No Dry; Shortness of breath; No SOB with excertion, No Wheezing, No Hemoptysis, No Pleuritic Pain, No Sputum; Other (SOB at rest) Gastrointestinal: No Nausea, No Vomiting, No Abdominal Pain, No Diarrhea, No Constipation, No Melena, No Hematochezia, No Other Genitourinary: No Dysuria, No Frequency, No Incontinence, No Hematuria, No Retention, No Other Musculoskeletal: No other, No neck pain, No shoulder pain, No arm pain, No back pain, No hand pain, No leg pain, No foot pain Skin: No Rash, No Lesions, No Jaundice, No Bruising, No Other Objective Vitals Vital Signs Date Time Temp Pulse Resp B/P (MAP) Pulse Ox O2 Delivery O2 Flow Rate FiO2 08/31/24 10:00 78 108/60 08/31/24 08:56 97.7 17 96 97.7 08/31/24 08:00 Room Air* 0 21 Intake/Output Intake and Output 08/31/24 07:00 Intake Total 1060 ml Output Total 800 ml Balance 260 ml Intake Oral 1060 ml Output Urine Total 800 ml Exam Denies chest pain, shortness of breath No cardiac events reported Sinus rhythm General Appearance: Alert, Oriented X3, Cooperative, No acute distress HEENT: Atraumatic, PERRLA, EOMI, Mucous membr. moist/pink Lungs: Clear to auscultation, Normal air movement Cardiovascular: Regular rate, Normal S1, Normal S2, No murmurs, Gallops, Rubs Abdomen: Normal bowel sounds, Soft, No tenderness Neuro: Cranial nerves 3-12 NL Skin: Dry, Intact Psych/Mental Status: Mental status NL Medications Current Medications Medications Dose Ordered Sig/Aliya Route Start Time Stop Time Status Last Admin Dose Admin Aspirin 81 mg DAILY PO 08/23/24 10:00 08/31/24 09:01 81 MG Hydralazine HCl 10 mg Q6HP PRN IV 08/22/24 23:30 Sodium Chloride 10 ml Q8HR IV 08/23/24 06:00 08/31/24 06:00 10 ML Acetaminophen/ Hydrocodone Bitart 1 tab Q4HP PRN PO 08/22/24 23:30 08/29/24 21:30 1 TAB Ondansetron HCl 4 mg Q4HP PRN IV 08/22/24 23:30 Docusate Sodium 100 mg BIDPRN PRN PO 08/22/24 23:30 Acetaminophen 650 mg Q6HP PRN PO 08/22/24 23:30 Nitroglycerin 0.4 mg Q5MINP PRN SL 08/22/24 23:30 Morphine Sulfate 2 mg Q30M PRN IV 08/22/24 23:30 Ceftriaxone Sodium 50 ml @ 100 mls/hr DAILY@09 IV 08/23/24 09:00 08/31/24 09:02 100 MLS/HR Carvedilol 6.25 mg Q12HR PO 08/24/24 22:00 08/31/24 09:00 6.25 MG Spironolactone 12.5 mg DAILY PO 08/25/24 10:00 08/31/24 09:01 12.5 MG Valsartan 40 mg DAILY PO 08/25/24 10:00 08/31/24 09:00 40 MG Diagnostic Test (Pha) 1 strip ACHS 08/26/24 17:00 08/31/24 11:28 1 STRIP Insulin Human Regular ACHS SC 08/26/24 17:00 08/31/24 11:28 3 UNITS Dextrose 50 ml UD PRN IV 08/26/24 15:45 Furosemide 20 mg DAILY IV 08/28/24 10:00 08/31/24 09:01 20 MG Fluconazole 100 mg DAILY PO 08/28/24 10:00 08/31/24 09:01 100 MG Melatonin 10 mg HS PRN PO 08/28/24 23:00 08/29/24 21:29 10 MG Acetylcysteine 600 mg BID PO 08/30/24 10:00 08/31/24 22:00 08/31/24 09:09 600 MG Laboratory Results Laboratory Tests 08/30/24 05:30 Urinalysis Test 08/26/24 15:05 Urine Color Light-yellow (Yellow) Urine Clarity Clear (Clear) Urine pH 5.5 (5.0-9.0) Urine Specific [place] 1.018 (1.001-1.035) Urine Protein Trace (Negative) H Urine Ketones Negative (Negative) Urine Blood 3+ /uL (Negative) H Urine Nitrite Negative (Negative) Urine Bilirubin Negative (Negative) Urine Urobilinogen Normal mg/dL (Negative) Urine Leukocyte Esterase 1+ /uL (Negative) Urine RBC 65 /hpf (0 - 3) Urine Microscopic WBC 16 /HPF (0-3) H Urine Squamous Epithelial Cells Few /hpf (<5) Urine Bacteria Few /hpf (None Seen) H Urine Mucus Few (None Seen) Urine Yeast (Budding) Occasional /hpf (None Urine Glucose 4+ mg/dL (Normal) H Microbiology Microbiology Date/Time Source Procedure Growth Status 08/29/24 10:53 Voided Urine Urine Culture - Final Enterococcus faecalis Complete 08/22/24 23:51 Blood Blood Culture - Final NO GROWTH AFTER 5 DAYS OF INCUBATION. Complete Assessment/Plan Assessment/Plan Non ST-elevation myocardial infarction Acute on chronic decompensated HFrEF, NYHA class III, newly diagnosed Rule out coronary artery disease Moderate tricuspid regurgitation Hypertensive urgency, resolved Type II diabetes mellitus Dyslipidemia Acute kidney injury Tobacco use Plan/Recommendation (Dr. Taylor) s/p left heart catheterization - Triple-vessel coronary artery disease. Recommendations we will refer to [facility] coronary bypass surgery. This medical document was created using an electronic medical record system with voice recognition software and computerized dictation system. Although this document has been carefully reviewed, there might still be some phonetic and typographical errors. Occasional wrong-word or ``sound-alike substitutions may have occurred due to the inherent limitations of voice recognition software. These areas are purely typographical due to imperfections of the software programs and do not reflect any compromise in the patient's medical care. Please read the chart carefully and recognize, using context, where these substitutions have occurred. Plan discussed with: Patient, Spouse, Other Plan discussed with: Patient, Other (RN) Date of Service: Aug 31, 2024 Billing Provider: GOLD TAYLOR Sr., MD Common Visit Codes: CONSULT ONLY JAMES ROBB Aug 31, 2024 12:00
--- NOTE | 2024-08-31 23:04 | DVHPN2 ---
Subjective The patient is seen and examined at bedside. No complaint today. Patient said his shortness for breath improved. Reviewed: Care Plan, H&P, Labs, Medications, Previous Orders, Radiology Changes from previous H/P or p: No Changes General: Per HPI ENT: No Ear pain, No Ear discharge, No Nose pain, No Nose discharge, No Nose congestion, No Mouth pain, No Mouth swelling, No Throat pain, No Throat swelling, No Other Cardiovascular: No Chest Pain, No Palpitations, No Orthopnea, No Paroxysmal Noc. Dyspnea, No Edema, No Lt Headedness, No Other Respiratory: No Cough, No Dry; Shortness of breath; No SOB with excertion, No Wheezing, No Hemoptysis, No Pleuritic Pain, No Sputum; Other (SOB at rest) Gastrointestinal: No Nausea, No Vomiting, No Abdominal Pain, No Diarrhea, No Constipation, No Melena, No Hematochezia, No Other Genitourinary: No Dysuria, No Frequency, No Incontinence, No Hematuria, No Retention, No Other Musculoskeletal: No other, No neck pain, No shoulder pain, No arm pain, No back pain, No hand pain, No leg pain, No foot pain Skin: No Rash, No Lesions, No Jaundice, No Bruising, No Other Objective Vitals Vital Signs Date Time Temp Pulse Resp B/P (MAP) Pulse Ox O2 Delivery O2 Flow Rate FiO2 08/31/24 22:45 79 106/58 08/31/24 20:00 18 Room Air* 0 21 08/31/24 17:00 96.2 95 96.2 Intake/Output Intake and Output 08/31/24 07:00 Intake Total 1060 ml Output Total 800 ml Balance 260 ml Intake Oral 1060 ml Output Urine Total 800 ml General Appearance: Alert, Oriented X3, Cooperative, No acute distress HEENT: Atraumatic, PERRLA, EOMI, Mucous membr. moist/pink Lungs: Clear to auscultation, Normal air movement Cardiovascular: Regular rate, Normal S1, Normal S2, No murmurs, Gallops, Rubs Abdomen: Normal bowel sounds, Soft, No tenderness Neuro: Cranial nerves 3-12 NL Skin: Dry, Intact Psych/Mental Status: Mental status NL Medications Current Medications Medications Dose Ordered Sig/Aliya Route Start Time Stop Time Status Last Admin Dose Admin Aspirin 81 mg DAILY PO 08/23/24 10:00 08/31/24 09:01 81 MG Hydralazine HCl 10 mg Q6HP PRN IV 08/22/24 23:30 Sodium Chloride 10 ml Q8HR IV 08/23/24 06:00 08/31/24 21:58 10 ML Acetaminophen/ Hydrocodone Bitart 1 tab Q4HP PRN PO 08/22/24 23:30 08/29/24 21:30 1 TAB Ondansetron HCl 4 mg Q4HP PRN IV 08/22/24 23:30 Docusate Sodium 100 mg BIDPRN PRN PO 08/22/24 23:30 Acetaminophen 650 mg Q6HP PRN PO 08/22/24 23:30 Nitroglycerin 0.4 mg Q5MINP PRN SL 08/22/24 23:30 Morphine Sulfate 2 mg Q30M PRN IV 08/22/24 23:30 Ceftriaxone Sodium 50 ml @ 100 mls/hr DAILY@09 IV 08/23/24 09:00 08/31/24 09:02 100 MLS/HR Carvedilol 6.25 mg Q12HR PO 08/24/24 22:00 08/31/24 21:45 6.25 MG Spironolactone 12.5 mg DAILY PO 08/25/24 10:00 08/31/24 09:01 12.5 MG Valsartan 40 mg DAILY PO 08/25/24 10:00 08/31/24 09:00 40 MG Diagnostic Test (Pha) 1 strip ACHS 08/26/24 17:00 08/31/24 21:59 1 STRIP Insulin Human Regular ACHS SC 08/26/24 17:00 08/31/24 22:01 3 UNITS Dextrose 50 ml UD PRN IV 08/26/24 15:45 Furosemide 20 mg DAILY IV 08/28/24 10:00 08/31/24 09:01 20 MG Fluconazole 100 mg DAILY PO 08/28/24 10:00 08/31/24 09:01 100 MG Melatonin 10 mg HS PRN PO 08/28/24 23:00 08/29/24 21:29 10 MG Laboratory Results Laboratory Tests 08/30/24 05:30 Urinalysis Test 08/26/24 15:05 Urine Color Light-yellow (Yellow) Urine Clarity Clear (Clear) Urine pH 5.5 (5.0-9.0) Urine Specific [place] 1.018 (1.001-1.035) Urine Protein Trace (Negative) H Urine Ketones Negative (Negative) Urine Blood 3+ /uL (Negative) H Urine Nitrite Negative (Negative) Urine Bilirubin Negative (Negative) Urine Urobilinogen Normal mg/dL (Negative) Urine Leukocyte Esterase 1+ /uL (Negative) Urine RBC 65 /hpf (0 - 3) Urine Microscopic WBC 16 /HPF (0-3) H Urine Squamous Epithelial Cells Few /hpf (<5) Urine Bacteria Few /hpf (None Seen) H Urine Mucus Few (None Seen) Urine Yeast (Budding) Occasional /hpf (None Urine Glucose 4+ mg/dL (Normal) H Microbiology Microbiology Date/Time Source Procedure Growth Status 08/29/24 10:53 Voided Urine Urine Culture - Final Enterococcus faecalis Complete 08/22/24 23:51 Blood Blood Culture - Final NO GROWTH AFTER 5 DAYS OF INCUBATION. Complete Labs and/or images reviewed: Labs reviewed by me Assessment/Plan Assessment/Plan -acute hypoxic respiratory failure -acute systolic heart failure with ejection fraction 20% -questionable cardiac mass -CAD with multivessel disease. -diabetes mellitus -dyslipidemia -primary hypertension -hematuria -probable underlying CKD stage IIIB -pneumonia Plan: Events: Continuing current management. The patient will have left heart catheterization today. -O2 supplementation to keep saturation greater than 92% -continue guideline directed medical therapy for heart failure -continue statin -continue IV Rocephin and Diflucan -repeat labs in a.m. -PT consultation Continuing with Lasix 40 mg IV b.i.d.. Urology input appreciated Cardiology input appreciated Will initiate transfer to higher level of care for CABG per senior web services developer recommendation. DW son in length regarding to plan of care and transfer plan to [facility] This medical document was created using an electronic medical record system with [employer] direct computerized dictation system. Although this document has been carefully reviewed, there may still be some phonetic and typographical errors. These areas are purely typographical due to imperfections of the software programs, and do not reflect any compromise in the patient's medical care. Plan discussed with: Patient, Spouse, Son Date of Service: Aug 31, 2024 Billing Provider: SHERINE HERNÁNDEZ MD Common Visit Codes: [id number] INP/OBS CARE(HIGH) SHERINE HERNÁNDEZ MD Aug 31, 2024 23:04
--- NOTE | 2024-08-31 23:55 | DVHPN2 ---
Consult Progress Note Subjective Other Systems: Patient was seen and evaluated in follow-up. Patient is S/p PCI. Patient pending HLOC transfer. BS are in the 130's. Telemetry reviewed. Objective vital signs Vital Sign Date Time Temp Pulse Resp B/P (MAP) Pulse Ox O2 Delivery O2 Flow Rate FiO2 08/31/24 21:45 76 116/53 08/31/24 20:00 18 Room Air* 0 21 08/31/24 17:00 96.2 95 96.2 Total Intake and Output 08/30/24 08/30/24 08/31/24 15:00 23:00 07:00 Intake Total 410 ml 650 ml Output Total 250 ml 550 ml Balance 160 ml 100 ml medications Current Medications Medications Dose Ordered Sig/Aliya Route Start Time Stop Time Status Last Admin Dose Admin Aspirin 81 mg DAILY PO 08/23/24 10:00 08/31/24 09:01 81 MG Hydralazine HCl 10 mg Q6HP PRN IV 08/22/24 23:30 Sodium Chloride 10 ml Q8HR IV 08/23/24 06:00 08/31/24 14:30 10 ML Acetaminophen/ Hydrocodone Bitart 1 tab Q4HP PRN PO 08/22/24 23:30 08/29/24 21:30 1 TAB Ondansetron HCl 4 mg Q4HP PRN IV 08/22/24 23:30 Docusate Sodium 100 mg BIDPRN PRN PO 08/22/24 23:30 Acetaminophen 650 mg Q6HP PRN PO 08/22/24 23:30 Nitroglycerin 0.4 mg Q5MINP PRN SL 08/22/24 23:30 Morphine Sulfate 2 mg Q30M PRN IV 08/22/24 23:30 Ceftriaxone Sodium 50 ml @ 100 mls/hr DAILY@09 IV 08/23/24 09:00 08/31/24 09:02 100 MLS/HR Carvedilol 6.25 mg Q12HR PO 08/24/24 22:00 08/31/24 21:45 6.25 MG Spironolactone 12.5 mg DAILY PO 08/25/24 10:00 08/31/24 09:01 12.5 MG Valsartan 40 mg DAILY PO 08/25/24 10:00 08/31/24 09:00 40 MG Diagnostic Test (Pha) 1 strip ACHS 08/26/24 17:00 08/31/24 17:04 1 STRIP Insulin Human Regular ACHS SC 08/26/24 17:00 08/31/24 17:04 2 UNITS Dextrose 50 ml UD PRN IV 08/26/24 15:45 Furosemide 20 mg DAILY IV 08/28/24 10:00 08/31/24 09:01 20 MG Fluconazole 100 mg DAILY PO 08/28/24 10:00 08/31/24 09:01 100 MG Melatonin 10 mg HS PRN PO 08/28/24 23:00 08/29/24 21:29 10 MG Acetylcysteine 600 mg BID PO 08/30/24 10:00 08/31/24 22:00 08/31/24 09:09 600 MG Examination: GENERAL:Normal, HEENT:Normal, NECK:Normal, LUNGS:Normal, CVS:Normal, ABDOMEN:Normal, MSK:Normal, SKIN:Normal, NEURO:Normal laboratory and microbiology Laboratory Tests 08/30/24 05:30 Test 08/30/24 05:30 Range/Units Serum Glucose 150 H 74-106 mg/dL Problem List/Assessment/Plan Problem List/Assessment/Plan Non ST-elevation myocardial infarction. Acute on chronic decompensated HFrEF, NYHA class III, newly diagnosed . Rule out coronary artery disease. Moderate tricuspid regurgitation. Hypertensive urgency, resolved. Type II diabetes mellitus. Dyslipidemia. Acute kidney injury. Tobacco use. Plan/Recommendation Continued all current supportive medical care. Patient has been seen by Rae Morelos NP on my behalf, her and I discussed the plan with the patient. s/p left heart catheterization --Decreased left ventricular ejection fraction. [place] left ventricular end-diastolic pressure was. Triple-vessel coronary artery disease. Recommendations we will refer to [facility] coronary bypass surgery. Additional plan as per the hospital course. Plan discussed with: Patient Dietary Evaluation Review Comments: 1) Add cardiac restriction to 60g CCHO diet 2) Encourage optimal beverage intake. Continue IV hydration. 3) F/u with cardiology and nephrology 4) Continue to monitor I&O, labs, and skin integrity Expected Outcomes/Goals: 1) appetite and labs to improve 2) f/u in 3-5 days Date of Service: Aug 31, 2024 Billing Provider: NILDA HOLLEY MD Cardiology Common Codes: [id number] INP/OBS CARE (High) Cardiology Consultation Codes: [id number] CONSULT <45MIN NILDA HOLLEY MD Aug 31, 2024 22:03
[2024-09-01 08:00] VITALS: PULSE 80; RESP 17; O2SAT 97
--- NOTE | 2024-09-01 08:14 | DVHPN2 ---
Subjective s/p pci Reviewed: Care Plan, H&P, Labs, Medications, Previous Orders, Radiology Changes from previous H/P or p: No Changes General: Per HPI ENT: No Ear pain, No Ear discharge, No Nose pain, No Nose discharge, No Nose congestion, No Mouth pain, No Mouth swelling, No Throat pain, No Throat swelling, No Other Cardiovascular: No Chest Pain, No Palpitations, No Orthopnea, No Paroxysmal Noc. Dyspnea, No Edema, No Lt Headedness, No Other Respiratory: No Cough, No Dry; Shortness of breath; No SOB with excertion, No Wheezing, No Hemoptysis, No Pleuritic Pain, No Sputum; Other (SOB at rest) Gastrointestinal: No Nausea, No Vomiting, No Abdominal Pain, No Diarrhea, No Constipation, No Melena, No Hematochezia, No Other Genitourinary: No Dysuria, No Frequency, No Incontinence, No Hematuria, No Retention, No Other Musculoskeletal: No other, No neck pain, No shoulder pain, No arm pain, No back pain, No hand pain, No leg pain, No foot pain Skin: No Rash, No Lesions, No Jaundice, No Bruising, No Other Objective Vitals Vital Signs Date Time Temp Pulse Resp B/P (MAP) Pulse Ox O2 Delivery O2 Flow Rate FiO2 08/31/24 22:45 79 106/58 08/31/24 21:00 97.8 18 98 97.8 08/31/24 20:00 Room Air* 0 21 Intake/Output Intake and Output 09/01/24 07:00 Intake Total 1464 ml Output Total 1025 ml Balance 439 ml Intake Oral 828 ml Tube Feeding 636 ml Output Urine Total 725 ml Stool Total 300 ml Exam Denies chest pain, shortness of breath No cardiac events reported Sinus rhythm General Appearance: Alert, Oriented X3, Cooperative, No acute distress HEENT: Atraumatic, PERRLA, EOMI, Mucous membr. moist/pink Lungs: Clear to auscultation, Normal air movement Cardiovascular: Regular rate, Normal S1, Normal S2, No murmurs, Gallops, Rubs Abdomen: Normal bowel sounds, Soft, No tenderness Neuro: Cranial nerves 3-12 NL Skin: Dry, Intact Psych/Mental Status: Mental status NL Medications Current Medications Medications Dose Ordered Sig/Aliya Route Start Time Stop Time Status Last Admin Dose Admin Aspirin 81 mg DAILY PO 08/23/24 10:00 08/31/24 09:01 81 MG Hydralazine HCl 10 mg Q6HP PRN IV 08/22/24 23:30 Sodium Chloride 10 ml Q8HR IV 08/23/24 06:00 09/01/24 06:07 10 ML Acetaminophen/ Hydrocodone Bitart 1 tab Q4HP PRN PO 08/22/24 23:30 08/29/24 21:30 1 TAB Ondansetron HCl 4 mg Q4HP PRN IV 08/22/24 23:30 Docusate Sodium 100 mg BIDPRN PRN PO 08/22/24 23:30 Acetaminophen 650 mg Q6HP PRN PO 08/22/24 23:30 Nitroglycerin 0.4 mg Q5MINP PRN SL 08/22/24 23:30 Morphine Sulfate 2 mg Q30M PRN IV 08/22/24 23:30 Ceftriaxone Sodium 50 ml @ 100 mls/hr DAILY@09 IV 08/23/24 09:00 08/31/24 09:02 100 MLS/HR Carvedilol 6.25 mg Q12HR PO 08/24/24 22:00 08/31/24 21:45 6.25 MG Spironolactone 12.5 mg DAILY PO 08/25/24 10:00 08/31/24 09:01 12.5 MG Valsartan 40 mg DAILY PO 08/25/24 10:00 08/31/24 09:00 40 MG Diagnostic Test (Pha) 1 strip ACHS 08/26/24 17:00 09/01/24 06:05 1 STRIP Insulin Human Regular ACHS SC 08/26/24 17:00 09/01/24 06:06 2 UNITS Dextrose 50 ml UD PRN IV 08/26/24 15:45 Furosemide 20 mg DAILY IV 08/28/24 10:00 08/31/24 09:01 20 MG Fluconazole 100 mg DAILY PO 08/28/24 10:00 08/31/24 09:01 100 MG Melatonin 10 mg HS PRN PO 08/28/24 23:00 08/29/24 21:29 10 MG Laboratory Results Laboratory Tests 08/30/24 05:30 Urinalysis Test 08/26/24 15:05 Urine Color Light-yellow (Yellow) Urine Clarity Clear (Clear) Urine pH 5.5 (5.0-9.0) Urine Specific [place] 1.018 (1.001-1.035) Urine Protein Trace (Negative) H Urine Ketones Negative (Negative) Urine Blood 3+ /uL (Negative) H Urine Nitrite Negative (Negative) Urine Bilirubin Negative (Negative) Urine Urobilinogen Normal mg/dL (Negative) Urine Leukocyte Esterase 1+ /uL (Negative) Urine RBC 65 /hpf (0 - 3) Urine Microscopic WBC 16 /HPF (0-3) H Urine Squamous Epithelial Cells Few /hpf (<5) Urine Bacteria Few /hpf (None Seen) H Urine Mucus Few (None Seen) Urine Yeast (Budding) Occasional /hpf (None Urine Glucose 4+ mg/dL (Normal) H Microbiology Microbiology Date/Time Source Procedure Growth Status 08/29/24 10:53 Voided Urine Urine Culture - Final Enterococcus faecalis Complete 08/22/24 23:51 Blood Blood Culture - Final NO GROWTH AFTER 5 DAYS OF INCUBATION. Complete Assessment/Plan Assessment/Plan Non ST-elevation myocardial infarction Acute on chronic decompensated HFrEF, NYHA class III, newly diagnosed Rule out coronary artery disease Moderate tricuspid regurgitation Hypertensive urgency, resolved Type II diabetes mellitus Dyslipidemia Acute kidney injury Tobacco use Plan/Recommendation (Dr. Taylor) The patient was rejected for surgery at [place]. Optimize pulmonary status and plan for angioplasty on Monday09/04/24. Plan discussed with patient. All questions were answered. This medical document was created using an electronic medical record system with voice recognition software and computerized dictation system. Although this document has been carefully reviewed, there might still be some phonetic and typographical errors. Occasional wrong-word or ``sound-alike substitutions may have occurred due to the inherent limitations of voice recognition software. These areas are purely typographical due to imperfections of the software programs and do not reflect any compromise in the patient's medical care. Please read the chart carefully and recognize, using context, where these substitutions have occurred. Plan discussed with: Patient, Spouse, Other Plan discussed with: Patient Date of Service: Sep 01, 2024 Billing Provider: GOLD TAYLOR Sr., MD Common Visit Codes: CONSULT ONLY JAMES ROBB Sep 01, 2024 08:14
[2024-09-01 08:52] VITALS: BP 123/59; PULSE 64; RESP 17; TEMP 97.8; O2SAT 94
[2024-09-01 12:52] VITALS: BP 115/62; PULSE 69; RESP 18; TEMP 97.6; O2SAT 98
[2024-09-01 17:01] VITALS: BP 120/65; PULSE 63; RESP 18; TEMP 98.2; O2SAT 98
[2024-09-01 20:00] VITALS: PULSE 75; RESP 16; O2SAT 97
[2024-09-01 21:00] VITALS: BP 138/67; PULSE 72; RESP 19; TEMP 97.5; O2SAT 95
--- NOTE | 2024-09-01 22:45 | DVHPN2 ---
Subjective The patient is seen and examined at bedside. No complaint today. Reviewed: Care Plan, H&P, Labs, Medications, Previous Orders, Radiology Changes from previous H/P or p: No Changes General: Per HPI ENT: No Ear pain, No Ear discharge, No Nose pain, No Nose discharge, No Nose congestion, No Mouth pain, No Mouth swelling, No Throat pain, No Throat swelling, No Other Cardiovascular: No Chest Pain, No Palpitations, No Orthopnea, No Paroxysmal Noc. Dyspnea, No Edema, No Lt Headedness, No Other Respiratory: No Cough, No Dry; Shortness of breath; No SOB with excertion, No Wheezing, No Hemoptysis, No Pleuritic Pain, No Sputum; Other (SOB at rest) Gastrointestinal: No Nausea, No Vomiting, No Abdominal Pain, No Diarrhea, No Constipation, No Melena, No Hematochezia, No Other Genitourinary: No Dysuria, No Frequency, No Incontinence, No Hematuria, No Retention, No Other Musculoskeletal: No other, No neck pain, No shoulder pain, No arm pain, No back pain, No hand pain, No leg pain, No foot pain Skin: No Rash, No Lesions, No Jaundice, No Bruising, No Other Objective Vitals Vital Signs Date Time Temp Pulse Resp B/P (MAP) Pulse Ox O2 Delivery O2 Flow Rate FiO2 09/01/24 21:58 72 138/67 09/01/24 21:00 97.5 19 95 97.5 09/01/24 08:00 Room Air* 0 21 Intake/Output Intake and Output 09/01/24 07:00 Intake Total 1464 ml Output Total 1025 ml Balance 439 ml Intake Oral 828 ml Tube Feeding 636 ml Output Urine Total 725 ml Stool Total 300 ml General Appearance: Alert, Oriented X3, Cooperative, No acute distress HEENT: Atraumatic, PERRLA, EOMI, Mucous membr. moist/pink Lungs: Clear to auscultation, Normal air movement Cardiovascular: Regular rate, Normal S1, Normal S2, No murmurs, Gallops, Rubs Abdomen: Normal bowel sounds, Soft, No tenderness Neuro: Cranial nerves 3-12 NL Skin: Dry, Intact Psych/Mental Status: Mental status NL Medications Current Medications Medications Dose Ordered Sig/Aliya Route Start Time Stop Time Status Last Admin Dose Admin Aspirin 81 mg DAILY PO 08/23/24 10:00 09/01/24 10:35 81 MG Hydralazine HCl 10 mg Q6HP PRN IV 08/22/24 23:30 Sodium Chloride 10 ml Q8HR IV 08/23/24 06:00 09/01/24 21:58 10 ML Acetaminophen/ Hydrocodone Bitart 1 tab Q4HP PRN PO 08/22/24 23:30 08/29/24 21:30 1 TAB Ondansetron HCl 4 mg Q4HP PRN IV 08/22/24 23:30 Docusate Sodium 100 mg BIDPRN PRN PO 08/22/24 23:30 Acetaminophen 650 mg Q6HP PRN PO 08/22/24 23:30 Nitroglycerin 0.4 mg Q5MINP PRN SL 08/22/24 23:30 Morphine Sulfate 2 mg Q30M PRN IV 08/22/24 23:30 Ceftriaxone Sodium 50 ml @ 100 mls/hr DAILY@09 IV 08/23/24 09:00 09/01/24 10:33 100 MLS/HR Carvedilol 6.25 mg Q12HR PO 08/24/24 22:00 09/01/24 21:58 6.25 MG Spironolactone 12.5 mg DAILY PO 08/25/24 10:00 09/01/24 10:36 12.5 MG Valsartan 40 mg DAILY PO 08/25/24 10:00 09/01/24 10:35 40 MG Diagnostic Test (Pha) 1 strip ACHS 08/26/24 17:00 09/01/24 22:03 1 STRIP Insulin Human Regular ACHS SC 08/26/24 17:00 09/01/24 16:56 2 UNITS Dextrose 50 ml UD PRN IV 08/26/24 15:45 Furosemide 20 mg DAILY IV 08/28/24 10:00 09/01/24 10:35 20 MG Fluconazole 100 mg DAILY PO 08/28/24 10:00 09/01/24 10:35 100 MG Melatonin 10 mg HS PRN PO 08/28/24 23:00 08/29/24 21:29 10 MG Laboratory Results Laboratory Tests 08/30/24 05:30 Urinalysis Test 08/26/24 15:05 Urine Color Light-yellow (Yellow) Urine Clarity Clear (Clear) Urine pH 5.5 (5.0-9.0) Urine Specific [place] 1.018 (1.001-1.035) Urine Protein Trace (Negative) H Urine Ketones Negative (Negative) Urine Blood 3+ /uL (Negative) H Urine Nitrite Negative (Negative) Urine Bilirubin Negative (Negative) Urine Urobilinogen Normal mg/dL (Negative) Urine Leukocyte Esterase 1+ /uL (Negative) Urine RBC 65 /hpf (0 - 3) Urine Microscopic WBC 16 /HPF (0-3) H Urine Squamous Epithelial Cells Few /hpf (<5) Urine Bacteria Few /hpf (None Seen) H Urine Mucus Few (None Seen) Urine Yeast (Budding) Occasional /hpf (None Urine Glucose 4+ mg/dL (Normal) H Microbiology Microbiology Date/Time Source Procedure Growth Status 08/29/24 10:53 Voided Urine Urine Culture - Final Enterococcus faecalis Complete 08/22/24 23:51 Blood Blood Culture - Final NO GROWTH AFTER 5 DAYS OF INCUBATION. Complete Labs and/or images reviewed: Labs reviewed by me Assessment/Plan Assessment/Plan -acute hypoxic respiratory failure -acute systolic heart failure with ejection fraction 20% -questionable cardiac mass -CAD with multivessel disease. -diabetes mellitus -dyslipidemia -primary hypertension -hematuria -probable underlying CKD stage IIIB -pneumonia Plan: Events: Continuing current management. The patient will have left heart catheterization today. -O2 supplementation to keep saturation greater than 92% -continue guideline directed medical therapy for heart failure -continue statin -continue IV Rocephin and Diflucan -repeat labs in a.m. -PT consultation Continuing with Lasix 40 mg IV b.i.d.. Urology input appreciated Cardiology input appreciated Waiting for transfer to higher level of care for CABG per onyx chip terrazzo worker recommendation. This medical document was created using an electronic medical record system with [employer] direct computerized dictation system. Although this document has been carefully reviewed, there may still be some phonetic and typographical errors. These areas are purely typographical due to imperfections of the software programs, and do not reflect any compromise in the patient's medical care. Plan discussed with: Patient, Spouse Date of Service: Sep 01, 2024 Billing Provider: SHERINE HERNÁNDEZ MD Common Visit Codes: [id number] INP/OBS CARE(HIGH) SHERINE HERNÁNDEZ MD Sep 01, 2024 22:45
--- NOTE | 2024-09-01 23:51 | DVHPN2 ---
Consult Progress Note Subjective Other Systems: Patient was seen and evaluated in follow up. Per CM, [facility] denied the patient for transfer. Planned for angioplasty on Monday09/04/24. BS remain WNL. Telemetry reviewed. Objective vital signs Vital Sign Date Time Temp Pulse Resp B/P (MAP) Pulse Ox O2 Delivery O2 Flow Rate FiO2 09/01/24 12:52 97.6 69 18 115/62 (79) 98 97.6 09/01/24 08:00 Room Air* 0 21 Total Intake and Output 08/31/24 08/31/24 09/01/24 14:59 22:59 06:59 Intake Total 1050 ml 414 ml Output Total 725 ml 300 ml Balance 325 ml 114 ml medications Current Medications Medications Dose Ordered Sig/Aliya Route Start Time Stop Time Status Last Admin Dose Admin Aspirin 81 mg DAILY PO 08/23/24 10:00 09/01/24 10:35 81 MG Hydralazine HCl 10 mg Q6HP PRN IV 08/22/24 23:30 Sodium Chloride 10 ml Q8HR IV 08/23/24 06:00 09/01/24 06:07 10 ML Acetaminophen/ Hydrocodone Bitart 1 tab Q4HP PRN PO 08/22/24 23:30 08/29/24 21:30 1 TAB Ondansetron HCl 4 mg Q4HP PRN IV 08/22/24 23:30 Docusate Sodium 100 mg BIDPRN PRN PO 08/22/24 23:30 Acetaminophen 650 mg Q6HP PRN PO 08/22/24 23:30 Nitroglycerin 0.4 mg Q5MINP PRN SL 08/22/24 23:30 Morphine Sulfate 2 mg Q30M PRN IV 08/22/24 23:30 Ceftriaxone Sodium 50 ml @ 100 mls/hr DAILY@09 IV 08/23/24 09:00 09/01/24 10:33 100 MLS/HR Carvedilol 6.25 mg Q12HR PO 08/24/24 22:00 09/01/24 10:36 6.25 MG Spironolactone 12.5 mg DAILY PO 08/25/24 10:00 09/01/24 10:36 12.5 MG Valsartan 40 mg DAILY PO 08/25/24 10:00 09/01/24 10:35 40 MG Diagnostic Test (Pha) 1 strip ACHS 08/26/24 17:00 09/01/24 11:43 1 STRIP Insulin Human Regular ACHS SC 08/26/24 17:00 09/01/24 11:43 3 UNITS Dextrose 50 ml UD PRN IV 08/26/24 15:45 Furosemide 20 mg DAILY IV 08/28/24 10:00 09/01/24 10:35 20 MG Fluconazole 100 mg DAILY PO 08/28/24 10:00 09/01/24 10:35 100 MG Melatonin 10 mg HS PRN PO 08/28/24 23:00 08/29/24 21:29 10 MG Examination: GENERAL:Normal, HEENT:Normal, NECK:Normal, LUNGS:Normal, CVS:Normal, ABDOMEN:Normal, MSK:Normal, SKIN:Normal, NEURO:Normal laboratory and microbiology Laboratory Tests 08/30/24 05:30 Test 08/30/24 05:30 Range/Units Serum Glucose 150 H 74-106 mg/dL Problem List/Assessment/Plan Problem List/Assessment/Plan Non ST-elevation myocardial infarction. Acute on chronic decompensated HFrEF, NYHA class III, newly diagnosed . Rule out coronary artery disease. Moderate tricuspid regurgitation. Hypertensive urgency, resolved. Type II diabetes mellitus. Dyslipidemia. Acute kidney injury. Tobacco use. Plan/Recommendation Continued all current supportive medical care. Patient has been seen by Rae Morelos NP on my behalf, her and I discussed the plan with the patient. The patient was rejected for surgery at [place]. Optimize pulmonary status and plan for angioplasty on Monday09/04/24. Plan discussed with patient. All questions were answered. Additional plan as per the hospital course. Plan discussed with: Patient Dietary Evaluation Review Comments: 1) Add cardiac restriction to 60g CCHO diet 2) Encourage optimal beverage intake. Continue IV hydration. 3) F/u with cardiology and nephrology 4) Continue to monitor I&O, labs, and skin integrity Expected Outcomes/Goals: 1) appetite and labs to improve 2) f/u in 3-5 days Date of Service: Sep 01, 2024 Billing Provider: NILDA HOLLEY MD Cardiology Common Codes: [id number] HOSP CARE([facility] NILDA HOLLEY MD Sep 01, 2024 14:57
[2024-09-02] VITALS (8 sets, daily range): BP systolic 111–143; BP diastolic 55–77; PULSE 66–82; RESP 16–19; TEMP 97–97.9; O2SAT 94–97
[2024-09-02 06:17] LABS: Basophils # (auto) 0 10 ^3/uL (0-0.2); Basophils % (auto) 0.6 % (0.0-2.0); Eosinophils # (auto) 0.3 10 ^3/uL (0-0.8); Eosinophils % (auto) 4.2 % (0.0-7.0); Hematocrit 38.8 % (41.0-53.0); Hemoglobin 13.6 g/dL (13.5-17.5); Lymphocytes # (auto) 1.7 10 ^3/uL (0.4-5.4); Lymphocytes % (auto) 22.1 % (10.0-50.0); Mean Corpuscular Hemoglobin 32.6 pg (28.0-32.0); Mean Corpuscular Volume 93.1 fL (80.0-100.0); Monocytes # (auto) 0.7 10 ^3/uL (0-1.3); Monocytes % (auto) 8.6 % (0.0-12.0); Neutrophils % (auto) 64.5 % (37.0-80.0); Platelet Count (auto) 165 10^3/uL (140-450); Red Blood Cells 4.16 10^6/uL (4.5-5.90); Red Cell Distribution Width 14.1 % (11.8-14.3); White Blood Cell 7.8 10^3/uL (4.4-10.8)
[2024-09-02 06:26] LABS: Chloride 106 mmol/L (98-107); Potassium 4.8 mmol/L (3.5-5.1); Sodium 138 mmol/L (136-145)
[2024-09-02 06:27] LABS: Anion Gap 8 (5-15); Calcium 9.7 mg/dL (8.7-10.4); Carbon Dioxide 24 mmol/L (20-31)
[2024-09-02 06:32] LABS: BUN/Creatinine Ratio 27.2 (10.0-20.0)
[2024-09-02 06:34] LABS: Blood Urea Nitrogen 46 mg/dL (9-23); Glucose 138 mg/dL (74-106)
--- NOTE | 2024-09-02 10:11 | DVHPN2 ---
Consult Progress Note Date Seen: Sep 02, 2024 Subjective Review of Systems: CVS:Normal, RESPIRATORY:Normal, NEURO:Normal Other Systems: Denies any cardiac symptoms Objective vital signs Vital Sign Date Time Temp Pulse Resp B/P (MAP) Pulse Ox O2 Delivery O2 Flow Rate FiO2 09/02/24 08:03 97.0 79 16 121/60 (80) 97 97.0 09/01/24 20:00 Room Air* 0 21 Total Intake and Output 09/01/24 09/01/24 09/02/24 15:00 23:00 07:00 Intake Total 650 ml 1630 ml 400 ml Output Total 1175 ml 450 ml Balance 650 ml 455 ml -50 ml medications Current Medications Medications Dose Ordered Sig/Aliya Route Start Time Stop Time Status Last Admin Dose Admin Aspirin 81 mg DAILY PO 08/23/24 10:00 09/01/24 10:35 81 MG Hydralazine HCl 10 mg Q6HP PRN IV 08/22/24 23:30 Sodium Chloride 10 ml Q8HR IV 08/23/24 06:00 09/01/24 21:58 10 ML Acetaminophen/ Hydrocodone Bitart 1 tab Q4HP PRN PO 08/22/24 23:30 08/29/24 21:30 1 TAB Ondansetron HCl 4 mg Q4HP PRN IV 08/22/24 23:30 Docusate Sodium 100 mg BIDPRN PRN PO 08/22/24 23:30 Acetaminophen 650 mg Q6HP PRN PO 08/22/24 23:30 Nitroglycerin 0.4 mg Q5MINP PRN SL 08/22/24 23:30 Morphine Sulfate 2 mg Q30M PRN IV 08/22/24 23:30 Ceftriaxone Sodium 50 ml @ 100 mls/hr DAILY@09 IV 08/23/24 09:00 09/01/24 10:33 100 MLS/HR Carvedilol 6.25 mg Q12HR PO 08/24/24 22:00 09/01/24 21:58 6.25 MG Spironolactone 12.5 mg DAILY PO 08/25/24 10:00 09/01/24 10:36 12.5 MG Valsartan 40 mg DAILY PO 08/25/24 10:00 09/01/24 10:35 40 MG Diagnostic Test (Pha) 1 strip ACHS 08/26/24 17:00 09/02/24 06:01 1 STRIP Insulin Human Regular ACHS SC 08/26/24 17:00 09/02/24 06:02 3 UNITS Dextrose 50 ml UD PRN IV 08/26/24 15:45 Furosemide 20 mg DAILY IV 08/28/24 10:00 09/01/24 10:35 20 MG Fluconazole 100 mg DAILY PO 08/28/24 10:00 09/01/24 10:35 100 MG Melatonin 10 mg HS PRN PO 08/28/24 23:00 08/29/24 21:29 10 MG Examination: LUNGS:Normal, CVS:Normal, NEURO:Normal laboratory and microbiology Laboratory Tests 09/02/24 04:37 Test 09/02/24 04:37 Range/Units Serum Glucose 138 H 74-106 mg/dL Problem List/Assessment/Plan Problem List/Assessment/Plan Non ST-elevation myocardial infarction Acute on chronic decompensated HFrEF, NYHA class III, newly diagnosed Coronary artery disease with multivessel disease awaiting CABG evaluation Ischemic cardiomyopathy Moderate tricuspid regurgitation Hypertensive urgency, resolved Type II diabetes mellitus Dyslipidemia Acute kidney injury Tobacco use Plan/Recommendation (Dr. Taylor) Transthoracic echocardiogram revealed an EF of 20% with severe global hypokinesis. Status post transesophageal echocardiogram with unremarkable structural findings. Ischemic work-up revealed coronary artery disease with multivessel disease involving the LAD, the RCA, and marginal branch. He was referred to [facility] for cardiothoracic evaluation. Conversation held in between Dr. Taylor and [facility] which advised for outpatient follow-up. This has been discussed in full detail with the patient, , and son over the phone. Copies of the echocardiogram and cardiac catheterization was provided to the patient. In the meantime, continue GDMT for HFrEF, monitor renal function closely. Continue dual-antiplatelet therapy and lipid-lowering agent. Follow-up with Cardiology within 1-2 weeks for discharge for referral to [facility]. There is no further cardiac work-up indicated at this time. Kindly call if in need to re-consult. Thank you for allowing us to care for this patient. This medical document was created using an electronic medical record system with voice recognition software and computerized dictation system. Although this document has been carefully reviewed, there might still be some phonetic and typographical errors. Occasional wrong-word or ``sound-alike substitutions may have occurred due to the inherent limitations of voice recognition software. These areas are purely typographical due to imperfections of the software programs and do not reflect any compromise in the patient's medical care. Please read the chart carefully and recognize, using context, where these substitutions have occurred. Plan discussed with: Patient, Other Dietary Evaluation Review Comments: 1) Add cardiac restriction to 60g CCHO diet 2) Encourage optimal beverage intake. Continue IV hydration. 3) F/u with cardiology and nephrology 4) Continue to monitor I&O, labs, and skin integrity Expected Outcomes/Goals: 1) appetite and labs to improve 2) f/u in 3-5 days Date of Service: Sep 02, 2024 Billing Provider: JOSE MACDONALD Cardiology Common Codes: [id number] HOSP CARE(High JOSE MACDONALD Sep 02, 2024 10:11
[2024-09-02] MEDS: CLOPIDOGREL BISULFATE 75 MG TAB PO ONE (11:02)
--- NOTE | 2024-09-02 12:08 | DVHPN2 ---
Subjective The patient is seen and examined at bedside. No complaint today. Reviewed: Care Plan, H&P, Labs, Medications, Previous Orders, Radiology Changes from previous H/P or p: No Changes General: Per HPI ENT: No Ear pain, No Ear discharge, No Nose pain, No Nose discharge, No Nose congestion, No Mouth pain, No Mouth swelling, No Throat pain, No Throat swelling, No Other Cardiovascular: No Chest Pain, No Palpitations, No Orthopnea, No Paroxysmal Noc. Dyspnea, No Edema, No Lt Headedness, No Other Respiratory: No Cough, No Dry; Shortness of breath; No SOB with excertion, No Wheezing, No Hemoptysis, No Pleuritic Pain, No Sputum; Other (SOB at rest) Gastrointestinal: No Nausea, No Vomiting, No Abdominal Pain, No Diarrhea, No Constipation, No Melena, No Hematochezia, No Other Genitourinary: No Dysuria, No Frequency, No Incontinence, No Hematuria, No Retention, No Other Musculoskeletal: No other, No neck pain, No shoulder pain, No arm pain, No back pain, No hand pain, No leg pain, No foot pain Skin: No Rash, No Lesions, No Jaundice, No Bruising, No Other Objective Vitals Vital Signs Date Time Temp Pulse Resp B/P (MAP) Pulse Ox O2 Delivery O2 Flow Rate FiO2 09/02/24 11:03 121/60 09/02/24 11:03 79 09/02/24 08:03 97.0 16 97 97.0 09/01/24 20:00 Room Air* 0 21 Intake/Output Intake and Output 09/02/24 07:00 Intake Total 2680 ml Output Total 1625 ml Balance 1055 ml Intake Oral 2630 ml IV Total 50 ml Output Urine Total 1625 ml General Appearance: Alert, Oriented X3, Cooperative, No acute distress HEENT: Atraumatic, PERRLA, EOMI, Mucous membr. moist/pink Lungs: Clear to auscultation, Normal air movement Cardiovascular: Regular rate, Normal S1, Normal S2, No murmurs, Gallops, Rubs Abdomen: Normal bowel sounds, Soft, No tenderness Neuro: Cranial nerves 3-12 NL Skin: Dry, Intact Psych/Mental Status: Mental status NL Medications Current Medications Medications Dose Ordered Sig/Aliya Route Start Time Stop Time Status Last Admin Dose Admin Aspirin 81 mg DAILY PO 08/23/24 10:00 09/02/24 11:04 81 MG Hydralazine HCl 10 mg Q6HP PRN IV 08/22/24 23:30 Sodium Chloride 10 ml Q8HR IV 08/23/24 06:00 09/01/24 21:58 10 ML Acetaminophen/ Hydrocodone Bitart 1 tab Q4HP PRN PO 08/22/24 23:30 08/29/24 21:30 1 TAB Ondansetron HCl 4 mg Q4HP PRN IV 08/22/24 23:30 Docusate Sodium 100 mg BIDPRN PRN PO 08/22/24 23:30 Acetaminophen 650 mg Q6HP PRN PO 08/22/24 23:30 Nitroglycerin 0.4 mg Q5MINP PRN SL 08/22/24 23:30 Morphine Sulfate 2 mg Q30M PRN IV 08/22/24 23:30 Carvedilol 6.25 mg Q12HR PO 08/24/24 22:00 09/02/24 11:03 6.25 MG Spironolactone 12.5 mg DAILY PO 08/25/24 10:00 Hold 09/01/24 10:36 12.5 MG Valsartan 40 mg DAILY PO 08/25/24 10:00 09/02/24 11:03 40 MG Diagnostic Test (Pha) 1 strip ACHS 08/26/24 17:00 09/02/24 11:52 1 STRIP Insulin Human Regular ACHS SC 08/26/24 17:00 09/02/24 06:02 3 UNITS Dextrose 50 ml UD PRN IV 08/26/24 15:45 Fluconazole 100 mg DAILY PO 08/28/24 10:00 09/02/24 11:02 100 MG Melatonin 10 mg HS PRN PO 08/28/24 23:00 08/29/24 21:29 10 MG Clopidogrel Bisulfate 75 mg DAILY PO 09/03/24 10:00 Empaglifozin 10 mg DAILY PO 09/03/24 10:00 Laboratory Results Laboratory Tests 09/02/24 04:37 Chemistry Test 09/02/24 04:37 Calcium Level 9.7 mg/dL (8.7-10.4) Urinalysis Test 08/26/24 15:05 Urine Color Light-yellow (Yellow) Urine Clarity Clear (Clear) Urine pH 5.5 (5.0-9.0) Urine Specific [place] 1.018 (1.001-1.035) Urine Protein Trace (Negative) H Urine Ketones Negative (Negative) Urine Blood 3+ /uL (Negative) H Urine Nitrite Negative (Negative) Urine Bilirubin Negative (Negative) Urine Urobilinogen Normal mg/dL (Negative) Urine Leukocyte Esterase 1+ /uL (Negative) Urine RBC 65 /hpf (0 - 3) Urine Microscopic WBC 16 /HPF (0-3) H Urine Squamous Epithelial Cells Few /hpf (<5) Urine Bacteria Few /hpf (None Seen) H Urine Mucus Few (None Seen) Urine Yeast (Budding) Occasional /hpf (None Urine Glucose 4+ mg/dL (Normal) H Microbiology Microbiology Date/Time Source Procedure Growth Status 08/29/24 10:53 Voided Urine Urine Culture - Final Enterococcus faecalis Complete 08/22/24 23:51 Blood Blood Culture - Final NO GROWTH AFTER 5 DAYS OF INCUBATION. Complete Labs and/or images reviewed: Labs reviewed by me Assessment/Plan Assessment/Plan -acute hypoxic respiratory failure -acute systolic heart failure with ejection fraction 20% -questionable cardiac mass -CAD with multivessel disease. -diabetes mellitus -dyslipidemia -primary hypertension -hematuria -probable underlying CKD stage IIIB -pneumonia Plan: Events: Continuing current management. status post left heart cath show 3 vessel disease.. -O2 supplementation to keep saturation greater than 92% -continue guideline directed medical therapy for heart failure -continue statin -continue IV Rocephin and Diflucan -repeat labs in a.m. -PT consultation Continuing with Lasix 40 mg IV b.i.d.. Urology input appreciated Cardiology input appreciated Per hand woven carpet and rug mender input today, patient will follow up with [facility] as outpatient for CABG evaluation. Will monitor kidney function discharge when improved. This medical document was created using an electronic medical record system with [employer] direct computerized dictation system. Although this document has been carefully reviewed, there may still be some phonetic and typographical errors. These areas are purely typographical due to imperfections of the software programs, and do not reflect any compromise in the patient's medical care. Plan discussed with: Patient, Spouse Date of Service: Sep 02, 2024 Billing Provider: SHERINE HERNÁNDEZ MD Common Visit Codes: [id number] INP/OBS CARE(HIGH) SHERINE HERNÁNDEZ MD Sep 02, 2024 12:08
[2024-09-02] MEDS: SPIRONOLACTONE 25 MG TAB PO ONE (12:46)
[2024-09-03 00:47] VITALS: BP 122/67; PULSE 64; RESP 16; TEMP 97.8; O2SAT 97
[2024-09-03 05:00] VITALS: BP 125/70; PULSE 66; RESP 16; TEMP 97.8; O2SAT 98
[2024-09-03 06:03] LABS: Basophils # (auto) 0.1 10 ^3/uL (0-0.2); Eosinophils # (auto) 0.4 10 ^3/uL (0-0.8); Eosinophils % (auto) 5.3 % (0.0-7.0); Hematocrit 38.6 % (41.0-53.0); Hemoglobin 13.4 g/dL (13.5-17.5); Lymphocytes # (auto) 1.7 10 ^3/uL (0.4-5.4); Lymphocytes % (auto) 22.5 % (10.0-50.0); Mean Corpuscular Hemoglobin 32.1 pg (28.0-32.0); Mean Corpuscular Hgb Conc. 34.7 g/dL (32.0-36.0); Mean Corpuscular Volume 92.5 fL (80.0-100.0); Monocytes # (auto) 0.7 10 ^3/uL (0-1.3); Neutrophils # (auto) 4.7 10 ^3/uL (1.6-8.6); Neutrophils % (auto) 62.2 % (37.0-80.0); Platelet Count (auto) 154 10^3/uL (140-450); Red Blood Cells 4.18 10^6/uL (4.5-5.90); White Blood Cell 7.6 10^3/uL (4.4-10.8)
[2024-09-03 06:19] LABS: Anion Gap 8 (5-15); Carbon Dioxide 24 mmol/L (20-31); Chloride 106 mmol/L (98-107); Potassium 4.6 mmol/L (3.5-5.1); Sodium 138 mmol/L (136-145)
[2024-09-03 06:20] LABS: Calcium 9.6 mg/dL (8.7-10.4)
[2024-09-03 06:25] LABS: BUN/Creatinine Ratio 29.4 (10.0-20.0); Blood Urea Nitrogen 45 mg/dL (9-23); Glucose 141 mg/dL (74-106)
[2024-09-03 08:00] VITALS: PULSE 74; PULSE 79; RESP 16; O2SAT 97
[2024-09-03 09:00] VITALS: BP 135/65; PULSE 65; RESP 18; TEMP 98; O2SAT 95
[2024-09-03] MEDS: EMPAGLIFLOZIN 10 MG TAB PO SCH (11:16)
[2024-09-03] MEDS: CLOPIDOGREL BISULFATE 75 MG TAB PO SCH (11:17)
[2024-09-03] MEDS: SPIRONOLACTONE 25 MG TAB PO SCH (11:20)
[2024-09-03 13:00] VITALS: BP 138/68; PULSE 74; RESP 18; TEMP 98.1; O2SAT 95
[2024-09-03] MEDS ORDERED: VALS1TAB57 PO (15:29)
[2024-09-03] MEDS ORDERED: CARV-216 PO (15:29)
[2024-09-03] MEDS ORDERED: EMPA1TAB PO (15:29)
[2024-09-03] MEDS ORDERED: CLOP75TA70 PO (15:29)
[2024-09-03] MEDS ORDERED: FLUC100T34 PO (15:29)
[2024-09-03] MEDS ORDERED: SPIR25TA PO (15:29)
[2024-09-03 16:36] VITALS: BP 130/64; PULSE 63; RESP 20; TEMP 98; O2SAT 96
--- NOTE | 2024-09-03 20:16 | DVHDS2 ---
Discharge Summary Date of Admission Aug 22, 2024 at 23:20 Date of Discharge: Sep 03, 2024 Labs/Diagnostic Data: Laboratory Results Test 09/03/24 18:11 09/03/24 04:37 08/30/24 05:30 08/26/24 15:05 POC Glucose 114 mg/dl (70-106) White Blood Count 7.6 10^3/uL (4.4-10.8) Red Blood Count 4.18 10^6/uL (4.5-5.90) Hemoglobin 13.4 g/dL (13.5-17.5) Hematocrit 38.6 % (41.0-53.0) Mean Corpuscular Volume 92.5 fL (80.0-100.0) Mean Corpuscular Hemoglobin 32.1 pg (28.0-32.0) Mean Corpuscular Hemoglobin Concent 34.7 g/dL (32.0-36.0) Red Cell Distribution Width 14.0 % (11.8-14.3) Platelet Count 154 10^3/uL (140-450) Mean Platelet Volume 8.0 fL (6.9-10.8) Neutrophils (%) (Auto) 62.2 % (37.0-80.0) Lymphocytes (%) (Auto) 22.5 % (10.0-50.0) Monocytes (%) (Auto) 9.0 % (0.0-12.0) Eosinophils (%) (Auto) 5.3 % (0.0-7.0) Basophils (%) (Auto) 1.0 % (0.0-2.0) Neutrophils # (Auto) 4.7 10 ^3/uL (1.6-8.6) Lymphocytes # (Auto) 1.7 10 ^3/uL (0.4-5.4) Monocytes # (Auto) 0.7 10 ^3/uL (0-1.3) Eosinophils # (Auto) 0.4 10 ^3/uL (0-0.8) Basophils # (Auto) 0.1 10 ^3/uL (0-0.2) Nucleated Red Blood Cells 0.0 % Sodium Level 138 mmol/L (136-145) Potassium Level 4.6 mmol/L (3.5-5.1) Chloride Level 106 mmol/L (98-107) Carbon Dioxide Level 24 mmol/L (20-31) Anion Gap 8 (5-15) Blood Urea Nitrogen 45 mg/dL (9-23) Creatinine 1.53 mg/dL (0.700-1.30) Glomerular Filtration Rate Calc 46 mL/min (>90) BUN/Creatinine Ratio 29.4 (10.0-20.0) Serum Glucose 141 mg/dL (74-106) Calcium Level 9.6 mg/dL (8.7-10.4) Prothrombin Time 10.7 sec (9.3-11.8) Prothrombin Time INR 1.01 (0.9-1.15) Activated Partial Thromboplast Time 27.9 SEC (24.5-34.5) Urine Color Light-yellow (Yellow) Urine Clarity Clear (Clear) Urine pH 5.5 (5.0-9.0) Urine Specific [place] 1.018 (1.001-1.035) Urine Protein Trace (Negative) Urine Ketones Negative (Negative) Urine Blood 3+ /uL (Negative) Urine Nitrite Negative (Negative) Urine Bilirubin Negative (Negative) Urine Urobilinogen Normal mg/dL (Negative) Urine Leukocyte Esterase 1+ /uL (Negative) Urine RBC 65 /hpf (0 - 3) Urine Microscopic WBC 16 /HPF (0-3) Urine Squamous Epithelial Cells Few /hpf (<5) Urine Bacteria Few /hpf (None Seen) Urine Mucus Few (None Seen) Urine Yeast (Budding) Occasional /hpf (None Urine Glucose 4+ mg/dL (Normal) Test 08/25/24 05:55 08/23/24 16:40 08/23/24 03:50 08/23/24 01:39 B-Type Natriuretic Peptide 210.88 pg/mL (0-100) Troponin I High Sensitivity 296 ng/L (</=54) Hemoglobin A1c 5.9 % A1C (<5.7) Magnesium Level 1.8 mg/dL (1.6-2.6) Total Bilirubin 1.4 mg/dL (0.2-1.0) Aspartate Amino Transferase (AST) 21 U/L (13-40) Alanine Aminotransferase (ALT) 22 U/L (7-40) Alkaline Phosphatase 56 U/L (46-116) Total Protein 6.9 g/dL (5.7-8.2) Albumin 4.4 g/dL (3.2-4.8) Triglycerides Level 159 mg/dL (< 150) Cholesterol Level 132 mg/dL (< 200) LDL Cholesterol 76 mg/dL (< 100) HDL Cholesterol 45 mg/dL (40-59) Free Prostate Specific Antigen 3.23 ng/mL (N/A) Percent Free Prostate Specific Ag 35.9 % (.) Prostate Specific Antigen Total 9.0 ng/mL (0.0-4.0) Thyroid Stimulating Hormone (TSH) 1.71 uIU/mL (0.55-4.78) Lactic Acid Level 1.8 mmol/L (0.4-2.0) Other Laboratory Tests 09/03/24 04:37 Condition at Discharge: Good Final Diagnosis/Problems List Anterior hypokinesis to akinesis Discharge Disposition: Still a Patient Discharge Instruct/Medications Diet: Cardiac 2g Na,low cholest Activity: No Restrictions, As Tolerated Discharge Statement: "Patient was advised to return to the ER or call 911 if any headaches, dizziness, shortness of breath, chest pain, abdominal pain, bleeding, fevers, or worsening of medical condition. Patient was counseled about treatment plan, medications, possible side effects, patientverbalized understanding. All questions were answered to the best of my ability. This discharge took greater then 30 minutes in planning, reviewing documentation, counseling the patient, and discussing with other team members." ASSESSMENT ASSESSMENT Assessment Anterior hypokinesis to akinesis LIBBY AYALA DO Sep 03, 2024 20:16
== END 2024-09-03 19:45 | disposition home or self-care (01) | DRG 871 ==
LOC: ER 20:21 → EDBD 20:21 → OVERFLOW 23:20 → TELE-WESTW 08-23 12:54
PROVIDERS: ADMIT Internal Medicine; ATTEND Internal Medicine
PROC: B24BZZ4 Ultrasonography of Heart with Aorta, Transesophageal (ICD-10-PCS; principal; 2024-08-28)
PROC: B211YZZ Fluoroscopy of Multiple Coronary Arteries using Other Contrast (ICD-10-PCS; 2024-08-30)
PROC: B215YZZ Fluoroscopy of Left Heart using Other Contrast (ICD-10-PCS; 2024-08-30)
PROC: 4A023N7 Measurement of Cardiac Sampling and Pressure, Left Heart, Percutaneous Approach (ICD-10-PCS; 2024-08-30)
DX: A41.50 Gram-negative sepsis, unspecified (principal); I21.4 Non-ST elevation (NSTEMI) myocardial infarction; I50.23 Acute on chronic systolic (congestive) heart failure; J96.01 Acute respiratory failure with hypoxia; J15.69 Pneumonia due to other Gram-negative bacteria; J15.9 Unspecified bacterial pneumonia; N17.9 Acute kidney failure, unspecified; I13.0 Hypertensive heart and chronic kidney disease with heart failure and stage 1 through stage 4 chronic kidney disease, or unspecified chronic kidney disease; I25.10 Atherosclerotic heart disease of native coronary artery without angina pectoris; I25.5 Ischemic cardiomyopathy; I16.0 Hypertensive urgency; E78.5 Hyperlipidemia, unspecified; R79.89 Other specified abnormal findings of blood chemistry; R31.0 Gross hematuria; I08.1 Rheumatic disorders of both mitral and tricuspid valves; R29.898 Other symptoms and signs involving the musculoskeletal system; E11.22 Type 2 diabetes mellitus with diabetic chronic kidney disease; N18.32 Chronic kidney disease, stage 3b; E11.65 Type 2 diabetes mellitus with hyperglycemia; Z86.73 Personal history of transient ischemic attack (TIA), and cerebral infarction without residual deficits; Z83.3 Family history of diabetes mellitus; Z80.8 Family history of malignant neoplasm of other organs or systems; Z79.84 Long term (current) use of oral hypoglycemic drugs; Z79.899 Other long term (current) drug therapy; Z95.1 Presence of aortocoronary bypass graft; Z98.61 Coronary angioplasty status
CPT/HCPCS: 36415; 70450; 71045; 74176; 76775; 80048; 80053; 80061; 81001; 82962; 83036; 83605; 83735; 83880; 84154; 84443; 84484; 85025; 85610; 85730; 87040; 87086; 87088; 87186; 93005; 93306; 93312; 93458; 94640; 96365; 96375; 97110; 97116; 97163; 97530; 99152; 99291; A4565; C1887; G0378; J0692; J1815; J2250; J2405; Q9967

== ENCOUNTER 2025-04-07 14:44 | Inpatient (IN) | payer MEDICARE ==
[~2025-04-07] VITALS: Ht 172.7 cm; Wt 63.0 kg
[~2025-04-07 14:44] MED LIST changes: -AMLO1TAB22 PO; -ASPI81CH43 PO; +CARV-216 PO; +CLOP75TA70 PO; +EMPA1TAB PO; +FLUC100T34 PO; -INSLANTI SC; -MET25T PO; -METF-370 PO; -NYS5LQ MT; +SPIR25TA PO; -TAMS0.4C39 PO; +TETR1TAB2 PO; +VALS1TAB57 PO
--- NOTE | 2025-04-07 14:58 | ED.PDOC ---
History of Present Illness HPI Comments HPI: 79M who is Persian speaking BIBA w. the c/c of generalized weakness. Ems report on the pt's calling them and speaking to them due, from the pt having generalized weakness, lethargic. Pt has also been having frequency of urination for an unknown number of days. Denies any other symptoms at this time. Patient has a known history of a facial droop and a stroke unchanged according to EMS per 's report. isn't available at bedside on initial evaluation. Per EMS, patient was ambulatory at the scene independently. 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 Allergies: NKDA HPI: Poor Historian. REVIEW OF SYSTEMS: CONSTITUTIONAL: Denies acute: fever, diaphoresis, chills, HEAD: Denies acute: headache, photophobia Eyes: Denies acute: Double vision, vision loss, eye pain, eye discharge. EARS: Denies acute: tinnitus, hearing loss, ear discharge, ear pain, THROAT: Denies acute: sore throat, swelling, difficulty swallowing , pain with swallowing, change in voice. NECK: Denies acute: neck pain, neck swelling, stiff neck. HEART: Denies acute : chest pain, palpitations, LUNGS: Denies acute: SOB, wheezing, cough, hemoptysis ABDOMEN: Denies acute: abdominal pain, Nausea, Vomiting, diarrhea, melena , hematemesis, hematochezia SKIN: Denies acute: rash, redness, lesions, itchiness. EXTREMITIES: Denies acute: calf pain, numbness, tingling, weakness, denies pain in extremity. Denies acute: Low back pain. Neuro: Denies acute: focal neurological deficit, motor or sensory focal neurological deficit, tremors, seizure like activity, dizziness, loss of bowel or bladder function, cauda equina like symptoms. : Denies acute: dysuria, hematuria, flank pain, PSYCH: Denies acute: hallucination, suicidal ideation, homicidal ideation. PHYSICAL EXAM: General: ----moderate----acute distress, awake and alert. Head: normocephalic, atraumatic. No raccoon's eyes, no rock sign. Neck: supple, trachea is midline, no swelling. Throat: Normal phonation. Eyes:, no erythema, no purulent discharge, no proptosis, no icterus. Heart: regular tachycardic, no significant murmur appreciated. Lungs: no apparent respiratory distress, No wheezing, no rhonchi, no crackles. No stridors Clear to auscultation bilaterally. Abdomen: non tender to palpation, non distended, soft, no guarding, no rebound, + bowel sounds. Neuro: Awake, Alert, Skin: no petechia, no purpura, no cyanosis, non-pale, not jaundice. Lower extremities: --no - Pitting edema no deformity, no focal swelling, no calf TTP. Makes eye contact. moves all four extremities. Face: History of chronic facial droop. ED COURSE: PER , LAST SEEN NORMAL WAS LAST NIGHT. DISCLAIMER: This medical document was created using an electronic medical record system with voice recognition software and computerized dictation system. Although this document has been carefully reviewed, there might still be some phonetic and typographical errors. Occasional wrong-word or "sound-alike" substitutions may have occurred due to the inherent limitations of voice recognition software. These areas are purely typographical due to imperfections of the software programs and do not reflect any compromise in the patient's medical care. Please read the chart carefully and recognize, using context, where these substitutions have occurred. Chief Complaint: Urinary Time Seen by MD: 15:00 Primary Care Provider: SYLVIA Reviewed Notes: Nurses Notes, Medications, Allergies Allergies: Coded Allergies: NO KNOWN ALLERGIES (Unverified , 03/09/14) Home Meds Active Scripts Valsartan (Valsartan) 80 Mg Tab, 40 MG PO DAILY for 30 Days, #15 TAB 3 Refills Prov:LIBBY AYALA DO 09/03/24 Spironolactone (Aldactone) 25 Mg Tab, 12.5 MG PO DAILY for 30 Days, #15 TAB 3 Refills Prov:AYALALIBBY Collins DO 09/03/24 Fluconazole (Fluconazole) 100 Mg Tab, 100 MG PO DAILY for 7 Days, #7 TAB 0 Refills Prov:AYALA,LIBBY T DO 09/03/24 Empagliflozin (Jardiance) 10 Mg Tab, 10 MG PO DAILY for 30 Days, #30 TAB 3 Refills Prov:LIBBY AYALA DO 09/03/24 Clopidogrel Bisulfate (CLOPIDOGREL) 75 Mg Tab, 75 MG PO DAILY for 30 Days, #30 TAB 3 Refills Prov:LIBBY AYALA DO 09/03/24 Carvedilol (COREG) 12.5 Mg Tab, 6.25 MG PO Q12HR for 30 Days, #30 TAB 3 Refills Prov:LIBBY AYALA DO 09/03/24 Reported Medications Tetrabenazine (Tetrabenazine) 12.5 Mg Tab, 12.5 MG PO BID, TAB 08/23/24 Lisinopril (Lisinopril) 20 Mg Tab, 1 TAB PO DAILY 08/22/23 Glipizide (Glipizide) 10 Mg Tab, 2 TAB PO BID 08/22/23 Pioglitazone Hydrochloride (PIOGLITAZONE HCL) 15 Mg Tab, 1 TAB PO DAILY 08/22/23 Metformin Hydrochloride (Metformin Hcl) 850 Mg Tab, 1 TAB PO TID 08/22/23 Pravastatin Sodium (PRAVACHOL TABLET) 20 Mg Tb, 20 MG PO DAILY 03/09/14 Lisinopril (ZESTRIL TABLET) 20 Mg Tb, 20 MG PO DAILY 03/09/14 Information Source: Patient, Emergency Med Personnel, Spouse Was a procedure done? Was a procedure done?: No EKG EKG : Pulse Rate (adult): 103 [place]: Normal Cardiac Rhythm: ST Block: None Hypertrophy: None ST: Normal Comments T Wave Inversion in lead I and AVL Differential Dx Considerations may include: DDX include CVA, TGA, cerebellar ischemia/infarct, carotid stenosis, Intracranial mass/infection/bleed, encephalopathy, electrolyte abnormality, thyroid disease, hydrocephalus, hypoglycemia, drug toxicity, cardiac arrhythmia, seizure, infection in the elderly, Hyperammonemia., kidney failure., sepsis. X-Ray, Labs, Meds, VS Vital Signs Date Time Temp Pulse Resp B/P (MAP) Pulse Ox O2 Delivery O2 Flow Rate FiO2 04/07/25 19:03 97 04/07/25 18:00 97 20 116/64 (81) 91 04/07/25 16:19 97 32 136/79 (98) 91 04/07/25 15:26 98.7 98 23 101/78 (86) 91 98.7 04/07/25 15:25 96 23 91 Room Air* 0 21 04/07/25 14:58 103 04/07/25 14:48 97.0 104 18 115/91 98 97.0 Lab Test 04/07/25 18:11 04/07/25 17:20 04/07/25 15:05 Range/Units Urine Color Light-yellow Yellow Urine Clarity Clear Clear Urine pH 5.0 5.0-9.0 Urine Specific [place] 1.031 1.001-1.035 Urine Protein Negative Negative Urine Ketones 2+ H Negative Urine Blood Negative Negative /uL Urine Nitrite Negative Negative Urine Bilirubin Negative Negative Urine Urobilinogen Normal Negative mg/dL Urine Leukocyte Esterase Negative Negative /uL Urine RBC <1 0 - 3 /hpf Urine Microscopic WBC 1 0-3 /HPF Urine Squamous Epithelial Cells Few <5 /hpf Urine Amorphous Crystals Few None Seen /hpf Urine Bacteria None seen None Seen /hpf Urine Mucus Few None Seen Urine Glucose 4+ H Normal mg/dL Lactic Acid Level 1.7 1.7 0.4-2.0 mmol/L White Blood Count 9.2 4.4-10.8 10^3/uL Red Blood Count 4.65 4.5-5.90 10^6/uL Hemoglobin 14.6 13.5-17.5 g/dL Hematocrit 42.3 41.0-53.0 % Mean Corpuscular Volume 91.0 80.0-100.0 fL Mean Corpuscular Hemoglobin 31.3 28.0-32.0 pg Mean Corpuscular Hemoglobin Concent 34.4 32.0-36.0 g/dL Red Cell Distribution Width 14.0 11.8-14.3 % Platelet Count 169 140-450 10^3/uL Mean Platelet Volume 7.7 6.9-10.8 fL Neutrophils (%) (Auto) 85.3 H 37.0-80.0 % Lymphocytes (%) (Auto) 9.2 L 10.0-50.0 % Monocytes (%) (Auto) 5.0 0.0-12.0 % Eosinophils (%) (Auto) 0.1 0.0-7.0 % Basophils (%) (Auto) 0.4 0.0-2.0 % Neutrophils # (Auto) 7.8 1.6-8.6 10 ^3/uL Lymphocytes # (Auto) 0.8 0.4-5.4 10 ^3/uL Monocytes # (Auto) 0.5 0-1.3 10 ^3/uL Eosinophils # (Auto) 0 0-0.8 10 ^3/uL Basophils # (Auto) 0 0-0.2 10 ^3/uL Nucleated Red Blood Cells 0.1 % Prothrombin Time 10.3 9.3-11.8 sec Prothrombin Time INR 0.97 0.9-1.15 Activated Partial Thromboplast Time 25.1 24.5-34.5 SEC Sodium Level 140 136-145 mmol/L Potassium Level 5.1 3.5-5.1 mmol/L Chloride Level 105 98-107 mmol/L Carbon Dioxide Level 18 L 20-31 mmol/L Anion Gap 17 H 5-15 Blood Urea Nitrogen 24 H 9-23 mg/dL Creatinine 1.60 H 0.700-1.30 mg/dL Glomerular Filtration Rate Calc 43 >90 mL/min BUN/Creatinine Ratio 15.0 10.0-20.0 Serum Glucose 300 H 74-106 mg/dL Calcium Level 9.4 8.7-10.4 mg/dL Magnesium Level 2.4 1.6-2.6 mg/dL Total Bilirubin 2.0 H 0.2-1.0 mg/dL Aspartate Amino Transferase (AST) 21 13-40 U/L Alanine Aminotransferase (ALT) 50 H 7-40 U/L Alkaline Phosphatase 114 46-116 U/L B-Type Natriuretic Peptide 70.99 0-100 pg/mL Total Protein 7.4 5.7-8.2 g/dL Albumin 4.3 3.2-4.8 g/dL Current Medications Medications (Trade) Dose Ordered Sig/Aliya Route Start Time Stop Time Status Last Admin Lactated Ringer's 2,050 ml @ 2,050 mls/hr ONCE ONCE IV 04/07/25 15:00 04/07/25 15:59 DC 04/07/25 15:24 Levetiracetam 100 ml @ 400 mls/hr ONCE ONCE IV 04/07/25 17:15 04/07/25 17:29 DC 04/07/25 17:22 Dexamethasone Sodium Phosphate (Decadron Injection) 10 mg ONCE ONCE IV 04/07/25 17:15 04/07/25 17:16 DC 04/07/25 17:[address] [address] Ph: [phone] DIAGNOSTIC IMAGING Diagnostic Imaging Report : [id number] Signed PATIENT: DIDI MANTILLA ACCT: [id number] UNIT: [id number] : 1945 LOC: ER ROOM / BED: / AGE / SEX: 79 / M ADM STATUS: REG ER SERVICE 1451 ORDERING PHYSICIAN: MONTANA PILLAI DO PROCEDURE(s): CXRP - CHEST PORTABLE REASON: sepsis ORDER NUMBER(s): [id number], ACCESSION NUMBER(s): [id number] EXAM: XY CHEST PORTABLE HISTORY: sepsis TECHNIQUE: 1 view of the chest COMPARISON: TRANSESOPH ECHOCARDIOGRAM on DOS: 08/28/24 FINDINGS/IMPRESSION: LUNGS: No pleural effusion, consolidation, or pneumothorax. MEDIASTINUM: Normal cardiac size. Sternotomy wires BONES: No acute osseous abnormality. Presumed degenerative change of the left acromioclavicular joint. Osseous spurring along the left conoid tubercle which may be sequelae of prior injury. OTHER: Presumed skin fold of the right chest ATED BY: PATRICK LINDSAY MD DICTATED DATE/TIME: 04/07/25 152 SIGNED BY: PATRICK LINDSAY MD SIGNED DATE/TIME: 04/07/[address] [address] Ph: [phone] DIAGNOSTIC IMAGING Diagnostic Imaging Report : [id number] Signed PATIENT: DIDI MANTILLA ACCT: [id number] UNIT: [id number] : 1945 LOC: ER ROOM / BED: / AGE / SEX: 79 / M ADM STATUS: REG ER SERVICE 1550 ORDERING PHYSICIAN: MONTANA PILLAI DO PROCEDURE(s): HWOCT - HEAD WITHOUT CONTRAST REASON: ALOC, FLAHERTY, ORDER NUMBER(s): [id number], ACCESSION NUMBER(s): [id number] EXAM: CT HEAD WITHOUT CONTRAST INDICATION: ALOC, FLAHERTY, TECHNIQUE: CT images of the head were obtained without administration of IV contrast. CT scans at this facility use dose modulation, iterative reconstruction, and/or weight based dosing when appropriate to reduce radiation dose to as low as reasonably achievable. COMPARISON: CT ANGIO HEAD/NECK on DOS: 04/07/25 FINDINGS: PARENCHYMA: No acute hemorrhage. Minimal 3 mm rightward midline shift. There is preservation of the villarreal white differentiation. Mild scattered hypoattenuation along the periventricular, centrum semiovale, and deep white matter tracts, which are nonspecific however statistically most likely represent chronic microvascular ischemic change. VENTRICLES: No hydrocephalus. EXTRA-AXIAL SPACES: Bilateral presumed chronic subdural hematomas, [id number]-right with areas of acute hemorrhage of the left occipital convexity. Subdural hematoma in the left measures 1.1 cm width and 0.8 cm on the right. Minimal acute blood products with curvilinear appearance along the right subdural hematoma. OTHER: The bony structures are intact. Visualized portions of the paranasal sinuses and mastoid air cells are clear. IMPRESSION: 1. Bilateral presumed chronic subdural hematomas, [id number]-buhy-right with areas of acute hemorrhage of the left occipital convexity. 2. Minimal acute blood products with curvilinear appearance along the right subdural hematoma. ATED BY: PATRICK LINDSAY MD DICTATED DATE/TIME: 04/07/251657 SIGNED BY: PATRICK LINDSAY MD SIGNED DATE/TIME: 04/07/251657 CC: Time of 1ST Reevaluation: 15:30 Reevaluation 1ST: Unchanged Time of 2ND Reevaluation: 17:06 (CT scan some says both chronic and acute intracranial hemorrhage. Patient will be transferred to higher level of care. Keppra and Decadron were initiated.) Time of 3RD Reevaluation: 17:19 (The case was discussed with the neurology on- call team (HPI, physical exam, labs and diagnostic tests that were available at the time of disposition, ED course, treatment plan) on the phone. They recommend to admit the patient to our facility and not transfer the patient at this time. They do not recommend reversing any of the aspirin and Plavix that the patient is on at this time. . He reviewed the images and the report of the CT scan.) Patient Education/Counseling: Diagnosis, Treatment Family Education/Counseling: No Family Present Comments MDM: patient presented with the above HPI.--altered level of consciousness/AMS----workup was initiated. patient was found with the above mentioned diagnosis. the following medications were ordered: please refer to order lists of meds and tests obtained by myself Dr. Pillai. Patient ED course and VS have been stabilized. Patient has been reassessed in the ED and remained in a stable condition. Pertinent incidental findings were discussed with the patient and/or family. Patient/family voices understanding and is agreeable with plan. Patient has been observed in the ED adequate length of time to insure improvement/stability. Escalation of care considered: Consideration of escalation to observation or admission Patient was found with a intracranial hemorrhage chronic with a possible acute component. Case discussed with our neurologist on-call who recommends admitting the patient here in our facility. He did evaluate the patient. Please see their consultation notes. Patient was given Keppra and Decadron and fluids. Patient was ADMITTED to the medicine team for further evaluation and treatment of their presentation. All the reports of any imaging studies that were ordered by myself were reviewed by myself. SEPSIS Sepsis Screen Physician Orders Chest Portable (04/07/25 14:51) Accucheck (04/07/25 14:51) Blood Culture (04/07/25 14:51) Cefepime 1gm/50ml (Maxipime 1gm/50ml) (04/07/25 22:00) Notify Md If Map <65 Or Bp<90 (04/07/25 14:51) If Map<65 Start Vasopressor (04/07/25 14:51) Sepsis Reassesment After Fluid (04/07/25 15:51) Neurological Assessment (04/07/25 15:50) Stroke Assessment (04/07/25 15:50) Head Without Contrast (04/07/25 15:50) Vital Signs .PER UNIT PROTOCOL (04/07/25 17:07) Cotton Buyer (04/07/25 17:07) Accurate Weight In Kg (04/07/25 17:07) Electrocardigram (04/07/25 17:07) Accucheck (04/07/25 17:07) * Neurology Consult (04/07/25 17:07) 2 Large Bore Ivs (20mg Or Larg (04/07/25 17:07) Nursing Dysphagia Screen (04/07/25 17:07) Neuro Checks Per Unit Protocol (04/07/25 17:07) Brain Head Wo Contrast (04/07/25 19:01) Eeg Awake/Sleep/Act (04/07/25 19:01) Lorazepam 2mg/Ml Inj (Ativan Inj) (04/07/25 19:15) (Nf) Tetrabenazine (04/07/25 22:00) Ammonia (04/07/25 19:02) Urine Dip (04/07/25 ) Beta-Hydroxybutyrate (04/07/25 19:05) Atorvastatin (Lipitor) (04/08/25 10:00) Carotid Duplx W Color Dop (04/07/25 19:05) Echo 2d Mode Cardiac Dop (04/07/25 19:05) Vital Signs Date Time Temp Pulse Resp B/P (MAP) Pulse Ox O2 Delivery O2 Flow Rate FiO2 04/07/25 19:03 97 04/07/25 18:00 97 20 116/64 (81) 91 04/07/25 16:19 97 32 136/79 (98) 91 04/07/25 15:26 98.7 98 23 101/78 (86) 91 98.7 04/07/25 15:25 96 23 91 Room Air* 0 21 04/07/25 14:58 103 04/07/25 14:48 97.0 104 18 115/91 98 97.0 Laboratory Tests Test 04/07/25 15:05 04/07/25 17:20 Lactic Acid Level 1.7 mmol/L (0.4-2.0) 1.7 mmol/L (0.4-2.0) White Blood Count 9.2 10^3/uL (4.4-10.8) Medications Medications Dose Ordered Sig/Aliya Route Start Time Stop Time Status Last Admin Dose Admin Dexamethasone Sodium Phosphate 10 mg ONCE ONCE IV 04/07/25 17:15 04/07/25 17:16 DC 04/07/25 17:22 Lactated Ringer's 2,050 ml @ 2,050 mls/hr ONCE ONCE IV 04/07/25 15:00 04/07/25 15:59 DC 04/07/25 15:24 Levetiracetam 100 ml @ 400 mls/hr ONCE ONCE IV 04/07/25 17:15 04/07/25 17:29 DC 04/07/25 17:22 Departure 1 Departure Time of Disposition: 16:20 Impression: Primary Impression: Altered mental status Additional Impressions: Sepsis Intracranial hemorrhage Disposition: ADMITTED INPATIENT Admit to: Tele Condition: Critical Discharged With: Self, Spouse Critical Care Note Critical Care Time?: Yes (1 hr-critical care time only) Heart Score Heart Score: Heart Score Response (Comments) Value History N/A 0 EKG N/A 0 Age N/A 0 Risk Factors N/A 0 Troponin N/A 0 Total 0 I personally scribed for MONTANA PILLAI DO ([email or web address]) on 04/07/25 at 14:58. Electronically submitted by Daryl Conde ([employer]). I personally scribed for MONTANA PILLAI DO ([email or web address]) on 04/07/25 at 16:56. Electronically submitted by Daryl Conde ([email or web address]). MONTANA PILLAI DO Apr 07, 2025 14:58
[2025-04-07 15:19] LABS: Hematocrit 42.3 % (41.0-53.0); Hemoglobin 14.6 g/dL (13.5-17.5); Mean Corpuscular Hemoglobin 31.3 pg (28.0-32.0); Mean Corpuscular Volume 91.0 fL (80.0-100.0); Nucleated Red Blood Cells % 0.1 %
[2025-04-07] MEDS: LACTATED RINGER'S 2,050 ML IV ONE (15:24)
[2025-04-07 15:25] VITALS: PULSE 96; RESP 23; O2SAT 91
--- NOTE | 2025-04-07 15:29 | DVH ---
EXAM: XY CHEST PORTABLE HISTORY: sepsis TECHNIQUE: 1 view of the chest COMPARISON: TRANSESOPH ECHOCARDIOGRAM on DOS: 08/28/24 FINDINGS/IMPRESSION: LUNGS: No pleural effusion, consolidation, or pneumothorax. MEDIASTINUM: Normal cardiac size. Sternotomy wires BONES: No acute osseous abnormality. Presumed degenerative change of the left acromioclavicular joint . Osseous spurring along the left conoid tubercle which may be sequelae of prior injury. OTHER: Presumed skin fold of the right chest
[2025-04-07 15:33] LABS: Albumin 4.3 g/dL (3.2-4.8); Alkaline Phosphatase 114 U/L (46-116); Anion Gap 17 (5-15); BUN/Creatinine Ratio 15.0 (10.0-20.0); Calcium 9.4 mg/dL (8.7-10.4); Chloride 105 mmol/L (98-107); Sodium 140 mmol/L (136-145); Total Protein 7.4 g/dL (5.7-8.2)
[2025-04-07 15:39] LABS: Alanine Aminotransferase 50 U/L (7-40); Bilirubin, Total 2.0 mg/dL (0.2-1.0); Blood Urea Nitrogen 24 mg/dL (9-23); Carbon Dioxide 18 mmol/L (20-31); Glucose 300 mg/dL (74-106); Potassium 5.1 mmol/L (3.5-5.1)
[2025-04-07 15:41] LABS: INR 0.97 (0.9-1.15); Partial Thromboplastin Time 25.1 SEC (24.5-34.5); Prothrombin Time 10.3 sec (9.3-11.8)
--- NOTE | 2025-04-07 17:01 | DVH ---
EXAM: CT HEAD WITHOUT CONTRAST INDICATION: KRYSTINA COWAN, TECHNIQUE: CT images of the head were obtained without administration of IV contrast. CT scans at [facility] facility use dose modulation, iterative reconstruction, and/or weight based dosing when appropriate to reduce radiation dose to as low as reasonably achievable. COMPARISON: CT ANGIO HEAD/NECK on DOS: 04/07/25 FINDINGS: PARENCHYMA: No acute hemorrhage. Minimal 3 mm rightward midline shift. There is preservation of the g ray white differentiation. Mild scattered hypoattenuation along the periventricular, centrum semioval e, and deep white matter tracts, which are nonspecific however statistically most likely represent ch ronic microvascular ischemic change. VENTRICLES: No hydrocephalus. EXTRA-AXIAL SPACES: Bilateral presumed chronic subdural hematomas, [id number]-[id number]-ulnp-right with areas of acute hemorrhage of the left occipital convexity. Subdural hematoma in the left measures 1.1 cm width and 0.8 cm on the right. Minimal acute blood products with curvilinear appearance along the rig ht subdural hematoma. OTHER: The bony structures are intact. Visualized portions of the paranasal sinuses and mastoid air cells are clear. IMPRESSION: 1. Bilateral presumed chronic subdural hematomas, [id number]-kumbjdk-kooi-right with areas of acute hemorrh age of the left occipital convexity. 2. Minimal acute blood products with curvilinear appearance along the right subdural hematoma.
[2025-04-07] MEDS: IOHEXOL 350 MG/ML 100ML IJ ONE (17:02)
[2025-04-07] MEDS: levETIRAcetam 500 mg/100ml 100 ML IV ONE (17:22)
--- NOTE | 2025-04-07 18:20 | DVHINCON2 ---
Date of service: Apr 07, [address] Prajapati Reason for Consultation ALOC History of Present Illness This is a stat consultation. The case was preliminarily discussed with Dr. Zurita earlier today Mr. Munoz is a 79 years old right-handed gentleman with a history of hypertension, diabetes, dyslipidemia, coronary artery disease, the patient came to the [facility] on 04/07/2025 with a chief complaint of low appetite, general weakness, lethargy. At this time, he is alert and fully oriented to person, place, not able to provide history, the information is obtained from his through interpretation service, unfortunately she is not a good historian I saw him on 08/22/2023 for stroke (MRI head negative) According to his , typically the patient has no confusion more is mentally normal, but in the morning on 04/07/2025, he was noticed to be confused, with general weakness, he did not eat. He has no headache until in the morning on 04/07/2025. CT brain scan showed bilateral acute/subacute on chronic bilateral subdural hematoma. relates no recent fall or head injury On 10/10/2024, the patient went through open heart surgery and he has been on combined aspirin 81 mg, Plavix 75 mg since In 08/2023, he developed uncontrollable left-hand movement, since 12/2024, he has been on tetrabenazine 12.5 mg b.i.d. with some improvement Home medication bottles: Aspirin 81 mg daily, Plavix 75 mg daily, pravastatin 40 mg daily, lisinopril, carvedilol, tetrabenazine 12.5 mg b.i.d. CBC, 04/07/2025: Unremarkable BUN/CR, 04/07/2025: 24/1.6 GFR, 04/07/2025: 43 HCO3, 04/07/2025: 18 Anion gap, 04/07/2025: 17 TBI/AST/ALT/AP, 08/22/2023: 1.1//43/93 Glucose: 04/07/25: 300 TG/CHO L/LDL/HDL, 08/23/2023: 140/156/100/40, 04/07/2025: 2/21/50/114 TSH, 08/2023: 0.8 CT head, 08/22/2023: No CT evidence of acute intracranial abnormality. If clinically concern for acute ischemia, MRI may be useful in further evaluation CT head, 04/07/2025: 1. Bilateral presumed chronic subdural hematomas, [id number] with areas of acute hemorrhage of the left occipital convexity. 2. Minimal acute blood products with curvilinear appearance along the right subdural hematoma (I saw evidence suggestive of bilateral acute/subacute subdural hemorrhage) MRI head, 08/23/2023: No acute infarct, intracranial hemorrhage, mass effect, or hydrocephalus. There is periventricular/deep white matter T2/FLAIR hyperintensity is nonspecific, but most commonly associated with chronic microvascular disease. Past Medical History Hypertension, diabetes, dyslipidemia, heart disease Past Surgical History Open heart surgery Family History: Alcoholism Cancer G8 SISTER Family history: Diabetes mellitus G8 MOTHER G8 FATHER G8 BROTHER Family History Hypertension, diabetes, cancer, alcoholism Social History Smoker: Non-Smoker Alcohol: Denies ETOH Use Drugs: Denies Drug Use Lives In: Home Allergies: Coded Allergies: NO KNOWN ALLERGIES (Unverified , 03/09/14) Home Meds Active Scripts Valsartan (Valsartan) 80 Mg Tab, 40 MG PO DAILY for 30 Days, #15 TAB 3 Refills Prov:LIBBY AYALA DO 09/03/24 Spironolactone (Aldactone) 25 Mg Tab, 12.5 MG PO DAILY for 30 Days, #15 TAB 3 Refills Prov:LIBBY AYALA DO 09/03/24 Fluconazole (Fluconazole) 100 Mg Tab, 100 MG PO DAILY for 7 Days, #7 TAB 0 Refills Prov:LIBBY AYALA DO 09/03/24 Empagliflozin (Jardiance) 10 Mg Tab, 10 MG PO DAILY for 30 Days, #30 TAB 3 Refills Prov:YAALALIBBY Collins DO 09/03/24 Clopidogrel Bisulfate (CLOPIDOGREL) 75 Mg Tab, 75 MG PO DAILY for 30 Days, #30 TAB 3 Refills Prov:LIBBY AYALA DO 09/03/24 Carvedilol (COREG) 12.5 Mg Tab, 6.25 MG PO Q12HR for 30 Days, #30 TAB 3 Refills Prov:AYALALIBBY Clolins 09/03/24 Reported Medications Tetrabenazine (Tetrabenazine) 12.5 Mg Tab, 12.5 MG PO BID, TAB 08/23/24 Lisinopril (Lisinopril) 20 Mg Tab, 1 TAB PO DAILY 08/22/23 Glipizide (Glipizide) 10 Mg Tab, 2 TAB PO BID 08/22/23 Pioglitazone Hydrochloride (PIOGLITAZONE HCL) 15 Mg Tab, 1 TAB PO DAILY 08/22/23 Metformin Hydrochloride (Metformin Hcl) 850 Mg Tab, 1 TAB PO TID 08/22/23 Pravastatin Sodium (PRAVACHOL TABLET) 20 Mg Tb, 20 MG PO DAILY 03/09/14 Lisinopril (ZESTRIL TABLET) 20 Mg Tb, 20 MG PO DAILY 03/09/14 Current Medications Current Medications Medications (Trade) Dose Ordered Sig/Aliya Route PRN Reason Start Time Stop Time Status Last Admin Cefepime HCl 50 ml @ 12.5 mls/hr Q12HR IV 04/07/25 22:00 Review of Systems As above, the other systems are negative Vital Signs Vital Signs Date Time Temp Pulse Resp B/P (MAP) Pulse Ox O2 Delivery O2 Flow Rate FiO2 04/07/25 15:26 98.7 98 23 101/78 (86) 91 98.7 04/07/25 15:25 Room Air* 0 21 Physical Exam GENERAL EXAM: General: the patient is well developed and nourished. No acute distress. HEENT: Normocephalic, neck is supple, no carotid bruits. No mass. RESPIRATORY: Normal respiratory effort with symmetrical lung expansion. Lungs clear to auscultation. CARDIOVASCULAR: Regular rate and rhythm with no murmurs. S1, S2. ABDOMEN: Soft, nontender, normal bowel sound NEUROLOGICAL: MENTAL STATUS: Awake and alert. Oriented to person, place, SPEECH, LANGUAGE, HIGHER CORTICAL FUNCTION: no aphasia or dysathria. CRANIAL NERVES: #2: Intact visual lyon to confrontation. The optic discs were sharp #3,4,6: Pupils are equal, round and reactive. EOMs full and conjugate. No nystagmus. #5: Facial sensation intact in all three divisions bilaterally. Mandibular strength intact. #7: Possible right facial weakness of upper motor neuron pattern #8: Hearing grossly normal to voice. #9,10: Uvula and soft palate rise in the midline. Swallow and voice are normal. #11: Trapezius and sternomastoid strength intact bilaterally. #12: Tongue midline. No fasciculations or atrophy. SENSATION: Sensation to touch and pinprick is fine. MOTOR: Normal tone in the upper and lower extremity. Normal muscle bulk. No fasciculations. Uncontrollable movement in the left hand. Muscle strength of the major groups in the extremities is 5/5. REFLEXES: Deep tendon reflexes are symmetrical. No pathological reflexes. CEREBELLAR/COORDINATION: Deferred GAIT/STATION: deferred Labs/Diagnostic Data Labs Test 04/07/25 17:20 04/07/25 15:05 Range/Units White Blood Count 9.2 4.4-10.8 10^3/uL Red Blood Count 4.65 4.5-5.90 10^6/uL Hemoglobin 14.6 13.5-17.5 g/dL Hematocrit 42.3 41.0-53.0 % Mean Corpuscular Volume 91.0 80.0-100.0 fL Mean Corpuscular Hemoglobin 31.3 28.0-32.0 pg Mean Corpuscular Hemoglobin Concent 34.4 32.0-36.0 g/dL Red Cell Distribution Width 14.0 11.8-14.3 % Platelet Count 169 140-450 10^3/uL Mean Platelet Volume 7.7 6.9-10.8 fL Neutrophils (%) (Auto) 85.3 H 37.0-80.0 % Lymphocytes (%) (Auto) 9.2 L 10.0-50.0 % Monocytes (%) (Auto) 5.0 0.0-12.0 % Eosinophils (%) (Auto) 0.1 0.0-7.0 % Basophils (%) (Auto) 0.4 0.0-2.0 % Neutrophils # (Auto) 7.8 1.6-8.6 10 ^3/uL Lymphocytes # (Auto) 0.8 0.4-5.4 10 ^3/uL Monocytes # (Auto) 0.5 0-1.3 10 ^3/uL Eosinophils # (Auto) 0 0-0.8 10 ^3/uL Basophils # (Auto) 0 0-0.2 10 ^3/uL Nucleated Red Blood Cells 0.1 % Prothrombin Time 10.3 9.3-11.8 sec Prothrombin Time INR 0.97 0.9-1.15 Activated Partial Thromboplast Time 25.1 24.5-34.5 SEC Sodium Level 140 136-145 mmol/L Potassium Level 5.1 3.5-5.1 mmol/L Chloride Level 105 98-107 mmol/L Carbon Dioxide Level 18 L 20-31 mmol/L Anion Gap 17 H 5-15 Blood Urea Nitrogen 24 H 9-23 mg/dL Creatinine 1.60 H 0.700-1.30 mg/dL Glomerular Filtration Rate Calc 43 >90 mL/min BUN/Creatinine Ratio 15.0 10.0-20.0 Serum Glucose 300 H 74-106 mg/dL Calcium Level 9.4 8.7-10.4 mg/dL Total Bilirubin 2.0 H 0.2-1.0 mg/dL Aspartate Amino Transferase (AST) 21 13-40 U/L Alanine Aminotransferase (ALT) 50 H 7-40 U/L Alkaline Phosphatase 114 46-116 U/L Total Protein 7.4 5.7-8.2 g/dL Albumin 4.3 3.2-4.8 g/dL Assessment ALOC, headache Bilateral subdural hematoma ? Metabolic encephalopathy ? Metabolic acidosis Elevated glucose Abnormal liver function tests ? Right facial weakness to rule out acute stroke Status post open heart surgery, on combined aspirin and Plavix at home Hyperglycemia Plan/Recommendation Monitoring Supportive treatment Telemetry NH3 Beta-hydroxybutyric acid Urinalysis MRI brain scan Echocardiogram, Carotid Doppler Hold off Plavix and aspirin for now Lipitor 80 mg daily Tetrabenazine 12.5 mg bid More recommendation per clinical course Prognosis: Poor Time spent is more than 75 minutes This medical document was created using an electronic medical record system with [employer] computerized dictation system. Although this document has been carefully reviewed, there may still be some phonetic and typographical errors. These areas are purely typographical due to imperfections of the software programs, and do not reflect any compromise in the patient's medical care. Plan discussed with: Spouse, Other VALENTINA NESBITT MD Apr 07, 2025 18:20
[2025-04-07 18:30] LABS: Urine Amorphous Crystal FEW /hpf (None Seen); Urine Protein, UAD Negative (Negative)
--- NOTE | 2025-04-07 19:50 | DVHHP2 ---
History of Present Illness HPI 79M who is Occitan speaking BIBA w. the c/c of generalized weakness. Ems report on the pt's calling them and speaking to them due, from the pt having generalized weakness, lethargic. Pt has also been having frequency of urination for an unknown number of days. Denies any other symptoms at this time. Patient has a known history of a facial droop and a stroke unchanged according to EMS per 's report. isn't available at bedside on initial evaluation. Per EMS, patient was ambulatory at the scene independently. PATIENT IS ON PLAVIX AND ASPIRIN Home Meds Active Scripts Valsartan (Valsartan) 80 Mg Tab, 40 MG PO DAILY for 30 Days, #15 TAB 3 Refills Prov:LIBBY AYALA DO 09/03/24 Spironolactone (Aldactone) 25 Mg Tab, 12.5 MG PO DAILY for 30 Days, #15 TAB 3 Refills Prov:LIBBY AYALA DO 09/03/24 Fluconazole (Fluconazole) 100 Mg Tab, 100 MG PO DAILY for 7 Days, #7 TAB 0 Refills Prov:LIBBY AYALA DO 09/03/24 Empagliflozin (Jardiance) 10 Mg Tab, 10 MG PO DAILY for 30 Days, #30 TAB 3 Refills Prov:LIBBY AYALA DO 09/03/24 Clopidogrel Bisulfate (CLOPIDOGREL) 75 Mg Tab, 75 MG PO DAILY for 30 Days, #30 TAB 3 Refills Prov:LIBBY AYALA DO 09/03/24 Carvedilol (COREG) 12.5 Mg Tab, 6.25 MG PO Q12HR for 30 Days, #30 TAB 3 Refills Prov:LIBBY AAYLA DO 09/03/24 Reported Medications Tetrabenazine (Tetrabenazine) 12.5 Mg Tab, 12.5 MG PO BID, TAB 08/23/24 Lisinopril (Lisinopril) 20 Mg Tab, 1 TAB PO DAILY 08/22/23 Glipizide (Glipizide) 10 Mg Tab, 2 TAB PO BID 08/22/23 Pioglitazone Hydrochloride (PIOGLITAZONE HCL) 15 Mg Tab, 1 TAB PO DAILY 08/22/23 Metformin Hydrochloride (Metformin Hcl) 850 Mg Tab, 1 TAB PO TID 08/22/23 Pravastatin Sodium (PRAVACHOL TABLET) 20 Mg Tb, 20 MG PO DAILY 03/09/14 Lisinopril (ZESTRIL TABLET) 20 Mg Tb, 20 MG PO DAILY 03/09/14 Past Medical History Patient Family History: Alcoholism Cancer G8 SISTER Family history: Diabetes mellitus G8 MOTHER G8 FATHER G8 BROTHER Review of Systems Constitutional: No symptom reported Ears, Nose, & Throat: No symptom reported Eyes: No symptom reported Cardiovascular: No symptom reported Genitourinary: No symptom reported H&P Exam Vital Signs Vital Signs Date Time Temp Pulse Resp B/P (MAP) Pulse Ox O2 Delivery O2 Flow Rate FiO2 04/07/25 19:03 97 04/07/25 18:00 20 116/64 (81) 91 04/07/25 15:26 98.7 98.7 04/07/25 15:25 Room Air* 0 21 General Appeara: Well developed, Well nourished Back Exam: Normal inspection SEPSIS Sepsis Screen Date sepsis recognized/suspect: Apr 07, 2025 Time Sepsis recognized/suspect: 1451 Recent Procedure: No On Antibiotic Therapy: No Respiratory Rate >20: No Heart Rate >90: Yes Temp<36 C (96.8 F) or >38.3 C: No SBP <90 or MAP <65 mmHG: No New Acute Mental Status Change: No Is the patient on CPAP, BIPAP,: No Physician Orders Chest Portable (04/07/25 14:51) Accucheck (04/07/25 14:51) Blood Culture (04/07/25 14:51) Cefepime 1gm/50ml (Maxipime 1gm/50ml) (04/07/25 22:00) Notify Md If Map <65 Or Bp<90 (04/07/25 14:51) If Map<65 Start Vasopressor (04/07/25 14:51) Sepsis Reassesment After Fluid (04/07/25 15:51) Neurological Assessment (04/07/25 15:50) Stroke Assessment (04/07/25 15:50) Head Without Contrast (04/07/25 15:50) Vital Signs .PER UNIT PROTOCOL (04/07/25 17:07) Financial Quantitative Analyst (04/07/25 17:07) Accurate Weight In Kg (04/07/25 17:07) Electrocardigram (04/07/25 17:07) Accucheck (04/07/25 17:07) * Neurology Consult (04/07/25 17:07) 2 Large Bore Ivs (20mg Or Larg (04/07/25 17:07) Nursing Dysphagia Screen (04/07/25 17:07) Neuro Checks Per Unit Protocol (04/07/25 17:07) Brain Head Wo Contrast (04/07/25 19:01) Eeg Awake/Sleep/Act (04/07/25 19:01) Lorazepam 2mg/Ml Inj (Ativan Inj) (04/07/25 19:15) (Nf) Tetrabenazine (04/07/25 22:00) Ammonia (04/07/25 19:02) Urine Dip (04/07/25 ) Beta-Hydroxybutyrate (04/07/25 19:05) Atorvastatin (Lipitor) (04/08/25 10:00) Carotid Duplx W Color Dop (04/07/25 19:05) Echo 2d Mode Cardiac Dop (04/07/25 19:05) Admit (04/07/25:46) Code Status (04/07/25:46) Full Liq Diet (04/08/25 Breakfast) Enoxaparin Sodium (Lovenox) (04/08/25 10:00) Complete Blood Count (04/08/25 04:00) Comprehensive Metabolic Panel (04/08/25 04:00) Pt Request For Service (04/07/25 19:46) Condition: Serious (04/07/25 19:46) Acetaminophen Tablet (Tylenol Tablet) (04/07/25 20:00) Lovenox 30mg (04/07/25 20:00) Lovenox 40mg (04/07/25 20:00) Nitroglycerin Sublingual (Ntrostat Subli (04/07/25 20:00) Morphine Sulfate Injection (04/07/25 20:00) Stat Ekg For Chest Pain (04/07/25:46) Notify Of Changes From Base (04/07/25 19:46) Molded Rubber Goods Cutter For 24 Hours (04/07/25 19:46) Emergency Dysrhythmia Protocol (04/07/25:46) Rhythm Strips Once Every Shift (04/07/25:46) Oxygen By Nasal Cannula (04/07/25 19:46) Vital Signs Date Time Temp Pulse Resp B/P (MAP) Pulse Ox O2 Delivery O2 Flow Rate FiO2 04/07/25 19:03 97 04/07/25 18:00 97 20 116/64 (81) 91 04/07/25 16:19 97 32 136/79 (98) 91 04/07/25 15:26 98.7 98 23 101/78 (86) 91 98.7 04/07/25 15:25 96 23 91 Room Air* 0 21 04/07/25 14:58 103 04/07/25 14:48 97.0 104 18 115/91 98 97.0 Laboratory Tests Test 04/07/25 15:05 04/07/25 17:20 Lactic Acid Level 1.7 mmol/L (0.4-2.0) 1.7 mmol/L (0.4-2.0) White Blood Count 9.2 10^3/uL (4.4-10.8) Medications Medications Dose Ordered Sig/Aliya Route Start Time Stop Time Status Last Admin Dose Admin Dexamethasone Sodium Phosphate 10 mg ONCE ONCE IV 04/07/25 17:15 04/07/25 17:16 DC 04/07/25 17:22 10 MG Lactated Ringer's 2,050 ml @ 2,050 mls/hr ONCE ONCE IV 04/07/25 15:00 04/07/25 15:59 DC 04/07/25 15:24 2,050 MLS/HR Levetiracetam 100 ml @ 400 mls/hr ONCE ONCE IV 04/07/25 17:15 04/07/25 17:29 DC 04/07/25 17:22 400 MLS/HR Labs/Xrays Labs Test 04/07/25 18:11 04/07/25 17:20 04/07/25 15:05 Range/Units Urine Color Light-yellow Yellow Urine Clarity Clear Clear Urine pH 5.0 5.0-9.0 Urine Specific Sunset 1.031 1.001-1.035 Urine Protein Negative Negative Urine Ketones 2+ H Negative Urine Blood Negative Negative /uL Urine Nitrite Negative Negative Urine Bilirubin Negative Negative Urine Urobilinogen Normal Negative mg/dL Urine Leukocyte Esterase Negative Negative /uL Urine RBC <1 0 - 3 /hpf Urine Microscopic WBC 1 0-3 /HPF Urine Squamous Epithelial Cells Few <5 /hpf Urine Amorphous Crystals Few None Seen /hpf Urine Bacteria None seen None Seen /hpf Urine Mucus Few None Seen Urine Glucose 4+ H Normal mg/dL Lactic Acid Level 1.7 0.4-2.0 mmol/L White Blood Count 9.2 4.4-10.8 10^3/uL Red Blood Count 4.65 4.5-5.90 10^6/uL Hemoglobin 14.6 13.5-17.5 g/dL Hematocrit 42.3 41.0-53.0 % Mean Corpuscular Volume 91.0 80.0-100.0 fL Mean Corpuscular Hemoglobin 31.3 28.0-32.0 pg Mean Corpuscular Hemoglobin Concent 34.4 32.0-36.0 g/dL Red Cell Distribution Width 14.0 11.8-14.3 % Platelet Count 169 140-450 10^3/uL Mean Platelet Volume 7.7 6.9-10.8 fL Neutrophils (%) (Auto) 85.3 H 37.0-80.0 % Lymphocytes (%) (Auto) 9.2 L 10.0-50.0 % Monocytes (%) (Auto) 5.0 0.0-12.0 % Eosinophils (%) (Auto) 0.1 0.0-7.0 % Basophils (%) (Auto) 0.4 0.0-2.0 % Neutrophils # (Auto) 7.8 1.6-8.6 10 ^3/uL Lymphocytes # (Auto) 0.8 0.4-5.4 10 ^3/uL Monocytes # (Auto) 0.5 0-1.3 10 ^3/uL Eosinophils # (Auto) 0 0-0.8 10 ^3/uL Basophils # (Auto) 0 0-0.2 10 ^3/uL Nucleated Red Blood Cells 0.1 % Prothrombin Time 10.3 9.3-11.8 sec Prothrombin Time INR 0.97 0.9-1.15 Activated Partial Thromboplast Time 25.1 24.5-34.5 SEC Sodium Level 140 136-145 mmol/L Potassium Level 5.1 3.5-5.1 mmol/L Chloride Level 105 98-107 mmol/L Carbon Dioxide Level 18 L 20-31 mmol/L Anion Gap 17 H 5-15 Blood Urea Nitrogen 24 H 9-23 mg/dL Creatinine 1.60 H 0.700-1.30 mg/dL Glomerular Filtration Rate Calc 43 >90 mL/min BUN/Creatinine Ratio 15.0 10.0-20.0 Serum Glucose 300 H 74-106 mg/dL Calcium Level 9.4 8.7-10.4 mg/dL Magnesium Level 2.4 1.6-2.6 mg/dL Total Bilirubin 2.0 H 0.2-1.0 mg/dL Aspartate Amino Transferase (AST) 21 13-40 U/L Alanine Aminotransferase (ALT) 50 H 7-40 U/L Alkaline Phosphatase 114 46-116 U/L B-Type Natriuretic Peptide 70.99 0-100 pg/mL Total Protein 7.4 5.7-8.2 g/dL Albumin 4.3 3.2-4.8 g/dL Assessment/Plan Primary Diagnosis 79M who is Occitan speaking BIBA w. the c/c of generalized weakness. Ems report on the pt's calling them and speaking to them due, from the pt having generalized weakness, lethargic. Pt has also been having frequency of urination for an unknown number of days. Denies any other symptoms at this time. Patient has a known history of a facial droop and a stroke unchanged according to EMS per 's report. isn't available at bedside on initial evaluation. Per EMS, patient was ambulatory at the scene independently. PATIENT IS ON PLAVIX AND ASPIRIN CT head initially indicates IMPRESSION: 1. Bilateral presumed chronic subdural hematomas, [id number]-[id number]-[id number]-right with areas of acute hemorrhage of the left occipital convexity. 2. Minimal acute blood products with curvilinear appearance along the right subdural hematoma. acute metabolic encephalopathy Sepsis rule out chronic subdural hematomas Intracranial hemorrhage weakness acute CVA with residual dementia DM type II with hyperglycemia Plan discussed with: Son, Other LIBBY AYALA DO Apr 07, 2025 19:50
[2025-04-07] MEDS ORDERED: ENOXAPARIN SOD 40 MG/0.4 ML SYRINGE SC SCH (20:00)
[2025-04-07] MEDS ORDERED: MORPHINE SULFATE INJ 2 MG/ml SYRG IV PRN (20:00)
[2025-04-07] MEDS ORDERED: ENOXAPARIN SOD 30 MG/0.3 ML SYRINGE SC SCH (20:00)
[2025-04-07] MEDS ORDERED: NITROGLYCERIN 0.4 MG SL TAB SL PRN (20:00)
[2025-04-07] MEDS ORDERED: DEXTROSE (50%) 50ML SYRG IV PRN (20:00)
--- NOTE | 2025-04-07 20:19 | DVH ---
Carotid Duplex Date: 04/07/2025 08:04 PM Clinical History: cva Comparison: US CAROTID DUPLX W COLOR DOP on DOS: 08/23/23 Technique: Duplex Doppler evaluation of the extracranial carotid and vertebral arteries including col or Doppler and spectral/pulsed waveform analysis was performed. Findings: RIGHT SIDE: The peak systolic velocities are 76 cm/s in the distal CCA exam was terminated due to patient being p hysically combative. IMPRESSION: 1. Study terminated prematurely by combative patient.
[2025-04-07] MEDS: CEFEPIME 1GM/50ML 50 ML IV SCH (22:45)
[2025-04-07 23:42] VITALS: BP 148/84; PULSE 87; RESP 20; TEMP 97.6; O2SAT 100
[2025-04-08] VITALS (9 sets, daily range): BP systolic 100–148; BP diastolic 52–87; PULSE 77–89; RESP 16–20; TEMP 77–98.4; O2SAT 95–100
[2025-04-08] MEDS: ACCU-CHEK COMFORT CURVE STRIP VI SCH (00:12)
[2025-04-08] MEDS: InsuLIN REG 1unit/0.01ml Soln (100units/ml) SC SCH (00:12)
[2025-04-08] MEDS: ACETAMINOPHEN 325 MG TAB PO PRN (00:47)
[2025-04-08 07:30] LABS: Hematocrit 36.5 % (41.0-53.0); Hemoglobin 12.4 g/dL (13.5-17.5); Mean Corpuscular Hemoglobin 31.0 pg (28.0-32.0); Mean Corpuscular Volume 91.4 fL (80.0-100.0); Nucleated Red Blood Cells % 0.2 %
[2025-04-08 07:54] LABS: Albumin 3.7 g/dL (3.2-4.8); Alkaline Phosphatase 93 U/L (46-116); Anion Gap 16 (5-15); BUN/Creatinine Ratio 18.3 (10.0-20.0); Calcium 8.7 mg/dL (8.7-10.4); Chloride 106 mmol/L (98-107); Potassium 4.7 mmol/L (3.5-5.1); Sodium 139 mmol/L (136-145); Total Protein 6.3 g/dL (5.7-8.2)
[2025-04-08 07:55] LABS: Alanine Aminotransferase 42 U/L (7-40); Bilirubin, Total 1.7 mg/dL (0.2-1.0); Blood Urea Nitrogen 23 mg/dL (9-23); Carbon Dioxide 17 mmol/L (20-31); Glucose 185 mg/dL (74-106)
--- NOTE | 2025-04-08 09:15 | DVHPN2 ---
Progress Note - Dictate Date Seen: Apr 08, 2025 Medical Necessity Reason Pt with a Central, PICC or Fol: No Subjective Mr. Munoz is a 79 years old right-handed gentleman with a history of hypertension, diabetes, dyslipidemia, coronary artery disease, the patient came to the [facility] on 04/07/2025 with a chief complaint of low appetite, general weakness, lethargy. I saw him on 08/22/2023 for stroke (MRI head negative) I have seen and examined the patient, I have discussed with his nurse, he is doing better today, awake, oriented to person, place, he knows year, he said it was March medication bottles: Aspirin 81 mg daily, Plavix 75 mg daily, pravastatin 40 mg daily, lisinopril, carvedilol, tetrabenazine 12.5 mg b.i.d. CBC, 04/07/2025: Unremarkable BUN/CR, 04/07/2025: 24/1.6 GFR, 04/07/2025: 43 HCO3, 04/07/2025: 18, 04/08/2025: 17 Anion gap, 04/07/2025: 17, 04/08/2020 5:16 a.m. TBI/AST/ALT/AP, 08/22/2023: 1.1/, 04/08/2025: 0.7/ Ammonia, 04/07/2025: 14 Glucose: 04/07/25: 300, 04/08/2025: 185 Beta hydroxybutyric acid 04/07/2025: >4.5 TG/CHO L/LDL/HDL, 08/23/2023: 140/156/100/40, 04/07/2025: 2/21/50/114 TSH, 08/2023: 0.8 Carotid Doppler, 04/07/2025: Study terminated prematurely by combative patient. CT head, 08/22/2023: No CT evidence of acute intracranial abnormality. If clinically concern for acute ischemia, MRI may be useful in further evaluation CT head, 04/07/2025: 1. Bilateral presumed chronic subdural hematomas, [id number]-right with areas of acute hemorrhage of the left occipital convexity. 2. Minimal acute blood products with curvilinear appearance along the right subdural hematoma (I saw evidence suggestive of bilateral acute/subacute subdural hemorrhage) MRI head, 08/23/2023: No acute infarct, intracranial hemorrhage, mass effect, or hydrocephalus. There is periventricular/deep white matter T2/FLAIR hyperintensity is nonspecific, but most commonly associated with chronic microvascular disease. vital signs Vital Sign Date Time Temp Pulse Resp B/P (MAP) Pulse Ox O2 Delivery O2 Flow Rate FiO2 04/08/25 05:00 97.5 86 18 110/63 (79) 97 97.5 04/08/25 00:27 Nasal Cannula* 2 28 Total Intake and Output 04/07/25 04/07/25 04/08/25 15:00 23:00 07:00 Intake Total 1250 ml Output Total 475 ml Balance 775 ml medications Current Medications Medications Dose Ordered Sig/Aliya Route Start Time Stop Time Status Last Admin Dose Admin Cefepime HCl 50 ml @ 12.5 mls/hr Q12HR IV 04/07/25 22:00 04/07/25 22:45 12.5 MLS/HR Lorazepam 1 mg ONCE PRN IV 04/07/25 19:15 Patient Own Medication 12.5 mg BID PO 04/07/25 22:00 Atorvastatin Calcium 40 mg DAILY PO 04/08/25 10:00 Acetaminophen 650 mg Q6HP PRN PO 04/07/25 20:00 04/08/25 00:47 650 MG Nitroglycerin 0.4 mg Q5MINP PRN SL 04/07/25 20:00 Morphine Sulfate 2 mg Q30M PRN IV 04/07/25 20:00 Diagnostic Test (Pha) 1 strip Q6HR 04/08/25 00:00 04/08/25 06:02 1 STRIP Insulin Human Regular Q6HR SC 04/08/25 00:00 04/08/25 06:05 3 UNITS Dextrose 50 ml UD PRN IV 04/07/25 20:00 objective General: the patient is well developed and nourished. No acute distress. MENTAL STATUS: Awake and alert. Subjective SPEECH, LANGUAGE, HIGHER CORTICAL FUNCTION: no aphasia or dysathria. CRANIAL NERVES: Pupils are equal, round and reactive. EOMs full and conjugate. No nystagmus. Facial sensation intact in all three divisions bilaterally. Mandibular strength intact. Possible right facial weakness of upper motor neuron pattern. Tongue midline. SENSATION: Sensation to touch and pinprick is fine. MOTOR: Normal tone in the upper and lower extremity. Normal muscle bulk. No fasciculations. Uncontrollable movement in the left hand. Muscle strength of the major groups in the extremities is 5/5. REFLEXES: Deep tendon reflexes are symmetrical. No pathological reflexes. CEREBELLAR/COORDINATION: Deferred GAIT/STATION: deferred laboratory and microbiology Laboratory Tests 04/08/25 06:20 Test 04/08/25 06:20 Range/Units Serum Glucose 185 #H 74-106 mg/dL Problem List ALOC, headache Bilateral subdural hematoma ? Metabolic encephalopathy Metabolic acidosis Diabetic ketoacidosis Abnormal liver function tests ? Right facial weakness to rule out acute stroke Status post open heart surgery, on combined aspirin and Plavix at home Hyperglycemia Assessment/Plan Monitoring Supportive treatment Telemetry Urinalysis MRI brain reports Hold off Plavix and aspirin for now Lipitor 80 mg daily Tetrabenazine 12.5 mg bid No specific treatment for the subdural hematoma More recommendation per clinical course This medical document was created using an electronic medical record system with [employer] dictation system. Although this document has been carefully reviewed, there may still be some phonetic and typographical errors. These areas are purely typographical due to imperfections of the software programs, and do not reflect any compromise in the patient's medical care. Prognosis poor Plan discussed with: Other Total Time (mins): 40 VALENTINA NESBITT MD Apr 08, 2025 09:15
[2025-04-08] MEDS: ATORVASTATIN 20 MG TAB PO SCH (09:29)
[2025-04-08] MEDS ORDERED: ENOXAPARIN SOD 40 MG/0.4 ML SYRINGE SC SCH (10:00)
--- NOTE | 2025-04-08 10:32 | ECG ---
[facility] Test Date: 2025-04-07 Test Time: 14:54:53 Pat Name: DIDI MANTILLA Department: [facility] ED Patient ID: [facility]-[id number] Room: 0278T A Gender: M Trash Man: vito : 1945 Requested By: [place] PILLAI Order Number: [id number] Reading MD: Teodoro Taylor Measurements Intervals [place] Rate: 103 P: 66 TX: 188 QRS: 58 QRSD: 101 T: 102 QT: 334 QTc: 437 Interpretive Statements Sinus tachycardia Anteroseptal infarct, age indeterminate Electronically Signed On 04-08-2025 13:56:01 PST by Teodoro Taylor Please click the below link to view image of tracing.
[2025-04-08] MEDS: LORazepam 2MG/ML-1ML VIAL IV PRN (10:58)
[2025-04-09] VITALS (7 sets, daily range): BP systolic 131–149; BP diastolic 73–125; PULSE 70–91; RESP 16–19; TEMP 97.5–98; O2SAT 91–97
--- NOTE | 2025-04-09 09:36 | DVH ---
EXAMINATION: MRI BRAIN HEAD WO CONTRAST INDICATION: CVA COMPARISON: CT HEAD WITHOUT CONTRAST on DOS: 04/07/25 TECHNIQUE: Multiplanar, multisequence magnetic resonance imaging of the brain was performed without the use of intravenous contrast. FINDINGS: No evidence of acute infarct. There is chronic right subdural hematoma measuring 11 mm in thickness. There is chronic left subdural hematoma measuring 8 mm. There is focal T1 hyperintensity in the left occipital lobe region consistent with acute subdural hemorrhage, similar to the CT scan from 04/07/2025. There is a smaller, more subtle curvilinear foci of acute hemorrhage in the region of the right subdural hematoma in the right parietal region. No midline shift or mass effect. There are periventricular and subcortical T2 hyperintensities, nonspecific, but likely reflecting sequelae of chronic microvascular ischemic changes. There is periventricular/deep white matter T2/FLAIR hyperintensity is nonspecific, but most commonly associated with chronic microvascular disease. The ventricles and sulci are normal in size for age. Clear basal cisterns. Flow voids in the major intracranial vessels are maintained. No abnormality of the orbits. Paranasal sinuses and mastoid air cells are clear. No abnormality of the visualized osseous structures and extracranial soft tissues. IMPRESSION: 1. No acute infarct. 2. Chronic bilateral subdural hematomas, right greater than left. Superimposed acute subdural hemorrhage in the left occipital region, similar to prior study. 3. Acute small subdural hemorrhage in the right parietal region, similar to prior CT. 4. No midline shift or mass effect.
--- NOTE | 2025-04-09 10:16 | DVHSR ---
APPROVED REPORT EXAM: Two-dimensional and M-mode echocardiogram with Doppler and color Doppler. Blood Pressure: 110/63 mmHg INDICATION CVA RISK FACTORS Height: 68, Weight: 130 DIMENSIONS LVDd (3.8-5.7cm) LA (2D) 3.3 (1.9-4.0cm) Aortic Root 3.9 (2.0-3.7cm) LVDs (2.5-4.0cm) LA (MM) (1.9-4.0cm) Aortic Cusp Exc 1.9 (1.5-2.0cm) EF (%) 67.0 (55-70%) Rt. Atrium 3.2 (1.9-4.0cm) Asc. Aorta cm Mitral Valve Mitral Mitral Stenosis E wave 0.43m/s MV Mean GR. mmHg A wave 0.84m/s MV Peak GR. mmHg E/A ratio 0.5 2D MVA cm2 DECEL Time 178ms PRESS 1/2 Time 45ms IVRT ms Dop MVA 4.88cm2 Other Information Technically limited study due to patient combative. Conclusion MILD LVH AND MILD LV DIASTOLIC DYSFUNCTION LV EF IS 67% HEAVILY CALCIFIED POSTERIOR MITRAL LEAFLET AND ANNULUS NORMAL RV FUNCTION NO EFFUSION NORMAL TV,PV AND AORTIC VALVES
--- NOTE | 2025-04-09 10:58 | DVHPN2 ---
Progress Note - Dictate Date Seen: Apr 09, 2025 Medical Necessity Reason Pt with a Central, PICC or Fol: No Subjective Mr. Munoz is a 79 years old right-handed gentleman with a history of hypertension, diabetes, dyslipidemia, coronary artery disease, the patient came to the [facility] on 04/07/2025 with a chief complaint of low appetite, general weakness, lethargy. I saw him on 08/22/2023 for stroke (MRI head negative) I have seen and examined the patient, I have discussed with his nurse, in the room, he is doing fine, awake, oriented to person, place, he knows year, monthly date, he has not had headache, but no new complaints Home medication bottles: Aspirin 81 mg daily, Plavix 75 mg daily, pravastatin 40 mg daily, lisinopril, carvedilol, tetrabenazine 12.5 mg b.i.d. CBC, 04/07/2025: Unremarkable BUN/CR, 04/07/2025: 24/1.6 GFR, 04/07/2025: 43 HCO3, 04/07/2025: 18, 04/08/2025: 17 Anion gap, 04/07/2025: 17, 04/08/2020 5:16 a.m. TBI/AST/ALT/AP, 08/22/2023: 1.1/, 04/08/2025: 0.7/ Ammonia, 04/07/2025: 14 Glucose: 04/07/25: 300, 04/08/2025: 185 Beta hydroxybutyric acid 04/07/2025: >4.5 TG/CHO L/LDL/HDL, 08/23/2023: 140/156/100/40, 04/07/2025: 2/21/50/114 TSH, 08/2023: 0.8 Echocardiogram, 04/08/2025, MILD LVH AND MILD LV DIASTOLIC DYSFUNCTION LV EF IS 67% HEAVILY CALCIFIED POSTERIOR MITRAL LEAFLET AND ANNULUS NORMAL RV FUNCTION NO EFFUSION NORMAL TV,PV AND AORTIC VALVES Carotid Doppler, 04/07/2025: Study terminated prematurely by combative patient. CT head, 08/22/2023: No CT evidence of acute intracranial abnormality. If clinically concern for acute ischemia, MRI may be useful in further evaluation CT head, 04/07/2025: 1. Bilateral presumed chronic subdural hematomas, [id number]-right with areas of acute hemorrhage of the left occipital convexity. 2. Minimal acute blood products with curvilinear appearance along the right subdural hematoma (I saw evidence suggestive of bilateral acute/subacute subdural hemorrhage) MRI head, 08/23/2023: No acute infarct, intracranial hemorrhage, mass effect, or hydrocephalus. There is periventricular/deep white matter T2/FLAIR hyperintensity is nonspecific, but most commonly associated with chronic microvascular disease. vital signs Vital Sign Date Time Temp Pulse Resp B/P (MAP) Pulse Ox O2 Delivery O2 Flow Rate FiO2 04/09/25 05:00 97.6 90 18 144/88 (106) 96 97.6 04/08/25 20:00 Nasal Cannula* 2 28 Total Intake and Output 04/08/25 04/08/25 04/09/25 15:00 23:00 07:00 Intake Total 550 ml 1400 ml 130 ml Output Total 400 ml 400 ml 675 ml Balance 150 ml 1000 ml -545 ml medications Current Medications Medications Dose Ordered Sig/Aliya Route Start Time Stop Time Status Last Admin Dose Admin Cefepime HCl 50 ml @ 12.5 mls/hr Q12HR IV 04/07/25 22:00 04/09/25 09:28 12.5 MLS/HR Lorazepam 1 mg ONCE PRN IV 04/07/25 19:15 04/08/25 10:58 1 MG Patient Own Medication 12.5 mg BID PO 04/07/25 22:00 04/09/25 09:28 12.5 MG Atorvastatin Calcium 40 mg DAILY PO 04/08/25 10:00 04/09/25 09:28 40 MG Acetaminophen 650 mg Q6HP PRN PO 04/07/25 20:00 04/08/25 00:47 650 MG Nitroglycerin 0.4 mg Q5MINP PRN SL 04/07/25 20:00 Morphine Sulfate 2 mg Q30M PRN IV 04/07/25 20:00 Diagnostic Test (Pha) 1 strip Q6HR 04/08/25 00:00 04/09/25 06:12 1 STRIP Insulin Human Regular Q6HR SC 04/08/25 00:00 04/09/25 06:15 9 UNITS Dextrose 50 ml UD PRN IV 04/07/25 20:00 objective General: the patient is well developed and nourished. No acute distress. MENTAL STATUS: Awake and alert. Subjective SPEECH, LANGUAGE, HIGHER CORTICAL FUNCTION: no aphasia or dysathria. CRANIAL NERVES: Pupils are equal, round and reactive. EOMs full and conjugate. No nystagmus. Facial sensation intact in all three divisions bilaterally. Mandibular strength intact. Possible right facial weakness of upper motor neuron pattern. Tongue midline. SENSATION: Sensation to touch and pinprick is fine. MOTOR: Normal tone in the upper and lower extremity. Normal muscle bulk. No fasciculations. Uncontrollable movement in the left hand. Muscle strength of the major groups in the extremities is 5/5. REFLEXES: Deep tendon reflexes are symmetrical. No pathological reflexes. CEREBELLAR/COORDINATION: Deferred GAIT/STATION: deferred laboratory and microbiology Laboratory Tests 04/08/25 06:20 Test 04/08/25 06:20 Range/Units Serum Glucose 185 #H 74-106 mg/dL Problem List ALOC, headache Bilateral subdural hematoma ? Metabolic encephalopathy Metabolic acidosis Diabetic ketoacidosis Abnormal liver function tests ? Right facial weakness to rule out acute stroke Status post open heart surgery, on combined aspirin and Plavix at home Hyperglycemia Assessment/Plan Monitoring Supportive treatment Telemetry Urinalysis CT head tomorrow Resume Plavix 75 mg daily Lipitor 80 mg daily Tetrabenazine 12.5 mg bid No specific treatment for the subdural hematoma More recommendation per clinical course This medical document was created using an electronic medical record system with [employer] dictation system. Although this document has been carefully reviewed, there may still be some phonetic and typographical errors. These areas are purely typographical due to imperfections of the software programs, and do not reflect any compromise in the patient's medical care. Prognosis poor Plan discussed with: Patient, Spouse, Other Total Time (mins): 35 VALENTINA NESBITT MD Apr 09, 2025 10:58
[2025-04-09] MEDS: CLOPIDOGREL BISULFATE 75 MG TAB PO ONE (11:00)
--- NOTE | 2025-04-09 14:21 | DVHPN2 ---
Progress Note Date Seen: Apr 08, 2025 Medical Necessity Reason Pt with a Central, PICC or Fol: No Subjective Review of Systems: HEENT:Normal, CVS:Normal, RESPIRATORY:Normal Objective vital signs Vital Sign Date Time Temp Pulse Resp B/P (MAP) Pulse Ox O2 Delivery O2 Flow Rate FiO2 04/09/25 13:00 97.9 81 16 149/76 (100) 97 97.9 04/09/25 08:00 Nasal Cannula* 2 28 Total Intake and Output 04/08/25 04/08/25 04/09/25 15:00 23:00 07:00 Intake Total 550 ml 1400 ml 130 ml Output Total 400 ml 400 ml 675 ml Balance 150 ml 1000 ml -545 ml medications Current Medications Medications Dose Ordered Sig/Aliya Route Start Time Stop Time Status Last Admin Dose Admin Cefepime HCl 50 ml @ 12.5 mls/hr Q12HR IV 04/07/25 22:00 04/09/25 09:28 12.5 MLS/HR Lorazepam 1 mg ONCE PRN IV 04/07/25 19:15 04/08/25 10:58 1 MG Patient Own Medication 12.5 mg BID PO 04/07/25 22:00 04/09/25 09:28 12.5 MG Atorvastatin Calcium 40 mg DAILY PO 04/08/25 10:00 04/09/25 09:28 40 MG Acetaminophen 650 mg Q6HP PRN PO 04/07/25 20:00 04/08/25 00:47 650 MG Nitroglycerin 0.4 mg Q5MINP PRN SL 04/07/25 20:00 Morphine Sulfate 2 mg Q30M PRN IV 04/07/25 20:00 Diagnostic Test (Pha) 1 strip Q6HR 04/08/25 00:00 04/09/25 12:00 1 STRIP Insulin Human Regular Q6HR SC 04/08/25 00:00 04/09/25 12:10 6 UNITS Dextrose 50 ml UD PRN IV 04/07/25 20:00 Clopidogrel Bisulfate 75 mg DAILY PO 04/10/25 10:00 Examination: GENERAL:Normal, HEENT:Normal, NECK:Normal, LUNGS:Normal laboratory and microbiology Laboratory Tests 04/08/25 06:20 Test 04/08/25 06:20 Range/Units Serum Glucose 185 #H 74-106 mg/dL Microbiology Date/Time Source Procedure Growth Status 04/07/25 15:12 Blood Blood Culture - Preliminary NO GROWTH AFTER 24 HOURS OF INCUBATION. Resulted Labs and/or images reviewed: Labs reviewed by me, Image(s) reviewed by me Problem List/Assessment/Plan Problem List/Assessment/Plan 79M who is Spanish speaking BIBA w. the c/c of generalized weakness. Ems report on the pt's calling them and speaking to them due, from the pt having generalized weakness, lethargic. Pt has also been having frequency of urination for an unknown number of days. Denies any other symptoms at this time. Patient has a known history of a facial droop and a stroke unchanged according to EMS per 's report. isn't available at bedside on initial evaluation. Per EMS, patient was ambulatory at the scene independently. PATIENT IS ON PLAVIX AND ASPIRIN CT head initially indicates IMPRESSION: 1. Bilateral presumed chronic subdural hematomas, [id number]-right with areas of acute hemorrhage of the left occipital convexity. 2. Minimal acute blood products with curvilinear appearance along the right subdural hematoma. acute metabolic encephalopathy Sepsis rule out chronic subdural hematomas Intracranial hemorrhage weakness acute CVA with residual dementia DM type II with hyperglycemia 04/08/2025: pending evaluation by neurology Plan discussed with: Patient My Orders My Orders Orders - LIBBY AYALA DO Procedure Category Date Status Time Full Liq Diet DIET 04/08/25 Transmitted Dinner LIBBY AYALA DO Apr 09, 2025 14:21
--- NOTE | 2025-04-09 14:56 | DVHPN2 ---
Progress Note Date Seen: Apr 09, 2025 Medical Necessity Reason Pt with a Central, PICC or Fol: No Subjective Review of Systems: HEENT:Normal, CVS:Normal, RESPIRATORY:Normal Objective vital signs Vital Sign Date Time Temp Pulse Resp B/P (MAP) Pulse Ox O2 Delivery O2 Flow Rate FiO2 04/09/25 13:00 97.9 81 16 149/76 (100) 97 97.9 04/09/25 08:00 Nasal Cannula* 2 28 Total Intake and Output 04/08/25 04/08/25 04/09/25 15:00 23:00 07:00 Intake Total 550 ml 1400 ml 130 ml Output Total 400 ml 400 ml 675 ml Balance 150 ml 1000 ml -545 ml medications Current Medications Medications Dose Ordered Sig/Aliya Route Start Time Stop Time Status Last Admin Dose Admin Cefepime HCl 50 ml @ 12.5 mls/hr Q12HR IV 04/07/25 22:00 04/09/25 09:28 12.5 MLS/HR Lorazepam 1 mg ONCE PRN IV 04/07/25 19:15 04/08/25 10:58 1 MG Patient Own Medication 12.5 mg BID PO 04/07/25 22:00 04/09/25 09:28 12.5 MG Atorvastatin Calcium 40 mg DAILY PO 04/08/25 10:00 04/09/25 09:28 40 MG Acetaminophen 650 mg Q6HP PRN PO 04/07/25 20:00 04/08/25 00:47 650 MG Nitroglycerin 0.4 mg Q5MINP PRN SL 04/07/25 20:00 Morphine Sulfate 2 mg Q30M PRN IV 04/07/25 20:00 Diagnostic Test (Pha) 1 strip Q6HR 04/08/25 00:00 04/09/25 12:00 1 STRIP Insulin Human Regular Q6HR SC 04/08/25 00:00 04/09/25 12:10 6 UNITS Dextrose 50 ml UD PRN IV 04/07/25 20:00 Clopidogrel Bisulfate 75 mg DAILY PO 04/10/25 10:00 Examination: GENERAL:Normal, HEENT:Normal, NECK:Normal laboratory and microbiology Laboratory Tests 04/08/25 06:20 Test 04/08/25 06:20 Range/Units Serum Glucose 185 #H 74-106 mg/dL Microbiology Date/Time Source Procedure Growth Status 04/07/25 15:12 Blood Blood Culture - Preliminary NO GROWTH AFTER 24 HOURS OF INCUBATION. Resulted Labs and/or images reviewed: Labs reviewed by me, Image(s) reviewed by me Problem List/Assessment/Plan Problem List/Assessment/Plan 79M who is Mohawk speaking BIBA w. the c/c of generalized weakness. Ems report on the pt's calling them and speaking to them due, from the pt having generalized weakness, lethargic. Pt has also been having frequency of urination for an unknown number of days. Denies any other symptoms at this time. Patient has a known history of a facial droop and a stroke unchanged according to EMS per 's report. isn't available at bedside on initial evaluation. Per EMS, patient was ambulatory at the scene independently. PATIENT IS ON PLAVIX AND ASPIRIN CT head initially indicates IMPRESSION: 1. Bilateral presumed chronic subdural hematomas, [id number]-[id number]-[id number]-right with areas of acute hemorrhage of the left occipital convexity. 2. Minimal acute blood products with curvilinear appearance along the right subdural hematoma. acute metabolic encephalopathy Sepsis rule out chronic subdural hematomas Intracranial hemorrhage weakness acute CVA with residual dementia DM type II with hyperglycemia 04/08/2025: pending evaluation by neurology 04/09/2025: pt's MRI indicates 1. No acute infarct. 2. Chronic bilateral subdural hematomas, right greater than left. Superimposed acute subdural hemorrhage in the left occipital region, similar to prior study. 3. Acute small subdural hemorrhage in the right parietal region, similar to prior CT. 4. No midline shift or mass effect. PT/OT ordered to evaluate for rehab needs per neurology, pt can be restarted on Plavix if pt needs rehab, pt can be either discharged to home with HH or SNF Plan discussed with: Other (nursing) My Orders My Orders Orders - LIBBY AYALA DO Procedure Category Date Status Time Full Liq Diet DIET 04/08/25 Transmitted Dinner Pt Request For Service PT 04/09/25 Logged 14:21 LIBBY AYALA DO Apr 09, 2025 14:56
[2025-04-10] VITALS (8 sets, daily range): BP systolic 125–145; BP diastolic 73–83; PULSE 77–100; RESP 17–18; TEMP 97.4–98.1; O2SAT 93–95
[2025-04-10] MEDS: CLOPIDOGREL BISULFATE 75 MG TAB PO SCH (09:12)
--- NOTE | 2025-04-10 11:08 | DVH ---
EXAM: CT HEAD WITHOUT CONTRAST INDICATION: Subdural hematoma TECHNIQUE: CT of the head without intravenous contrast. Radiation Dose Information: CT Dose: CTDI volume is 54.09 mGy. Dose-length product is 1886.15 mGy*cm The dose indicators for CT are the volume Computed Tomography (CT) Dose Index (CTDIvol) and the Dose Length Product (DLP), and are measured in units of mGy and mGy-cm, respectively. These indicators are not patient dose, but values generated from the CT scanner acquisition factors. The report includes radiation exposure data for exposures received during this examination. COMPARISON: MRI BRAIN HEAD WO CONTRAST on DOS: 04/08/25, US CAROTID DUPLX W COLOR DOP on DOS: 04/07/25, CT HEAD WITHOUT CONTRAST on DOS: 04/07/25, CT HEAD WITHOUT CONTRAST on DOS: 08/23/24, CT HEAD WITHOUT CONTRAST on DOS: 08/27/23 FINDINGS: Chronic bilateral subdural hematomas, right greater than left. Superimposed acute subdural hemorrhage in the left occipital region, similar to prior study. Acute small subdural hemorrhage in the right parietal region, similar to prior CT. No midline shift or mass effect. The ventricles, sulci and cisterns are age appropriate. The villarreal-white differentiation is intact. Patchy periventricular and subcortical white matter hypoattenuation is nonspecific but may be related to small vessel ischemic disease. The visualized paranasal sinuses and mastoid air cells are clear. The surrounding soft tissues and osseous structures are unremarkable. IMPRESSION: 1. No interval change. Chronic bilateral subdural hematomas, right greater than left. Superimposed acute subdural hemorrhage in the left occipital region, similar to prior study. Acute small subdural hemorrhage in the right parietal region, similar to prior CT. 4. No midline shift or mass effect.
--- NOTE | 2025-04-10 15:16 | DVHDS2 ---
Discharge Summary Date of Admission Apr 07, 2025 at 19:46 Date of Discharge: Apr 10, 2025 Labs/Diagnostic Data: Laboratory Results Test 04/10/25 11:42 04/08/25 06:20 04/07/25 18:11 04/07/25 17:20 POC Glucose 327 mg/dl (70-106) White Blood Count 9.4 10^3/uL (4.4-10.8) Red Blood Count 3.99 10^6/uL (4.5-5.90) Hemoglobin 12.4 g/dL (13.5-17.5) Hematocrit 36.5 % (41.0-53.0) Mean Corpuscular Volume 91.4 fL (80.0-100.0) Mean Corpuscular Hemoglobin 31.0 pg (28.0-32.0) Mean Corpuscular Hemoglobin Concent 34.0 g/dL (32.0-36.0) Red Cell Distribution Width 14.2 % (11.8-14.3) Platelet Count 140 10^3/uL (140-450) Mean Platelet Volume 7.8 fL (6.9-10.8) Neutrophils (%) (Auto) 77.6 % (37.0-80.0) Lymphocytes (%) (Auto) 14.5 % (10.0-50.0) Monocytes (%) (Auto) 7.7 % (0.0-12.0) Eosinophils (%) (Auto) 0.0 % (0.0-7.0) Basophils (%) (Auto) 0.2 % (0.0-2.0) Neutrophils # (Auto) 7.3 10 ^3/uL (1.6-8.6) Lymphocytes # (Auto) 1.4 10 ^3/uL (0.4-5.4) Monocytes # (Auto) 0.7 10 ^3/uL (0-1.3) Eosinophils # (Auto) 0 10 ^3/uL (0-0.8) Basophils # (Auto) 0 10 ^3/uL (0-0.2) Nucleated Red Blood Cells 0.2 % Sodium Level 139 mmol/L (136-145) Potassium Level 4.7 mmol/L (3.5-5.1) Chloride Level 106 mmol/L (98-107) Carbon Dioxide Level 17 mmol/L (20-31) Anion Gap 16 (5-15) Blood Urea Nitrogen 23 mg/dL (9-23) Creatinine 1.26 mg/dL (0.700-1.30) Glomerular Filtration Rate Calc 58 mL/min (>90) BUN/Creatinine Ratio 18.3 (10.0-20.0) Serum Glucose 185 mg/dL (74-106) Calcium Level 8.7 mg/dL (8.7-10.4) Total Bilirubin 1.7 mg/dL (0.2-1.0) Aspartate Amino Transferase (AST) 20 U/L (13-40) Alanine Aminotransferase (ALT) 42 U/L (7-40) Alkaline Phosphatase 93 U/L (46-116) Total Protein 6.3 g/dL (5.7-8.2) Albumin 3.7 g/dL (3.2-4.8) Urine Color Light-yellow (Yellow) Urine Clarity Clear (Clear) Urine pH 5.0 (5.0-9.0) Urine Specific [place] 1.031 (1.001-1.035) Urine Protein Negative (Negative) Urine Ketones 2+ (Negative) Urine Blood Negative /uL (Negative) Urine Nitrite Negative (Negative) Urine Bilirubin Negative (Negative) Urine Urobilinogen Normal mg/dL (Negative) Urine Leukocyte Esterase Negative /uL (Negative) Urine RBC <1 /hpf (0 - 3) Urine Microscopic WBC 1 /HPF (0-3) Urine Squamous Epithelial Cells Few /hpf (<5) Urine Amorphous Crystals Few /hpf (None Seen) Urine Bacteria None seen /hpf (None Seen) Urine Mucus Few (None Seen) Urine Glucose 4+ mg/dL (Normal) Lactic Acid Level 1.7 mmol/L (0.4-2.0) Test 04/07/25 15:05 04/07/25 14:45 Prothrombin Time 10.3 sec (9.3-11.8) Prothrombin Time INR 0.97 (0.9-1.15) Activated Partial Thromboplast Time 25.1 SEC (24.5-34.5) Magnesium Level 2.4 mg/dL (1.6-2.6) B-Type Natriuretic Peptide 70.99 pg/mL (0-100) Ammonia 14 umol/L (11-32) Beta-Hydroxybutyric Acid > 4.500 mmol/L (< 0.4) Other Laboratory Tests 04/08/25 06:20 Brief Hx & Hospital Course: 1M who is Romansh speaking BIBA w. the c/c of generalized weakness. Ems report on the pt's calling them and speaking to them due, from the pt having generalized weakness, lethargic. Pt has also been having frequency of urination for an unknown number of days. Denies any other symptoms at this time. Patient has a known history of a facial droop and a stroke unchanged according to EMS per 's report. isn't available at bedside on initial evaluation. Per EMS, patient was ambulatory at the scene independently. PATIENT IS ON PLAVIX AND ASPIRIN CT head initially indicates IMPRESSION: 1. Bilateral presumed chronic subdural hematomas, [id number]-[id number]-right with areas of acute hemorrhage of the left occipital convexity. 2. Minimal acute blood products with curvilinear appearance along the right subdural hematoma. acute metabolic encephalopathy Sepsis rule out chronic subdural hematomas Intracranial hemorrhage rule out weakness acute CVA with residual dementia DM type II with hyperglycemia weakness, inability to ambulate 04/09/2025: pt's MRI indicates 1. No acute infarct. 2. Chronic bilateral subdural hematomas, right greater than left. Superimposed acute subdural hemorrhage in the left occipital region, similar to prior study. 3. Acute small subdural hemorrhage in the right parietal region, similar to prior CT. 4. No midline shift or mass effect. PT/OT ordered to evaluate for rehab needs per neurology, pt can be restarted on Plavix if pt needs rehab, pt can be either discharged to home with or SNF Condition at Discharge: Fair Final Diagnosis/Problems List see above Discharge Disposition: Home Discharge Instruct/Medications Diet: Cardiac 2g Na,low cholest Activity: No Restrictions, As Tolerated Scheduled Carvedilol (Coreg), 6.25 MG PO Q12HR Clopidogrel Bisulfate (Clopidogrel), 75 MG PO DAILY Empagliflozin (Jardiance), 10 MG PO DAILY Fluconazole (Fluconazole), 100 MG PO DAILY Glipizide (Glipizide), 2 TAB PO BID, (Reported) Lisinopril (Zestril Tablet), 20 MG PO DAILY, (Reported) Lisinopril (Lisinopril), 1 TAB PO DAILY, (Reported) Metformin Hydrochloride (Metformin Hcl), 1 TAB PO TID, (Reported) Pioglitazone Hydrochloride (Pioglitazone Hcl), 1 TAB PO DAILY, (Reported) Pravastatin Sodium (Pravachol Tablet), 20 MG PO DAILY, (Reported) Spironolactone (Aldactone), 12.5 MG PO DAILY Tetrabenazine (Tetrabenazine), 12.5 MG PO BID, (Reported) Valsartan (Valsartan), 40 MG PO DAILY Discharge Statement: "Patient was advised to return to the ER or call 911 if any headaches, dizziness, shortness of breath, chest pain, abdominal pain, bleeding, fevers, or worsening of medical condition. Patient was counseled about treatment plan, medications, possible side effects, patientverbalized understanding. All questions were answered to the best of my ability. This discharge took greater then 30 minutes in planning, reviewing documentation, counseling the patient, and discussing with other team members." ASSESSMENT ASSESSMENT Assessment LIBBY AYALA DO Apr 10, 2025 15:16
--- NOTE | 2025-04-10 21:21 | DVHPN2 ---
Progress Note - Dictate Date Seen: Apr 10, 2025 Medical Necessity Reason Pt with a Central, PICC or Fol: No Subjective Mr. Munoz is a 79 years old right-handed gentleman with a history of hypertension, diabetes, dyslipidemia, coronary artery disease, the patient came to the [facility] on 04/07/2025 with a chief complaint of low appetite, general weakness, lethargy. I saw him on 08/22/2023 for stroke (MRI head negative) I have seen and examined the patient, I have discussed with his nurse, in the room, he is doing fine, awake, oriented to person, place, he knows year, monthly date, he is easily agitated, he has not had headache, but no new complaints Home medication bottles: Aspirin 81 mg daily, Plavix 75 mg daily, pravastatin 40 mg daily, lisinopril, carvedilol, tetrabenazine 12.5 mg b.i.d. I have told that his son wanted talked to me, but he did not answer when I called him at [phone], CBC, 04/07/2025: Unremarkable BUN/CR, 04/07/2025: 24/1.6 GFR, 04/07/2025: 43 HCO3, 04/07/2025: 18, 04/08/2025: 17 Anion gap, 04/07/2025: 17, 04/08/2020 5:16 a.m. TBI/AST/ALT/AP, 08/22/2023: 1.193, 04/08/2025: 0.7/93 Ammonia, 04/07/2025: 14 Glucose: 04/07/25: 300, 04/08/2025: 185 Beta hydroxybutyric acid 04/07/2025: >4.5 TG/CHO L/LDL/HDL, 08/23/2023: 140/156/100/40, 04/07/2025: 2//50/114 TSH, 08/2023: 0.8 Echocardiogram, 04/08/2025, MILD LVH AND MILD LV DIASTOLIC DYSFUNCTION LV EF IS 67% HEAVILY CALCIFIED POSTERIOR MITRAL LEAFLET AND ANNULUS NORMAL RV FUNCTION NO EFFUSION NORMAL TV,PV AND AORTIC VALVES Carotid Doppler, 04/07/2025: Study terminated prematurely by combative patient. CT head, 08/22/2023: No CT evidence of acute intracranial abnormality. If clinically concern for acute ischemia, MRI may be useful in further evaluation CT head, 04/07/2025: 1. Bilateral presumed chronic subdural hematomas, [id number] with areas of acute hemorrhage of the left occipital convexity. 2. Minimal acute blood products with curvilinear appearance along the right subdural hematoma (I saw evidence suggestive of bilateral acute/subacute subdural hemorrhage) CT head, 04/10/2025: 1. No interval change. Chronic bilateral subdural hematomas, right greater than left. Superimposed acute subdural hemorrhage in the left occipital region, similar to prior study. Acute small subdural hemorrhage in the right parietal region, similar to prior CT. 4. No midline shift or mass effect MRI head, 08/23/2023: No acute infarct, intracranial hemorrhage, mass effect, or hydrocephalus. There is periventricular/deep white matter T2/FLAIR hyperintensity is nonspecific, but most commonly associated with chronic microvascular disease.(addendum: Tiny acute infarct in the left median occipital lobe) vital signs Vital Sign Date Time Temp Pulse Resp B/P (MAP) Pulse Ox O2 Delivery O2 Flow Rate FiO2 04/10/25 16:42 97.8 88 18 139/83 (101) 94 97.8 04/10/25 08:00 Room Air* 0 21 Total Intake and Output 04/09/25 04/09/25 04/10/25 15:00 23:00 07:00 Intake Total 50 ml 1400 ml 450 ml Output Total 850 ml 800 ml Balance 50 ml 550 ml -350 ml medications Current Medications Medications Dose Ordered Sig/Aliya Route Start Time Stop Time Status Last Admin Dose Admin Cefepime HCl 50 ml @ 12.5 mls/hr Q12HR IV 04/07/25 22:00 04/10/25 09:11 12.5 MLS/HR Lorazepam 1 mg ONCE PRN IV 04/07/25 19:15 04/08/25 10:58 1 MG Patient Own Medication 12.5 mg BID PO 04/07/25 22:00 04/10/25 09:12 12.5 MG Atorvastatin Calcium 40 mg DAILY PO 04/08/25 10:00 04/10/25 09:12 40 MG Acetaminophen 650 mg Q6HP PRN PO 04/07/25 20:00 04/08/25 00:47 650 MG Nitroglycerin 0.4 mg Q5MINP PRN SL 04/07/25 20:00 Morphine Sulfate 2 mg Q30M PRN IV 04/07/25 20:00 Diagnostic Test (Pha) 1 strip Q6HR 04/08/25 00:00 04/10/25 17:47 1 STRIP Insulin Human Regular Q6HR SC 04/08/25 00:00 04/10/25 18:08 6 UNITS Dextrose 50 ml UD PRN IV 04/07/25 20:00 Clopidogrel Bisulfate 75 mg DAILY PO 04/10/25 10:00 04/10/25 09:12 75 MG objective General: the patient is well developed and nourished. No acute distress. MENTAL STATUS: Awake and alert. Subjective SPEECH, LANGUAGE, HIGHER CORTICAL FUNCTION: no aphasia or dysathria. CRANIAL NERVES: Pupils are equal, round and reactive. EOMs full and conjugate. No nystagmus. Facial sensation intact in all three divisions bilaterally. Mandibular strength intact. Possible right facial weakness of upper motor neuron pattern. Tongue midline. SENSATION: Sensation to touch and pinprick is fine. MOTOR: Normal tone in the upper and lower extremity. Normal muscle bulk. No fasciculations. Uncontrollable movement in the left hand. Muscle strength of the major groups in the extremities is 5/5. REFLEXES: Deep tendon reflexes are symmetrical. No pathological reflexes. CEREBELLAR/COORDINATION: Deferred GAIT/STATION: deferred laboratory and microbiology Laboratory Tests 04/08/25 06:20 Test 04/08/25 06:20 Range/Units Serum Glucose 185 #H 74-106 mg/dL Problem List ALOC, headache Bilateral subdural hematoma ? Metabolic encephalopathy Metabolic acidosis Diabetic ketoacidosis Acute stroke Abnormal liver function tests ? Right facial weakness to rule out acute stroke Status post open heart surgery, on combined aspirin and Plavix at home Hyperglycemia Assessment/Plan Monitoring Supportive treatment Telemetry Urinalysis CT head tomorrow Plavix 75 mg daily Lipitor 80 mg daily Tetrabenazine 12.5 mg bid No specific treatment for the subdural hematoma More recommendation per clinical course This medical document was created using an electronic medical record system with [employer] system. Although this document has been carefully reviewed, there may still be some phonetic and typographical errors. These areas are purely typographical due to imperfections of the software programs, and do not reflect any compromise in the patient's medical care. Prognosis poor Plan discussed with: Other Total Time (mins): 35 VALENTINA NESBITT MD Apr 10, 2025 21:21
[2025-04-11 01:00] VITALS: BP 130/82; PULSE 91; RESP 18; TEMP 97.3; O2SAT 95
[2025-04-11 05:00] VITALS: BP 143/88; PULSE 98; RESP 19; TEMP 97.4; O2SAT 95
[2025-04-11 08:00] VITALS: PULSE 101
[2025-04-11 09:12] VITALS: BP 143/80; PULSE 95; RESP 20; TEMP 98.3; O2SAT 95
--- NOTE | 2025-04-11 16:24 | DVHPN2 ---
Progress Note Date Seen: Apr 11, 2025 Medical Necessity Reason Pt with a Central, PICC or Fol: No Objective vital signs Vital Sign Date Time Temp Pulse Resp B/P (MAP) Pulse Ox O2 Delivery O2 Flow Rate FiO2 04/11/25 09:12 98.3 95 20 143/80 (101) 95 98.3 04/11/25 08:00 Room Air* 0 21 Total Intake and Output 04/10/25 04/10/25 04/11/25 15:00 23:00 07:00 Intake Total 50 ml 1247 ml 590 ml Output Total 800 ml 600 ml Balance 50 ml 447 ml -10 ml laboratory and microbiology Laboratory Tests 04/08/25 06:20 Test 04/08/25 06:20 Range/Units Serum Glucose 185 #H 74-106 mg/dL Microbiology Date/Time Source Procedure Growth Status 04/07/25 15:12 Blood Blood Culture - Preliminary NO GROWTH AFTER 72 HOURS OF INCUBATION. Resulted Labs and/or images reviewed: Labs reviewed by me, Image(s) reviewed by me Problem List/Assessment/Plan Problem List/Assessment/Plan 79M who is Armenian speaking BIBA w. the c/c of generalized weakness. Ems report on the pt's calling them and speaking to them due, from the pt having generalized weakness, lethargic. Pt has also been having frequency of urination for an unknown number of days. Denies any other symptoms at this time. Patient has a known history of a facial droop and a stroke unchanged according to EMS per 's report. isn't available at bedside on initial evaluation. Per EMS, patient was ambulatory at the scene independently. PATIENT IS ON PLAVIX AND ASPIRIN CT head initially indicates IMPRESSION: 1. Bilateral presumed chronic subdural hematomas, [id number]-right with areas of acute hemorrhage of the left occipital convexity. 2. Minimal acute blood products with curvilinear appearance along the right subdural hematoma. acute metabolic encephalopathy Sepsis rule out chronic subdural hematomas Intracranial hemorrhage weakness acute CVA with residual dementia DM type II with hyperglycemia 04/08/2025: pending evaluation by neurology 04/09/2025: pt's MRI indicates 1. No acute infarct. 2. Chronic bilateral subdural hematomas, right greater than left. Superimposed acute subdural hemorrhage in the left occipital region, similar to prior study. 3. Acute small subdural hemorrhage in the right parietal region, similar to prior CT. 4. No midline shift or mass effect. PT/OT ordered to evaluate for rehab needs per neurology, pt can be restarted on Plavix if pt needs rehab, pt can be either discharged to home with or SNF 04/11/2025 son picked up pt this AM Plan discussed with: Other (nursning) LIBBY AYALA DO Apr 11, 2025 16:23
== END 2025-04-11 13:25 | disposition home or self-care (01) | DRG 64 ==
LOC: ER 14:44 → EDUNIT# 14:44 → EDBD 14:44 → OVERFLOW 19:46 → WEST WING 23:40 → TELE-WESTW 04-08 02:31
PROVIDERS: ADMIT Internal Medicine; ATTEND Internal Medicine
DX: I62.01 Nontraumatic acute subdural hemorrhage (principal); E11.10 Type 2 diabetes mellitus with ketoacidosis without coma; I63.9 Cerebral infarction, unspecified; G93.41 Metabolic encephalopathy; Z79.02 Long term (current) use of antithrombotics/antiplatelets; E11.65 Type 2 diabetes mellitus with hyperglycemia; F03.90 Unspecified dementia, unspecified severity, without behavioral disturbance, psychotic disturbance, mood disturbance, and anxiety; I10 Essential (primary) hypertension; I25.10 Atherosclerotic heart disease of native coronary artery without angina pectoris; E78.5 Hyperlipidemia, unspecified; Z83.3 Family history of diabetes mellitus; Z79.899 Other long term (current) drug therapy; Z86.73 Personal history of transient ischemic attack (TIA), and cerebral infarction without residual deficits; Z79.82 Long term (current) use of aspirin; Z82.49 Family history of ischemic heart disease and other diseases of the circulatory system
CPT/HCPCS: 36415; 70450; 70551; 71045; 80053; 81001; 82010; 82140; 82962; 83605; 83735; 83880; 85025; 85610; 85730; 87040; 93005; 93306; 93886; 96361; 96365; 96375; 97110; 97116; 97163; 97530; G0378; J1100; J1815

== ENCOUNTER 2025-06-01 07:43 | Emergency (ER) | payer MEDICARE ==
[~2025-06-01] VITALS: Ht 172.7 cm; Wt 62.4 kg
--- NOTE | 2025-06-01 08:06 | ED.PDOC ---
History of Present Illness HPI Comments This is a 79 year old male presenting to the ED with chief complaint of abnormal labs. Patient reports that he had a CT Brain performed yesterday, ordered by his PCP due to recent admission in April for suspected CVA. Patient relays that his PCP called him this morning and was advised to come to the ED due to results showing acute brain bleed. Patient states he has previous left upper arm deficits from previous CVA, but he has no new symptoms at this time. Patient denies any headache, dizziness, N/V, numbness, weakness, or tingling. Chief Complaint: Abnormal LAB's Time Seen by MD: 08:01 Primary Care Provider: SYLVIA Reviewed Notes: Nurses Notes, Medications, Allergies Allergies: Coded Allergies: NO KNOWN ALLERGIES (Unverified , 03/09/14) Home Meds Active Scripts Valsartan (Valsartan) 80 Mg Tab, 40 MG PO DAILY for 30 Days, #15 TAB 3 Refills Prov:AYALALIBBY Collins DO 09/03/24 Spironolactone (Aldactone) 25 Mg Tab, 12.5 MG PO DAILY for 30 Days, #15 TAB 3 Refills Prov:LIBBY AYALA DO 09/03/24 Fluconazole (Fluconazole) 100 Mg Tab, 100 MG PO DAILY for 7 Days, #7 TAB 0 Refills Prov:LIBBY AYALA DO 09/03/24 Empagliflozin (Jardiance) 10 Mg Tab, 10 MG PO DAILY for 30 Days, #30 TAB 3 Refills Prov:AYALALIBBY Collins DO 09/03/24 Clopidogrel Bisulfate (CLOPIDOGREL) 75 Mg Tab, 75 MG PO DAILY for 30 Days, #30 TAB 3 Refills Prov:LIBBY AYALA DO 09/03/24 Carvedilol (COREG) 12.5 Mg Tab, 6.25 MG PO Q12HR for 30 Days, #30 TAB 3 Refills Prov:LIBBY AYALA DO 09/03/24 Reported Medications Tetrabenazine (Tetrabenazine) 12.5 Mg Tab, 12.5 MG PO BID, TAB 08/23/24 Lisinopril (Lisinopril) 20 Mg Tab, 1 TAB PO DAILY 08/22/23 Glipizide (Glipizide) 10 Mg Tab, 2 TAB PO BID 08/22/23 Pioglitazone Hydrochloride (PIOGLITAZONE HCL) 15 Mg Tab, 1 TAB PO DAILY 08/22/23 Metformin Hydrochloride (Metformin Hcl) 850 Mg Tab, 1 TAB PO TID 08/22/23 Pravastatin Sodium (PRAVACHOL TABLET) 20 Mg Tb, 20 MG PO DAILY 03/09/14 Lisinopril (ZESTRIL TABLET) 20 Mg Tb, 20 MG PO DAILY 03/09/14 Information Source: Patient, Spouse Mode of Arrival: Ambulatory Severity: Moderate Timing: Hours Duration: Since onset Prehospital treatment: None Medication Refill: For: Other (CT results) Past Medical History PAST MEDICAL HISTORY: DM, High Lipids, HTN, TIA Surgical History: Denies all surgeries Family History Family History: Reviewed,noncontributory to illness Social History Smoker: Non-Smoker Alcohol: Denies ETOH Use Drugs: Denies Drug Use Lives In: Home Constitutional: denies: chills, diaphoresis, fatigue, fever, malaise, sweats, weakness, others EENTM: denies: blurred vision, double vision, ear bleeding, ear discharge, ear drainage, ear pain, ear ringing, eye pain, eye redness, hearing loss, mouth pain, mouth swelling, nasal discharge, nose bleeding, nose congestion, nose pain, photophobia, tearing, throat pain, throat swelling, voice changes, others Respiratory: denies: cough, hemoptysis, orthopnea, SOB at rest, shortness of breath, SOB with excertion, stridor, wheezing, others Cardiovascular: denies: chest pain, dizzy spells, diaphoresis, Dyspnea on exertion, edema, irregular heart beat, left arm pain, lightheadedness, palpitations, PND, syncope, others Gastrointestinal: denies: abdomen distended, abdominal pain, blood streaked bowels, constipated, diarrhea, dysphagia, difficulty swallowing, hematemesis, melena, nausea, poor appetite, poor fluid intake, rectal bleeding, rectal pain, vomiting, others Genitourinary: denies: burning, dysuria, flank pain, frequency, hematuria, incontinence, penile discharge, penile sore, pain, testicle pain, testicle swelling, urgency, others Neurological: denies: dizziness, fainting, headache, left sided numbness, left sided weakness, numbness, paresthesia, pre-existing deficit, right sided numbness, right sided weakness, seizure, speech problems, tingling, tremors, weakness, others Musculoskeletal: denies: back pain, gout, joint pain, joint swelling, muscle pain, muscle stiffness, neck pain, others Integumetry: denies: bruises, change in color, change in hair/nails, dryness, laceration, lesions, lumps, rash, wounds, others Allergic/Immunocompromised: denies: Difficulty Healing, Frequent Infections, Hives, Itching, others Hematologic/Lymphatic: denies: anemia, blood clots, easy bleeding, easy bruising, swollen glands, others Endocrine: denies: excessive hunger, excessive sweating, excessive thirst, excessive urination, flushing, intolerance to cold, intolerance to heat, unexplained weight gain, unexplained weight loss, others Psychiatric: denies: anxiety, bipolar disorder, depression, hopeless, panic disorder, schizophrenia, sleepless, suicidal, others All Other Systems: Reviewed and Negative Physical Exam General Appearance: Moderate Distress, Normal HEENT: Normal ENT Inspection, Pharynx Normal, TMs Normal Neck: Full Range of Motion, Non-Tender, Normal, Normal Inspection Respiratory: Chest Non-Tender, Lungs Clear, No Accessory Muscle Use, No Respiratory Distress, Normal Breath Sounds Cardiovascular: No Edema, No JVD, No Murmur, No Gallop, Normal Peripheral Pulses, Regular Rate/Rhythm Breast Exam: Deferred Gastrointestinal: No Organomegaly, Non Tender, No Pulsatile Mass, Normal Bowel Sounds, Soft Genitalia: Deferred Pelvic: Deferred Rectal: Deferred Extremities: No calf tenderness, Normal capillary refill, Non-tender, No pedal edema, Other (Jerking movement of the left upper extremity) Musculoskeletal : Apperance: Normal 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 Was a procedure done?: No Differential Dx Considerations may include: Anemia Electrolyte imbalance X-Ray, Labs, Meds, VS Vital Signs Date Time Temp Pulse Resp B/P (MAP) Pulse Ox O2 Delivery O2 Flow Rate FiO2 06/01/25 10:49 62 18 97 Room Air 06/01/25 10:49 98.2 62 18 133/68 (89) 97 98.2 12/28/25 07:46 98.1 77 16 162/80 95 98.1 Lab Test 06/01/25 10:53 06/01/25 08:09 Range/Units POC Glucose 156 H 70-106 mg/dl White Blood Count 5.9 4.4-10.8 10^3/uL Red Blood Count 4.44 L 4.5-5.90 10^6/uL Hemoglobin 13.9 13.5-17.5 g/dL Hematocrit 41.2 41.0-53.0 % Mean Corpuscular Volume 92.7 80.0-100.0 fL Mean Corpuscular Hemoglobin 31.4 28.0-32.0 pg Mean Corpuscular Hemoglobin Concent 33.8 32.0-36.0 g/dL Red Cell Distribution Width 15.0 H 11.8-14.3 % Platelet Count 151 140-450 10^3/uL Mean Platelet Volume 7.2 6.9-10.8 fL Neutrophils (%) (Auto) 70.8 37.0-80.0 % Lymphocytes (%) (Auto) 20.1 10.0-50.0 % Monocytes (%) (Auto) 5.6 0.0-12.0 % Eosinophils (%) (Auto) 2.5 0.0-7.0 % Basophils (%) (Auto) 1.0 0.0-2.0 % Neutrophils # (Auto) 4.2 1.6-8.6 10 ^3/uL Lymphocytes # (Auto) 1.2 0.4-5.4 10 ^3/uL Monocytes # (Auto) 0.3 0-1.3 10 ^3/uL Eosinophils # (Auto) 0.1 0-0.8 10 ^3/uL Basophils # (Auto) 0.1 0-0.2 10 ^3/uL Nucleated Red Blood Cells 0.0 % Sodium Level 139 136-145 mmol/L Potassium Level 4.8 3.5-5.1 mmol/L Chloride Level 106 98-107 mmol/L Carbon Dioxide Level 25 20-31 mmol/L Anion Gap 8 5-15 Blood Urea Nitrogen 22 9-23 mg/dL Creatinine 1.41 H 0.700-1.30 mg/dL Glomerular Filtration Rate Calc 50 >90 mL/min BUN/Creatinine Ratio 15.6 10.0-20.0 Serum Glucose 198 H 74-106 mg/dL Calcium Level 9.7 8.7-10.4 mg/dL [place] [address] Ph: [phone] DIAGNOSTIC IMAGING Diagnostic Imaging Report : [id number] Signed PATIENT: DIDI MANTILLA ACCT: [id number] UNIT: [id number] : 1945 LOC: ER ROOM / BED: / AGE / SEX: 79 / M ADM STATUS: REG ER SERVICE [id number] ORDERING PHYSICIAN: MYLA CARLTON MD PROCEDURE(s): HWOCT - HEAD WITHOUT CONTRAST REASON: cva ORDER NUMBER(s): [id number], ACCESSION NUMBER(s): [id number] CT HEAD WITHOUT CONTRAST INDICATION: cva COMPARISON: CT HEAD WITHOUT CONTRAST on DOS: 04/10/25, MRI BRAIN HEAD WO CONTRAST on DOS: 04/08/25, CT HEAD WITHOUT CONTRAST on DOS: 04/07/25, CT HEAD WITHOUT CONTRAST on DOS: 08/23/24, CT HEAD WITHOUT CONTRAST on DOS: 08/27/23 TECHNIQUE: CT of the head without intravenous contrast. RADIATION DOSE: CTDIvol: 54 mGy, DLP: 966 mGy*cm FINDINGS: Acute left subdural hematoma is seen measuring up to 1.8 cm in thickness. 8 mm rightward midline shift. No acute territorial infarction. No ventriculomegaly. The visualized paranasal sinuses and mastoid air cells are clear. The surrounding soft tissues and osseous structures are unremarkable. IMPRESSION: 1. Acute left subdural hematoma measuring up to 1.8 cm in thickness with 8 mm rightward midline shift. Critical Findings: Acute left subdural hematoma with 8 mm midline shift indicates a life-threatening condition requiring urgent attention. Findings discussed with , at 06/01/2025, who acknowledged receipt and understanding of the findings. Critical findings discussed with Dr. Carlton by Dr. Pulido via phone on 06/01/2025 09:03 AM. ATED BY: RONNIE PULIDO MD DICTATED DATE/TIME: 06/01/25903 SIGNED BY: RONNIE PULIDO MD SIGNED DATE/TIME: 06/01/25 0904 CC: Patient alert. Ambulating. Vitals stable. Answering questions. History of CVA. CT of the head reviewed does show subdural hematoma. No recent trauma. Transferred for higher level of care. Continue monitoring. Time of 1ST Reevaluation: 09:01 Reevaluation 1ST: Unchanged Patient Education/Counseling: Diagnosis, Treatment Family Education/Counseling: Diagnosis, Treatment SEPSIS Sepsis Screen Physician Orders Head Without Contrast (06/01/25 07:59) Urinalysis (06/01/25 07:59) Imaging Transfer Request (06/01/25 10:07) Vital Signs Date Time Temp Pulse Resp B/P (MAP) Pulse Ox O2 Delivery O2 Flow Rate FiO2 06/01/25 10:49 62 18 97 Room Air 06/01/25 10:49 98.2 62 18 133/68 (89) 97 98.2 06/01/25 07:46 98.1 77 16 162/80 95 98.1 Laboratory Tests Test 06/01/25 08:09 White Blood Count 5.9 10^3/uL (4.4-10.8) Departure 1 Departure Time of Disposition: 09:59 Impression: Primary Impression: Subdural hematoma Disposition: 02 SHORT TERM HOSPITAL Admit to: Med Surg Condition: Guarded Critical Care Note Critical Care Time?: Yes (90 min-critical care time only) Stability Stability form required: No Heart Score Heart Score: Heart Score Response (Comments) Value History N/A 0 EKG N/A 0 Age N/A 0 Risk Factors N/A 0 Troponin N/A 0 Total 0 I personally scribed for MYLA CARLTON MD ([email or web address]) on 06/01/25 at 08:06. Electronically submitted by Galindo Lugo ([email or web address]). I personally scribed for MYLA CARLTON MD ([email or web address]) on 06/01/25 at 09:19. Electronically submitted by Galindo Lugo ([email or web address]). MYLA CARLTON MD Jun 01, 2025 08:06
[2025-06-01 08:18] LABS: Hematocrit 41.2 % (41.0-53.0); Hemoglobin 13.9 g/dL (13.5-17.5); Mean Corpuscular Hemoglobin 31.4 pg (28.0-32.0); Mean Corpuscular Volume 92.7 fL (80.0-100.0); Nucleated Red Blood Cells % 0.0 %
[2025-06-01 08:36] LABS: Chloride 106 mmol/L (98-107); Potassium 4.8 mmol/L (3.5-5.1); Sodium 139 mmol/L (136-145)
[2025-06-01 08:37] LABS: Anion Gap 8 (5-15); Carbon Dioxide 25 mmol/L (20-31)
[2025-06-01 08:38] LABS: Calcium 9.7 mg/dL (8.7-10.4)
[2025-06-01 08:43] LABS: BUN/Creatinine Ratio 15.6 (10.0-20.0); Blood Urea Nitrogen 22 mg/dL (9-23)
[2025-06-01 08:45] LABS: Glucose 198 mg/dL (74-106)
--- NOTE | 2025-06-01 09:06 | DVH ---
CT HEAD WITHOUT CONTRAST INDICATION: cva COMPARISON: CT HEAD WITHOUT CONTRAST on DOS: 04/10/25, MRI BRAIN HEAD WO CONTRAST on DOS: 04/08/25, CT HEAD WITHOUT CONTRAST on DOS: 04/07/25, CT HEAD WITHOUT CONTRAST on DOS: 08/23/24, CT HEAD WITHOUT CONTRAST on DOS: 08/27/23 TECHNIQUE: CT of the head without intravenous contrast. RADIATION DOSE: CTDIvol: 54 mGy, DLP: 966 mGy*cm FINDINGS: Acute left subdural hematoma is seen measuring up to 1.8 cm in thickness. 8 mm rightward midline shift. No acute territorial infarction. No ventriculomegaly. The visualized paranasal sinuses and mastoid air cells are clear. The surrounding soft tissues and osseous structures are unremarkable. IMPRESSION: 1. Acute left subdural hematoma measuring up to 1.8 cm in thickness with 8 mm rightward midline shift. Critical Findings: Acute left subdural hematoma with 8 mm midline shift indicates a life-threatening condition requiring urgent attention. Findings discussed with , at 06/01/2025, who acknowledged receipt and understanding of the findings. Critical findings discussed with Dr. Hallman by Dr. Pulido via phone on 06/01/2025 09:03 AM.
[2025-06-01 10:49] VITALS: BP 133/68; PULSE 62; RESP 18; TEMP 98.2; O2SAT 97
== END 2025-06-01 11:24 | disposition short-term general hospital (02) ==
LOC: ER 07:43
DX: S06.2XAA Diffuse traumatic brain injury with loss of consciousness status unknown, initial encounter (principal); E11.9 Type 2 diabetes mellitus without complications; I10 Essential (primary) hypertension; Z79.84 Long term (current) use of oral hypoglycemic drugs; Z79.899 Other long term (current) drug therapy; X58.XXXA Exposure to other specified factors, initial encounter; Y93.89 Activity, other specified; Y92.89 Other specified places as the place of occurrence of the external cause; Y99.8 Other external cause status
CPT/HCPCS: 36415; 70450; 80048; 82947; 82962; 85025